=== PATIENT | female | born 1975 | race Caucasian/White ===

== ENCOUNTER → 2018-02-06 20:45 | Outpatient (CLI) | payer SELFPAY ==
[2018-02-15 11:45] LABS: HPV Reflexed? NOT INDICATED
== END ==
PROVIDERS: Visit Provider Obstetrics & Gynecology
DX: Z01.419 Encounter for gynecological examination (general) (routine) without abnormal findings (principal)
CPT/HCPCS: 88175; G0145

== ENCOUNTER 2021-09-21 15:09 | Outpatient (CLI) | payer SELFPAY, OTHER ==
--- NOTE | 2021-09-21 15:17 | US_ITS ---
EXAM: US PELVIS TRANSVAGINAL : 1975 CLINICAL INDICATION: ABNORMAL CT TECHNIQUE: Transvaginal pelvic ultrasound was performed with grayscale and color Doppler imaging. Transvaginal imaging was used for better evaluation of the endometrium and adnexa. This report was created using [employer] report generation technology. COMPARISON: No prior studies are available for comparison. FINDINGS: UTERUS/CERVIX: The uterus measures 9.8 cm in length and is retroflexed. Endometrial thickness is 17 mm. Small nabothian cysts are present. There is no uterine mass. RIGHT OVARY: Right ovary measures 3.5 x 1.8 x 2.3 cm. No evidence of ovarian torsion. LEFT OVARY: Left ovary measures 4.0 x 3.1 x 3.3 cm. Multiple bilateral ovarian follicles are noted largest one measuring 16 mm in diameter on the right and 3.0 cm on the left. FREE FLUID: There is a small amount of physiologic free pelvic fluid present. BLADDER: Not evaluated US/Transvaginal Non- IMPRESSION: Retroflexed uterus with thickened endometrium. Bilateral ovarian follicles. No evidence of ovarian torsion. at 1609 Reported and signed by: Aristides Belle MD Electronically Signed: Aristides Belle MD at 16:07 EST ,
== END 2021-09-21 23:59 | disposition home or self-care (01) ==
PROVIDERS: PCP Family Medicine; Referring Provider Physician Assistant; Visit Provider Physician Assistant
DX: N83.01 Follicular cyst of right ovary (principal); N83.02 Follicular cyst of left ovary; N85.4 Malposition of uterus; R93.89 Abnormal findings on diagnostic imaging of other specified body structures
CPT/HCPCS: 76830

== ENCOUNTER 2021-10-15 14:41 | Outpatient (CLI) | payer OTHER, SELFPAY ==
--- NOTE | 2021-10-15 14:30 | EMB_PTH ---
PATIENT: JENNIFER العراقي LOC: [facility] U#:[id number] AGE/SX: 46/F ROOM: RE10/15/[address]: Dr. Alicia العراقي DO : 1975 BED: DIS: 10/15/2021 SPEC #: [id number] RECD: 10/15/21 16:07 STATUS: THAI PAKO #: [id number] MARILYN: 10/15/21 14:[address]: Alicia العراقي DEPT: SURGICAL PATHOLOGY RECD BY: Helen Brewer ENTERED: 10/18/21 08:36 SP TYPE: ENDOM BX/C MAX DR: Dr. Bryan Chen MD Tissues: Endometrium, NOS Procedures: Surgery Specimen Level IV HEADER OPERATION: Endometrial biopsy PRE-OP DIAGNOSIS: Abnormal uterine bleeding TISSUE SUBMITTED: Endometrial biopsy MICROSCOPIC DIAGNOSIS Endometrium, biopsy: Strips of benign superficial glandular mucosa. See comment. AM:viky 10/19/2021 COMMENT The majority of the glandular mucosa appears to be coming from the endocervix. Clinical correlation is suggested. MICROSCOPIC DESCRIPTION Slides are reviewed. GROSS DESCRIPTION Received is one container labeled with the patient's name and not further designated. The specimen consists of multiple fragments of sutherland hemorrhagic mucoid tissue that in aggregate measure 3 x 2.5 x 0.3 cm. The specimen is totally submitted in one cassette. / SJ:viky 10/18/2021 TC:5 CPT: 29761
[2021-10-22 12:59] LABS: HPV APTIMA, High Risk Negative (Negative)
== END 2021-10-15 23:59 | disposition home or self-care (01) ==
LOC: WOBLAB 14:42
PROVIDERS: PCP Family Medicine; Visit Provider Student in an Organized Health Care Education/Training Program
DX: N93.9 Abnormal uterine and vaginal bleeding, unspecified (principal)
CPT/HCPCS: 36415; 84439; 84443; 87624; 88175; 88305; G0145

== ENCOUNTER 2021-11-11 10:04 | Day surgery (SDC) | payer SELFPAY, OTHER ==
[2021-11-11] VITALS (12 sets, daily range): BP systolic 98–147; BP diastolic 54–89; PULSE 62–84; RESP 16; TEMP 36.6–37.2; O2SAT 95–100; BMI 37.5
--- NOTE | 2021-11-11 | UTC_PTH ---
PATIENT: JENNIFER العراقي LOC: [facility] [place][id number] AGE/SX: 46/F ROOM: RE11/11/[address]: Dr. Alicia العراقي DO : 1975 BED: DIS: 11/11/2021 SPEC #: [id number] RECD: 11/11/21 13:34 STATUS: THAI PAKO #: [id number] MARILYN: 11/11/21 00:[address]: Alicia العراقي DEPT: SURGICAL PATHOLOGY RECD BY: Nicolás Khan ENTERED: 11/12/21 10:41 SP TYPE: NANDINI SANTANA DR: Dr. Bryan Chen MD Tissues: Uterine cervix, NOS Procedures: Surgery Specimen Level IV HEADER OPERATION: Hysteroscopy, D & C Josy, endometrial ablation PRE-OP DIAGNOSIS: Menorrhagia TISSUE SUBMITTED: Uterine curettings MICROSCOPIC DIAGNOSIS Endometrium, curettings: Secretory endometrium with benign stromal hyperplasia consistent with exogenous hormonal effect, acute and chronic inflammation and fibrinopurulent material. Rare strips of benign superficial endocervix. AM:viky 11/15/2021 COMMENT Clinical correlation is suggested. Case has been reviewed in consultation with Dr. Hernandez who concurs with the above diagnosis. IDC:AXEL MICROSCOPIC DESCRIPTION Slides are reviewed. GROSS DESCRIPTION Received in fixative is one container labeled with the patient's name and designated uterine curettings. The specimen consists of multiple fragments of hemorrhagic soft tissue that in aggregate measure 5 x 3 x 0.6 cm. The specimen is totally submitted in four cassettes. / AXEL:viky 11/12/2021 TC:2 CPT: 84299
--- NOTE | 2021-11-11 07:47 | PCM.HP.BLA ---
History and Physical Date of Admission: 11/11/21 HISTORY OF PRESENT ILLNESS: On 10/29/2021, Nedra Wilcox, a 46 year old female 4 0 1 0 4, presented for: Hysteroscopy, dilation and curettage for menorrhagia and acute blood loss anemia secondary to vaginal bleeding. MEDICAL HISTORY: 1. Hypothyroidism ALLERGIES: NKDA MEDICATIONS HISTORY: Denies SURGICAL HISTORY: 1. 01/07/1994 2. 02/03/1995 3. 07/26/1999 4. 06/07/2000 Gallbladder 5. 01/30/2003 and Tubal MENSTRUAL HISTORY: LMP Known?- Approximate-Month KnownAmount/Duration - 5 days, Regularity - Regular, Frequency - monthly days, LMP - 08/16/21, Age Onset Menarche - 11 PAST PREGNANCIES: Total Pregnancies - 5; Full Term Pregnancies - 4; Premature - 0; Abortions, Induced - 0; Abortions, Spontaneous - 1; Ectopics - 0; Multiple Births - 0; Living Children - 4 FAMILY HISTORY: Noncontributory SOCIAL HISTORY: Alcohol Use - denies drinking Smoking - denies smoking Drug Use - denies REVIEW OF SYSTEMS: GENERAL - Denies fever, or chills SKIN - Denies skin changes EYES - Denies visual changes EARS - Denies difficulty hearing NOSE - Denies nasal congestion or bleeding MOUTH - Denies sore throat or difficulty swallowing NECK - Denies pain or swelling RESPIRATORY - Denies shortness of breath or wheezing CARDIOVASCULAR - Denies palpitations or chest pain GASTROINTESTINAL - Denies nausea, vomiting, diarrhea, constipation GENITOURINARY - prolonged menses bleeding. Side and back pain MUSCULOSKELETAL - Denies joint or muscle pain NEUROLOGICAL - Denies localized numbness or weakness PSYCHIATRIC - Denies depression or anxiety ENDOCRINE - Denies heat or cold intolerance, weight loss or gain HEMATO-IMMUNOLOGIC - Denies excessive bleeding with cuts CONSTITUTIONAL - NAD, well nourished, and well developed SKIN - No rash, lesions, or ulcers HEENT - Normocephalic, PERRLA, EOMI LUNGS - normal respiratory rate and rhythm ABDOMEN - Without hepatosplenomegaly, distention, masses, rebound, or guarding; normal bowel sounds; no hernias EXTREMITIES - No edema or calf tenderness NEUROLOGICAL - Cranial nerves II-XII grossly intact PSYCHIATRIC - A and O to time, place, person, mood and affect ASSESSMENT/PLAN: 1. Abnormal Uterine And Vaginal Bleeding, menorrhagia. Hysteroscopy, dilation and curettage for menorrhagia and acute blood loss anemia secondary to vaginal bleeding. Risk, benefits, alternatives were discussed with patient. Risks include but are not limited to: Risk of bleeding twin transfusion, infection, injury to surrounding tissue including bowel/bladder/uterine perforation, VTE, ICU admission. Patient aware and consented.
[2021-11-11 10:38] LABS: Internal QC Validated? YES +Cl - CLEAR BKGD
[2021-11-11] MEDS: Lactated Ringers 1,000 ML 15 ML IV ×2 (10:41→13:50)
[2021-11-11 10:42] LABS: Pregnancy, Urine Negative Negative
--- NOTE | 2021-11-11 11:40 | PCM.OPRPT ---
Report of Operation Date of Procedure: 11/11/21 Pre-Operative Diagnosis: Abnormal uterine bleeding, menorrhagia Post-Operative Diagnosis: Abnormal uterine bleeding, menorrhagia Surgery/Procedure Performed:: , Dilation and curettage, endometrial ablation with Josy Description of Surgical Findings:: Normal-appearing external genitalia. Minimal uterine descensus. Thickened fluffy endometrial lining. Type of Anesthesia: MAC Specimen's removed: Endometrial curettings Estimated Blood Loss (mL): 5 cc Fluids Replaced: 700cc Description of Procedure: Indication/risk/benefits: 46 yo planned for hysteroscopy, dilation curettage for abnormal uterine bleeding and menorrhagia. All risk, benefits, alternatives discussed with patient. Risk include but not limited to: Risk of bleeding to the point transfusion, infection, injury to surrounding tissue including bowel/bladder/uterine perforation, VTE, ICU admission. Patient aware and consented. Procedure: Patient taken to the operating room and placed under MAC anesthesia. Patient placed in the dorsal lithotomy position and prepped and draped in the usual sterile fashion. Weighted speculum placed in posterior vagina and Gatica retractor used to visualize cervix. Anterior lip of cervix grasped with an Allis clamp. Cervix sequentially dilated. Hysteroscope placed through cervical canal noting fluffy endometrial cavity as stated above. Uterus sounded to 8 cm, cavity length 5 cm. Endometrium curetted and a 360 degree manner. Josy device opened. Josy device placed through cervical canal and deployed. Cavity assessment passed. Ablation completed. Josy device removed. Allis clamp removed, cervix hemostatic. Weighted speculum removed. At the end of the procedure all needle, lap, sponge counts were correct x2. Urine output: 100cc Complications None
--- NOTE | 2021-11-11 12:30 | PCM.DC ---
Discharge Instructions Diet Discharge Diet: No restrictions Activity Discharge Activity: Return to Normal Activity and May Shower May resume sexual activity in: 2 weeks Weight Bearing Status: Weight bearing as tolerated Lifting Restrictions: None Dressing / Incision Call your doctor if you observe: Fever of 101 or Higher, Change in Color, Inability to urinate, Using more than 1 pad per hour, Shortness of breath, Dizziness, Swelling in the ankles, Chest pain and Calf discomfort Follow Up Care Please Follow Up With: Alicia Wilcox DO When: 1-2 week postoperative visit Test Results: Test results from this visit will be discussed in further detail at your follow-up appointment, if applicable. Discharge Plan Admission Primary Reason for Your Visit: Endometrial Ablation Attending Provider: Alicia Wilcox Primary Care Provider: Bryan Chen Discharge Orders/Prescriptions Prescriptions: No Action vitamin A 2,400 mcg Capsule 2,400 mcg PO DAILY RF: 0 cholecalciferol (vitamin D3) [Vitamin D3] 50 mcg (2,000 unit) Capsule 50 mcg PO DAILY RF: 0 levothyroxine 50 mcg Capsule 50 mcg PO DAILY RF: 0 Referrals / Follow Up: Bryan Chen MD [Primary Care Provider] - Disposition Disposition (needs filled in before D/C Order can be placed): Home, Self Care
== END 2021-11-11 15:33 | disposition home or self-care (01) ==
LOC: SDC 10:06 → AC 10:08
PROVIDERS: Anesthesiology; PCP Family Medicine; Referring Provider Student in an Organized Health Care Education/Training Program; Visit Provider Student in an Organized Health Care Education/Training Program
PROC: 0U5B8ZZ Destruction of Endometrium, Via Natural or Artificial Opening Endoscopic (ICD-10-PCS; CPT 58558; principal; 2021-11-11 11:15)
DX: N85.01 Benign endometrial hyperplasia (principal); E03.9 Hypothyroidism, unspecified; E07.9 Disorder of thyroid, unspecified; Z79.899 Other long term (current) drug therapy
CPT/HCPCS: 58558; 00952; 81025; 86850; 86900; 86901; 87426; 88305; J7120; J2405

== ENCOUNTER 2024-03-05 19:57 | Emergency (ER) | payer OTHER, SELFPAY ==
[2024-03-05 19:58] VITALS: BP 131/93; PULSE 84; RESP 20; TEMP 35.9; O2SAT 99
--- NOTE | 2024-03-05 20:28 | MRI_ITS ---
EXAM: MR LUMBAR SPINE WITHOUT INTRAVENOUS CONTRAST CLINICAL INDICATION: Low back pain,rt leg, perianal numbness, absent anal wink TECHNIQUE: Multiplanar and multisequence MR images of the lumbar spine without intravenous contrast. COMPARISON: No relevant prior studies available. FINDINGS: VERTEBRAE: Straightening of the usual lordotic curvature. SPINAL CORD: Unremarkable. Normal position and signal intensity of the conus medullaris at T12-L1.. SOFT TISSUES: Unremarkable. /SPINAL CANAL/NEURAL FORAMINA: L1-L2: Unremarkable. Normal disc height and morphology. Normal spinal canal and lateral recesses. Normal neuroforamina. L2-L3: Unremarkable. Normal disc height and morphology. Normal spinal canal and lateral recesses. Normal neuroforamina. L3-L4: Normal height but mild annular disc bulge, minimal narrowing of proximal left neural foramen. Mild ligamentum flavum hypertrophy. Slight effacement of the left lateral recess. No devin spinal canal stenosis L4-L5: Normal height mild annular circumferential disc bulge, mild ligamentum flavum hypertrophy, moderate proximal bilateral neural foraminal stenosis. Tiny focus of high signal intensity in mild right bulging of the disc may be due to slight annular tear. Minimal flattening of the thecal sac anterior to the right lateral recess. L5-S1: Moderate-marked decreased disc height. Moderate annular disc bulge, broad base disc projecting right laterally, with flattening of the ventral thecal sac adjacent to the lateral recesses and mild right greater than left displacement of the S1 nerve roots. There appears to be small focal right posterior lateral herniated disc projecting roughly 7 mm distal to the expected disc margin, best seen on sagittal images. High signal intensity in the left L5-S1 facet joint. Mild Modic type signal changes in the opposing L5 and S1 endplates. MRI/Spine Lumbar (Routine) IMPRESSION: Multilevel degenerative changes. Prominent disc space narrowing, Modic type endplate degenerative changes, annular irregular disc bulging, and superimposed small right focally extruded disc at L5-S1 with mild displacement of the right S1 nerve root. No devin spinal canal stenosis. Electronically Signed: Katiana Fleming MD at 23:21 EDT ,
[2024-03-05] MEDS: Ondansetron 4 MG/2 ML Vial IV (21:00)
[2024-03-05] MEDS: Ketorolac 15 MG/ML Vial IM (21:00)
[2024-03-05] MEDS: HYDROmorphone 0.5 MG/0.5 ML SYRINGE IV (21:01)
[2024-03-05 22:00] VITALS: BP 124/78; PULSE 72; RESP 16; O2SAT 99
--- NOTE | 2024-03-05 23:39 | ED.VIS.BACK ---
HPI History of Present Illness Chief Complaint: Flank Pain Detail of Chief Complaint: Right lower back pain radiating down buttocks posteriorly to ankle Informant: patient Onset/Context/Timing Onset: Days Context: Sudden Onset Chronic pain exacerbated by: Movement, sitting Injury: - (No history of trauma) Timing: Continuous Quality: Dull, Aching and Burning Location: Lumbar, Buttock and Right Leg Current Severity: Mild Maximum Severity: Severe Worsened by: improves with Movement and Bending Relieved by: Nothing Associated Symptoms Associated Symptoms: Radiation to Right Leg and - (Patient reports decreased sensation when she wipes after using the restroom); Negative for Numbness, Tingling, Fever, Abdominal Pain, Dysuria, Unable to Ambulate, Unable to Transfer, Urinary Retention, Urinary Incontinence, Constipation or Fecal Incontinence Narrative Narrative: Patient is a 49-year-old woman. She has history of hypothyroidism. She was seen by chiropractor today. He is concerned she has a herniated disc. She denies fever, chills night sweats. She denies bowel bladder dysfunction. She does report decreased sensation in the perineum since yesterday. She states when she wipes does not feel the same/normal. She also complains of severe pain radiating down the posterior aspect of her leg all the way to her foot. She prefers to stand over sitting. She prefers to have her right leg flexed. There is no history of trauma. There is no history of dental procedure. She is not on an anticoagulant or antithrombotic. She denies dragging her foot. Prior similar symptoms: Yes Recent Illness/Hospitalization: Yes [facility] Medical History Wears glasses Wears dentures Thyroid disease Arthritis Anemia Restless legs Syncope History of IBS Non-smoker History of edema History of rheumatic fever Home Medications ?Medication ?Instructions ?Recorded ?Last Taken ?Type cholecalciferol (vitamin D3) 50 50 mcg PO DAILY 11/05/21 Unknown History mcg (2,000 unit) capsule (Vitamin D3) levothyroxine 50 mcg capsule 50 mcg PO DAILY 11/05/21 11/11/21 06:00 History vitamin A 2,400 mcg capsule 2,400 mcg PO DAILY 11/05/21 Unknown History methylprednisolone 4 mg tablets in 4 mg PO UD #1 packet 03/05/24 Unknown Rx a dose pack oxycodone-acetaminophen 5 mg-325 1 tab PO Q6H PRN PRN pain 5 days 03/05/24 Unknown Rx mg tablet #20 TABLETS Allergy/AdvReac Type Severity Reaction Status Date / Time codeine Allergy Mild Nausea Verified 03/05/24 19:58 adhesive tape (surgical tape) Allergy Rash Verified 06/29/22 16:37 Surgical History Hx laparoscopic cholecystectomy History of Social History (Updated 03/05/24 @ 23:[address] Emmanuel Lincoln MD) household members: spouse Smoking Status: Never smoker ROS ROS ED Constitutional Constitutional ED: Denies chills, fever(s), subjective or sweats Eyes Eyes: Denies blurry vision, change in vision or diplopia ENT ENT ED: Denies ear pain, rhinorrhea or sore throat Cardiovascular Cardiovascular: Denies chest pain, orthopnea, palpitations or paroxysmal nocturnal dyspnea Respiratory/Chest Respiratory/Chest: Denies dyspnea, dyspnea on exertion, orthopnea or paroxysmal nocturnal dyspnea Gastrointestinal Gastrointestinal: Denies abdominal pain, constipation, diarrhea, nausea or vomiting Genitourinary Genitourinary ED: Denies dysuria, hematuria or urinary frequency Musculoskeletal Musculoskeletal: Reports back pain; Denies arthralgias, myalgias or neck pain Integumentary Denies rash Neurologic Neurologic: Denies headache(s) or paresthesias Endocrine Endocrinology: Denies cold intolerance or heat intolerance Hematologic/Lymphatic Hematologic/Lymphatic: Denies easy bleeding or easy bruising EXAM Physical Exam Const Vital Signs: 03/05/24 19:58 03/05/24 22:00 Temperature 96.6 F L Temperature Source Temporal Pulse Rate 84 72 Respiratory Rate 20 H 16 Blood Pressure 131/93 H 124/78 H Blood Pressure Mean 105 93 Pulse Ox 99 99 Oxygen Delivery Method Room Air Room Air Positive well nourished and well developed Constitutional Narrative: Patient appears uncomfortable. Every time I straighten out her legs she flexes at the knee and hip. She states this causes her more pain. General Appearance ED: well developed; Negative for NAD HEENT Reports moist mucous membranes HEENT Narrative: Head is atraumatic normocephalic. Ears normal. Nares patent. Eyes PERRL and EOMs intact bilaterally General Eye ED: Negative for pale conjunctiva or scleral icterus Neck no lymphadenopathy, supple and no JVD Resp normal respiratory effort and clear to auscultation bilaterally Cardio regular rate, regular rhythm, S1 normal heart sound, S2 normal heart sound and no murmurs GI normal to inspection, nondistended, normoactive bowel sounds, soft to palpation, non-tender, non-distended and no masses Back/Spine normal to inspection and no thoracic nor lumbar tenderness Back/Spine Narrative: Patient has equivocal crossover test. EHL is weaker on the right. This may be due to pain. There is no clonus or Babinski sign. Patient reports altered sensation L5-S1 on the left. Sensation L3 and L4 are normal bilaterally. Rectal tone is diminished. Patient did not have an anal wink. Patella reflex was 2+ and symmetric. Ankle reflex on the right was diminished compared to the left. DP and PT pulse are palpable. Patient able to plantar and dorsiflex against resistance. Because of the amount of pain she was not able to stand up to ambulate and assess if she could walk on heels and toes and perform a 1 legged squat. Lumbar Spine / Lower Back: straight leg raise positive right at 30 degrees Extremity normal to inspection and no clubbing, cyanosis or edema General Extremety ED: Negative for edema or tenderness General Extremity: Negative for edema Neuro oriented x3 and no sensory deficits noted Deep Tendon Reflexes: Rt Patellar (L4): 2+, Lt Patellar (L4): 2+, Rt Ankle (S1): 1+ and Lt Ankle (S1): 2+ Deep Tendon Reflexes Back: Rt Patellar (L4): 2+, Lt Patellar (L4): 2+, Rt Ankle (S1): 1+ and Lt Ankle (S1): 2+ Plantar Reflex: Downgoing: bilateral Psych mental status grossly normal Skin no rashes or lesions noted and no wounds MDM MDM MDM Narrative Medical decision making narrative: Concern patient has a herniated disc possibly L5-S1. However with patient reporting decreased perianal sensation decreased rectal tone and no anal wink concerned this may represent cauda equina from a herniated disc. Stat MRI was obtained. She was medicated with ketorolac, hydromorphone for pain and Zofran for nausea. Radiography Diagnostic Testing: Clinical Impression(s) from Imaging Studies Lumbar Spine MRI 03/05/24 20:28 IMPRESSION: Multilevel degenerative changes. Prominent disc space narrowing, Modic type endplate degenerative changes, annular irregular disc bulging, and superimposed small right focally extruded disc at L5-S1 with mild displacement of the right S1 nerve root. No devin spinal canal stenosis. Electronically Signed: Katiana Fleming MD at 23:21 EDT , Discharge Plan Triage Chief Complaint: Flank Pain ED Provider: Emmanuel Lincoln Dx/Rx/DC Orders Clinical Impression: Lumbosacral radiculopathy at L5, Herniation of intervertebral disc between L5 and S1, Elevated blood-pressure reading without diagnosis of hypertension Prescriptions: New methylprednisolone 4 mg tablets,dose pack 4 mg PO UD Qty: 1 0RF oxycodone-acetaminophen 5-325 mg tablet 1 tab PO Q6H PRN PRN (Reason: pain) 5 Days Qty: 20 0RF No Action vitamin A 2,400 mcg Capsule 2,400 mcg PO DAILY cholecalciferol (vitamin D3) [Vitamin D3] 50 mcg (2,000 unit) Capsule 50 mcg PO DAILY levothyroxine 50 mcg Capsule 50 mcg PO DAILY Primary Care Provider: Claudette Alexandra Referrals: Christian Rodriguez MD [Med Staff - Active Staff] - 3-5 Days Claudette Alexandra PA [Primary Care Provider] - Activity Restrictions/Additional Instructions: Return if the pain is severe and not controlled by the medicine prescribed. Return also if your foot drops and you are dragging it. Otherwise follow-up with Dr. Rodriguez Print Language: Yakut Disposition Disposition: Home, Self Care
[2024-03-06] VITALS: BP 107/74; PULSE 54; RESP 16; O2SAT 98
[2024-03-06] MEDS: HYDROmorphone 0.5 MG/0.5 ML SYRINGE IV (00:18)
[2024-03-06 00:19] VITALS: BP 107/74; PULSE 54; RESP 16; TEMP 36.6; O2SAT 98
== END 2024-03-06 00:22 | disposition home or self-care (01) ==
PROVIDERS: Emergency Provider Emergency Medicine; PCP Physician Assistant; Visit Provider Emergency Medicine
DX: M51.17 Intervertebral disc disorders with radiculopathy, lumbosacral region (principal); R03.0 Elevated blood-pressure reading, without diagnosis of hypertension
CPT/HCPCS: 72148; 96372; 96374; 96375; 96376; 99282; J2405

== ENCOUNTER → 2024-04-18 | Outpatient (CLI) | payer OTHER, SELFPAY ==
--- NOTE | 2024-04-18 | EMB_PTH ---
PATIENT: JENNIFER العراقي LOC: [facility] U#:[id number] AGE/SX: 49/F ROOM: RE04/18/[address]: OLIVIA Farrell : 1975 BED: DIS: 04/18/2024 SPEC #: [id number] RECD: 04/18/24 15:16 STATUS: THAI PAKO #: [id number] MARILYN: 04/18/24 00:[address]: Stefanie Newby NP DEPT: SURGICAL PATHOLOGY RECD BY: Loi Avalos ENTERED: 04/18/24 15:17 SP TYPE: [facility] BX/C MAX DR: RONI Robertson Tissues: Endometrium, NOS Procedures: Surgery Specimen Level IV HEADER OPERATION: Endometrial biopsy PRE-OP DIAGNOSIS: Abnormal uterine bleeding TISSUE SUBMITTED: Endometrial tissue MICROSCOPIC DIAGNOSIS Endometrial biopsy: Strips of endometrial epithelium. Fragments of benign endocervical epithelium, blood and mucous. See comment. AXEL/ 04/19/2024 COMMENT The specimen predominantly consists of endometrial epithelium. Underlying stroma is not seen. Repeat biopsy is suggested for definite diagnosis, if clinically indicated. Case has been reviewed in consultation with Dr. Hayward who concurs with the above diagnosis. IDC:AM MICROSCOPIC DESCRIPTION Slides are reviewed. GROSS DESCRIPTION Received in fixative is one container labeled with the patient's name and designated Endometrial biopsy. The specimen consists of multiple irregular fragments of hemorrhagic soft tissue that in aggregate measure 2.0 x 2.0 x 0.1 cm. The specimen is totally submitted in one cassette. 04/18/2024 TC:5 CPT:68396
[2024-04-18 11:36] LABS: Absolute Lymphocyte Count 2.19 X10^3/uL (0.83-4.51); Basophil# 0.05 X10^3/uL; Basophil% 0.7 % (0-1); Eosinophil# 0.12 X10^3/uL; Eosinophils% 1.7 % (0-5); Hematocrit 37.7 % (37-47); Hemoglobin 12.3 g/dL (12.0-15.0); Lymphocyte # 2.19 X10^3/ul (0.83-4.51); Lymphocyte % 31.4 % (19-41); Mean Corp Hgb Conc 32.6 g/dL (32-36); Mean Corpuscular Hgb 28.6 pg (27.0-32.0); Mean Corpuscular Volume 87.7 fL (81-99); Mean Platelet Vol. 9.1 fl (6.2-12.0); Monocyte# 0.57 X10^3/uL; Monocyte% 8.2 % (0-10); NRBC Flagged by Analyzer 0 % (0-5); Neutrophil # 4.02 X10^3/uL (2.7-7.7); Neutrophil % 57.7 % (47-70); Platelet Count 333 K/mm3 (150-450); RBC Distribution Width CV 13.4 % (11.6-14.6)
[2024-04-18 13:09] LABS: Estradiol 87.2 pg/mL; Follicle Stimulating Hormone 13.4 mIU/mL
[2024-04-25 15:09] LABS: HPV APTIMA, High Risk Negative (Negative)
== END | disposition home or self-care (01) ==
PROVIDERS: PCP Physician Assistant; Referring Provider Nurse Practitioner Women's Health; Visit Provider Nurse Practitioner Women's Health
DX: Z12.4 Encounter for screening for malignant neoplasm of cervix (principal); N93.9 Abnormal uterine and vaginal bleeding, unspecified
CPT/HCPCS: 36415; 82670; 83001; 85025; 87624; 88175; 88305; G0145

== ENCOUNTER 2024-07-16 05:28 | Day surgery (SDC) | payer SELFPAY, OTHER ==
[2024-07-16] VITALS (13 sets, daily range): BP systolic 131–141; BP diastolic 76–92; PULSE 70–84; RESP 16; TEMP 36.1–36.7; O2SAT 97–100; BMI 34.5
[2024-07-16] MEDS: Lactated Ringers 1,000 ML 40 ML IV (06:10)
[2024-07-16 06:17] LABS: Internal QC Validated? YES +Cl - CLEAR BKGD; Pregnancy, Urine Negative Negative; Record Kit Lot#,Urine Preg 872158
[2024-07-16 06:37] LABS: Hematocrit 38.5 % (37-47); Hemoglobin 12.7 g/dL (12.0-15.0); Mean Corpuscular Hgb 28.7 pg (27.0-32.0); Mean Corpuscular Volume 86.9 fL (81-99); Mean Platelet Vol. 9.3 fl (6.2-12.0); Platelet Count 243 K/mm3 (150-450); RBC Distribution Width CV 12.2 % (11.6-14.6); RBC Distribution Width SD 39.1 fl (35.1-43.9); Red Blood Count 4.43 M/mm3 (4.2-5.4); White Blood Count 5.8 K/mm3 (4.4-11.0)
[2024-07-16] MEDS: Phenazopyridine 95 MG Tablet 190 MG PO (06:43)
[2024-07-16] MEDS: Celecoxib 200 MG Capsule 400 MG PO (06:44)
[2024-07-16] MEDS: Acetaminophen 500 MG Tablet 1000 MG PO (06:44)
--- NOTE | 2024-07-16 06:44 | PRE.ANES_ITS ---
ASA Classification* ASA Classification ASA Classification: 2 Assessment & Plan Anesthesia* Anesthesia Assessment Anesthesia Assessment: Discussed sedation and/or anesthesia options, risks, benefits, and alternatives with patient/parents/legal guardian/POA. Questions invited. The patient/parents/legal guardian/POA seems to understand and agrees to proceed with anesthesia plan. Reviewed the physical assessment, medical history, allergy history and patient home medications list prior to surgery/procedure/anesthetic and documented any changes. Performed airway and anesthesia risk assessments. Anesthesia Type Anesthesia Type: General Anesthesia Focused Assessment* Temperature: 98.0 F Pulse Rate: 80 Blood Pressure: 138/80 Respiratory Rate: 16 Pulse Ox: 100 Airway Assessment Mouth opens: >3 cm Mallampati Score: II Focused Labs Anesthesia Preop lab: CBC WBC 5.8 K/mm3 (4.4-11.0) 07/16/24 06:20 RBC 4.43 M/mm3 (4.2-5.4) 07/16/24 06:20 Hgb 12.7 g/dL (12.0-15.0) 07/16/24 06:20 Hct 38.5 % (37-47) 07/16/24 06:20 Plt Count 243 K/mm3 (150-450) 07/16/24 06:20 CHEMISTRY Magnesium Pending 07/16/24 06:20 TSH 4.90 uIU/mL (0.358-3.74) H 10/15/21 14:43 COAG Urine Test Negative Negative 07/16/24 06:05 Pre-Assessment Diagnosis/Proposed Procedure Planned Operative Procedure(s): (B) Lap Robotic Hysterectomy Brandt Salping Anesthesia History 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 When Was Last Pacemaker Check QUESTION #4 FULL TEXT: You/Your Family Experience fever (hyperthermia) with Anesthesia Last Oral Intake Last Oral intake: Last Oral Intake NPO since 04:30 07/16/24 06:34 Meds taken in AM with sips of Yes 07/16/24 06:34 water? Meds patient instructed to levothyroxine, lexapro 07/16/24 06:34 take am of surgery PONV PONV - slot operations director: PONV - slot operations director Female Yes 07/02/24 09:58 HX of Motion Sickness No 07/02/24 09:58 HX of N/V After Surgery Yes 07/02/24 09:58 Non-Smoker Yes 07/02/24 09:58 Duration of Surgery greater Yes 07/02/24 09:58 than 60 minutes Number of Risk Factors 4 07/02/24 09:58 PONV Score Severe Risk 07/02/24 09:58 Height & Weight Height & Weight: Anesthesia: Height & Weight Height 5 ft 3 in 07/16/24 06:34 Weight: 88.4 kg 07/16/24 06:34 Body Mass Index (BMI) 34.5 07/16/24 06:34 Respiratory Assessment Respiratory Assessment - slot operations director: Respiratory Tract Infection Hx - slot operations director Hx Respiratory Tract Infection No 07/02/24 09:58 STOP Sleep Apnea STOP Sleep Apnea - slot operations director: STOP Sleep Apnea - slot operations director Hx Hypertension No 07/02/24 09:58 Hx Sleep Apnea No 07/02/24 09:58 CPAP BIPAP Do you snore loudly (louder No 07/02/24 09:58 than talking or can be heard Do you often feel tired/ No 07/02/24 09:58 fatigued/ sleepy during daytime? Has anyone observed you stop No 07/02/24 09:58 breathing during sleep? STOP Results Negative 07/02/24 09:58 QUESTION #5 FULL TEXT : Do you snore loudly (louder than talking or can be heard through closed doors)? 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 Specify any problems Hx of Preganancy in last 3 N/A 07/02/24 09:58 Months Nurse Filling Out Transfusion NBUCHER 07/02/24 09:58 & Questions: Date: 07/02/24 07/02/24 09:58 Time: 09:59 07/02/24 09:58 Patient unable to answer at this time (ie. confused, unrespo /Reproduction History /Reproductive History - slot operations director: /Reproductive Hx- slot operations director Hx Now No 07/02/24 09:58 Gestational Age (in weeks): EDC: Hx Hx Para Hx Section SAB No 07/02/24 09:58 Active Medications Active Medications: Current Medications Generic Name Dose Route Start Last Admin Trade Name Freq PRN Reason Stop Dose Admin Acetaminophen 1,000 mg 07/16/24 07:30 Acetaminophen 500 Mg Tablet PO 07/16/24 07:31 PREOP ONE Celecoxib 400 mg 07/16/24 07:30 Celecoxib 200 Mg Capsule PO 07/16/24 07:31 X1 ONE Gabapentin 600 mg 07/16/24 07:30 Gabapentin 600 Mg Tablet PO 07/16/24 07:31 PREOP ONE Lactated Ringer's 1,000 mls @ 40 mls/hr 07/16/24 07:30 IV .Q25H SUZY Cefazolin Sodium 2 gm/ Sodium 110 mls @ 150 mls/hr 07/16/24 07:30 Chloride IV 07/16/24 08:13 PREOP ONE Lactated Ringer's 1,000 mls @ 40 mls/hr 07/16/24 07:30 IV .Q25H SUZY Insulin Human Lispro 0 unit 07/16/24 07:30 Insulin Lispro 100 Unit/Ml Insuln.Pen SC Q4H PRN PRN BG >/= 180, SEE PROTOCOL Protocol Ondansetron HCl 4 mg 07/16/24 07:30 Ondansetron 4 Mg/2 Ml Vial IV 07/16/24 07:31 X1 ONE Phenazopyridine HCl 190 mg 07/16/24 07:30 Phenazopyridine 95 Mg Tablet PO 07/16/24 07:31 X1 ONE [facility] Medical History Depression PONV (postoperative nausea and vomiting) Wears glasses Wears dentures Thyroid disease Arthritis Anemia Restless legs Syncope History of IBS Non-smoker History of edema History of rheumatic fever Home Medications ?Medication ?Instructions ?Recorded ?Last Taken ?Type cholecalciferol (vitamin D3) 50 50 mcg PO DAILY 11/05/21 Unknown History mcg (2,000 unit) capsule (Vitamin D3) vitamin A 2,400 mcg capsule 2,400 mcg PO DAILY 11/05/21 Unknown History escitalopram oxalate 20 mg tablet 20 mg PO QDAY 04/18/24 07/16/24 04:30 History (Lexapro) levothyroxine 25 mcg capsule 25 mcg PO QDAY 06/17/24 07/16/24 04:30 History FACTOR 5 07/02/24 07/07/24 History Allergy/AdvReac Type Severity Reaction Status Date / Time codeine Allergy Mild Nausea Verified 07/16/24 06:32 adhesive tape (surgical tape) Allergy Rash Verified 07/16/24 06:32 Family History Father Cancer Throat Surgical History S/P endometrial ablation History of mandibular surgery S/P knee surgery History of back surgery Hx laparoscopic cholecystectomy History of Social History household members: spouse current occupational status: unemployed Smoking Status: Never smoker alcohol intake: never substance use type: does not use seatbelt use: always do you feel safe at home: Yes additional social history: - [employer] Review of Systems (Anesthesia) ROS Narrative System reviewed and no additional complaints, except as documented.
[2024-07-16] MEDS: Gabapentin 600 MG Tablet PO (06:45)
[2024-07-16 07:01] LABS: Magnesium 2.5 mg/dL (1.6-2.6)
[2024-07-16] MEDS: Magnesium 1 GM over 15 mins IV (07:22)
--- NOTE | 2024-07-16 07:27 | HP.PCM_ITS ---
History and Physical Date of Admission: 07/16/24 Intake Vital Signs 04/18/2410:24 06/17/2409:27 06/17/2409:29 Height 5 ft 3 in 5 ft 3 in 5 ft 3 in Weight: 192 lb 6 oz BMI 34.0 BP 130/83 H Intake Visit Reasons: surgical consult Heating Fixture Tender Required: No Is patient in pain?: No Allergies codeine Allergy (Mild, Verified 06/17/24 09:26) Nauseaadhesive tape (surgical tape) Allergy (Verified 06/17/24 09:26) Rash Medications ?Medication ?Instructions ?Recorded ?Confirmed ?Type cholecalciferol (vitamin D3) 50 50 mcg PO DAILY 11/05/21 06/17/24 History mcg (2,000 unit) capsule (Vitamin D3) vitamin A 2,400 mcg capsule 2,400 mcg PO DAILY 11/05/21 06/17/24 History oxycodone-acetaminophen 5 mg-325 1 tab PO Q6H PRN PRN pain 5 days 03/05/24 06/17/24 Rx mg tablet #20 TABLETS escitalopram oxalate 20 mg tablet 20 mg PO QDAY 04/18/24 06/17/24 History (Lexapro) norethindrone acetate 5 mg tablet 5 mg PO .COMPLEX #45 tabs 05/27/24 06/17/24 Rx levothyroxine 25 mcg capsule 25 mcg PO QDAY 06/17/24 06/17/24 History Post menopausal: No Patient : No : No PFSH Medical History Wears glasses Wears dentures Thyroid disease Arthritis Anemia Restless legs Syncope History of IBS Non-smoker History of edema History of rheumatic fever Surgical History S/P endometrial ablation History of mandibular surgery S/P knee surgery History of back surgery Hx laparoscopic cholecystectomy History of Family History Father Cancer Throat Social History household members: spouse current occupational status: unemployed Smoking Status: Never smoker alcohol intake: never substance use type: does not use seatbelt use: always do you feel safe at home: Yes additional social history: - Stephen Kirby [facility] surgical consult Details: JENNIFER WILCOX is a 49 year old (all sections) who presents for discussion about hysterectomy. She had an ablation with Alicia Wilcox in 2021 that did not take. She spots almost every day and worse with intercourse. Ultrasound shows a 7/7 x 4.2 x 5.4 cm uterus, normal ovaries. She had an EMB recently that was normal. Her TSH was elevated but she is now on levothyroxine by her pcp. She has a h/o back surgery and jaw surgery (this year) History 5 Elective abortions Hx Para 4 Spontaneous abortions Hx # Term Pregnancies Ectopic pregnancies Hx # Pregnancies Multiple births # of living children 4 ROS Const ROS Unobtainable: All systems reviewed & are unremarkable except as noted in H Resp Resp: Reports system reviewed and no additional complaints, except as documented; Denies cough GI GI: Reports as per HPI Psych Psych: Reports system reviewed and no additional complaints, except as documented Exam Const General: cooperative, healthy appearing, comfortable and no acute distress Resp Effort & Inspection: normal respiratory effort Skin General: no rashes or lesions noted Psych Appearance: grossly normal Speech and Movement: speech and movement normal Coding Level of Care Code Off vis,est,level 4 Diagnoses History of Z98.891 History of endometrial ablation Z98.890 Abnormal uterine bleeding (AUB) N93.9 Assessment and Plan Assessment and Plan (1) History of : Status: Acute Comment: X4 (2) History of endometrial ablation: Status: Acute Comment: 2021 no menses X 1 year (3) Abnormal uterine bleeding (AUB): Status: Acute Comment: EMB NL. Provera Rx: will call if prolonged menses recurs and wants LAVH Plan: After discussing the patient's diagnosis and treatment plan options, patient wis hes to proceed with surgical management. I have discussed with the patient the risks, benefits, and alternatives of the procedure which include but are not limited to risks of anesthesia, bleeding, infection, possible damage to bowel, bladder, or surrounding vasculature which could lead to additional surgery to evaluate any complications. Patient agrees to procedure and wishes to proceed. ACOG/uptodate references given for additional information regarding procedure. plan is for a total robotic hysterectomy, bs. plan to rpt tsh prior to surgery. Medications: New levothyroxine 25 mcg PO QDAY
--- NOTE | 2024-07-16 07:28 | PCM.DC ---
Discharge Instructions Diet Discharge Diet: No restrictions DC O2, CPAP, BIPAP needs Additional Home O2 Discharge instructions: No Dressing / Incision May resume sexual activity in: 6 weeks Weight Bearing Status: Full weight bearing Dressing / Incision Call your doctor if your incision/area has: Continuous Slow Oozing, Sudden Increased Bleeding, Increased Pain/ Swelling, Increased Redness and Foul Smelling Discharge Call your doctor if you observe: Fever of 101 or Higher, Using more than 1 pad per hour, Shortness of breath, Chest pain and Uncontrolled pain Suture Line Care: Avoid Pulling/Pushing and Avoid Pinching/Bending Remove Dressing in: 1 week (if present) Cleanse incision/area with: Soap & Water and Keep Dressing Clean & Dry Follow Up Care Please Follow Up With: Amada Swartz DO When: Call to make an appointment with your doctor for a postop visit in 2 and 6 weeks Test Results: Test results from this visit will be discussed in further detail at your follow-up appointment, if applicable. Discharge Plan Admission Primary Reason for Your Visit: hysterectomy Attending Provider: Amada Swartz Primary Care Provider: Claudette Alexandra Instructions Print Language: Macedonian Discharge Orders/Prescriptions Prescriptions: New ibuprofen 800 mg tablet 800 mg PO Q8H PRN (Reason: pain) Qty: 30 0RF ondansetron HCl 4 mg tablet 4 mg PO Q6H PRN (Reason: nausea and vomiting) Qty: 20 0RF oxycodone-acetaminophen [Percocet] 5-325 mg tablet 1 tab PO Q4H PRN (Reason: pain) 7 Days Qty: 30 0RF Rx Instructions: 1-2 tabs q 4 hrs as needed for pain Continued escitalopram oxalate [Lexapro] 20 mg tablet 20 mg PO QDAY levothyroxine 25 mcg capsule 25 mcg PO QDAY vitamin A 2,400 mcg Capsule 2,400 mcg PO DAILY cholecalciferol (vitamin D3) [Vitamin D3] 50 mcg (2,000 unit) Capsule 50 mcg PO DAILY Held FACTOR 5 Hold Instructions: Resume on 08/16/24. do not use for one month post op Referrals / Follow Up: Claudette Alexandra PA [Primary Care Provider] - Disposition Disposition (needs filled in before D/C Order can be placed): Home, Self Care
--- NOTE | 2024-07-16 07:30 | HYST_PTH ---
PATIENT: JENNIFER العراقي LOC: [facility] [place] [facility] [place][id number] AGE/SX: 49/F ROOM: RE07/16/[address]: Dr. Amada Swartz DO : 1975 BED: DIS: 07/16/2024 SPEC #: [id number] RECD: 07/16/24 11:13 STATUS: THAI PAKO #: [id number] MARILYN: 07/16/24 07:[address]: Amada Swartz DEPT: SURGICAL PATHOLOGY RECD BY: Helen Brewer ENTERED: 07/16/24 12:08 SP TYPE: HYSTERECT OTHR DR: RONI Robertson Tissues: Uterus, NOS Procedures: Surgery Specimen Level V HEADER OPERATION: Laparoscopic robotic hysterectomy with bilateral salpingectomy PRE-OP DIAGNOSIS: History of endometrial ablation, abnormal uterine bleeding TISSUE SUBMITTED: Uterus, cervix, bilateral fallopian tubes MICROSCOPIC DIAGNOSIS Uterus, cervix, bilateral fallopian tubes, hysterectomy with bilateral salpingectomy: Moderately differentiated adenocarcinoma, favor cervical carcinoma, HPV independent, gastric type. See comment. SJ 07/30/2024 COMMENT [facility] and reviewed by Dr. Smart and above diagnosis is rendered. Complete report is viewable in patient's EMR. Dr. Smart also commented that carcinoma extensively invaded uterus and involves fallopian tube mucosa. He also suggested that clinical exclusion of metastatic carcinoma from pancreatobiliary tract. CANCER SUMMARY (uterine cervix): Specimen - Uterus, cervix, bilateral fallopian tubes Procedure - hysterectomy with bilateral salpingectomy Tumor site: extensively involves entire cervix, uterine wall and fallopian tube mucosa. Histologic type: adenocarcinoma, favor cervical carcinoma, HPV independent, gastric type. Histologic grade: moderately to poorly differentiated. Stromal invasion: Tumor measures up to 1.5 cm in thickness. Extent of depth invasion: deep one third. Number of blocks involved: 24 (cervix, uterus and fallopian tube). Lymph-Vascular invasion: not identified. Margins: tumor is present focally at the deep margin, posterior cervix (block #22). Regional lymph nodes: no nodes submitted or found. Distant metastasis: not applicable. Additional pathologic findings -intramural leiomyomas Ancillary studies - Please see complete IHC report from [facility] (HPV 16/18/33 - negative) PATHOLOGIC STAGE: [id number] Nx Mx The above summary is in compliance with [employer] [place] [employer] (CAP) Cancer Protocols Checklist and [place] Joint Committee of Cancer (AJCC), Staging Manual, 7th Ed. This case was reviewed in consultation with Drs. Wen and Mainor who concur with the above diagnosis. IDC:[email or web address] MICROSCOPIC DESCRIPTION Slides are reviewed. GROSS DESCRIPTION Received in fixative is one container labeled with the patient's name and designated uterus. The specimen consists of a uterus with attached cervix and attached left fallopian tube and detached right fallopian tube. The uterus with cervix measures 12.5 x 7.5 x 5.0 cm and weighs 186 gm. The ectocervix is unremarkable. The cervical os is oval in contour and free of mass lesions. The endocervical canal measures 4.0 cm in length and is grossly unremarkable. The triangular endometrial cavity measures 5.0 x 5.0 cm. The reddish-sutherland velvety endometrium measures up to 0.2 cm in thickness. The myometrium measures 2.5 cm in average thickness and contains two firm rubbery nodules ranging in size from 0.7 to 1.0cm in greatest dimension and resembling leiomyomas. The right and left fallopian tubes are similar in appearance with average lengths of 5.0cm and average diameter of 0.7cm. Fimbrial ends are identified. Focal disruption of the distal end of the fallopian tubes is present suggestive of previous pubal ligation. [place] Floor sections are submitted as follows: 1 - anterior cervix, 2 - posterior cervix, 3 & 4 - anterior uterine wall, 5 & 6 - posterior uterine wall, 7 -myometrial masses, 8 - right fallopian tube, 9-left fallopian tube. / AM:mr 07/16/2024 Additional sections are submitted as follows: 10-19- cervix, endocervix and entire anterior endometrium, 98-58-[id number] cervix, endocervix, and remainder of posterior endometrium. NOTE: The anterior cervical surface and myometrial cervical tissues are inked black. The entire posterior pericervical and posterior serosal surface is inked blue. AM.mr 07/17/2024 Additional sections are submitted as follows: 31&32- remainder of right and left fallopian tubes (right fallopian tube is inked black). 07/18/2024 TC:0 CPT: 40953
[2024-07-16] MEDS: Cefazolin 2 GM in 0.9% Normal Saline (100mL Bag) 100 ML IV (07:40)
[2024-07-16] MEDS: Bupivacaine 0.25% 30 ML Vial (08:30)
[2024-07-16] MEDS: Ondansetron 4 MG/2 ML Vial IV (09:40)
--- NOTE | 2024-07-16 09:48 | OP.PCM_ITS ---
Problems Associated Problem List Diagnoses (1) History of endometrial ablation: (2) Abnormal uterine bleeding (AUB): (3) History of : Multi Select Codes Urinary/Genital Urinary/Genital CPT Codes: 92432 Cystoscopy and 06345 TLH+BS/O <250gr uterus Operative Report (Standard) Operative Information Date of Procedure: 07/16/24 Pre-Operative Diagnosis: pelvic pain, post ablation syndrome, fibroid uterus, abnormal uterine bleeding Post-Operative Diagnosis: pelvic pain, post ablation syndrome, fibroid uterus, abnormal uterine bleeding Surgery/Procedure Performed: total robotic hysterectomy, bilateral salpingectomy, lysis of adhesions unloader: Yes Regional Sales Director: Philip Mcguire Tasks completed by first leveler: Closing, Insert Trochanter and Retracting Additional accounting administrative assistant?: Yes Additional Early Childhood Teacher #2: Kelsey Canas Tasks completed by accounting administrative assistant #2: Closing, Insert Trochanter, Trocar and Retracting Type of Anesthesia: General RN Documented Start/Stop Times: Operation Date: 07/16/24 07:30 Case Time Into Pre-Op 07/16/24 05:36 Out of Pre-Op 07/16/24 07:31 Procedure Start Time: 08:11 Procedure Stop Time: 09:50 Select all DRAINS/GRAFTS/IMPLANTS that apply: None Special Medications: none Estimated Blood Loss: 50cc Fluids Replaced: 1 L Specimen collected: Yes Description of specimen(s) removed: uterus, cervix, bilateral fallopian tubes Description of surgery: Reason for surgery: This is a 49-year-old G4, P4 who presented to my office with history of abnormal bleeding (normal emb), pelvic pain, fibroid uterus, and desire for hysterectomy. the planned procedure is for a robotic hysterectomy the risks benefits and alternatives were discussed with the patient the patient had a clear understanding of the procedure and a consent form was signed. Procedure: The patient was placed in the dorsal low lithotomy position and prepped and draped in the normal sterile fashion both abdominally and in the perineum. Her legs were placed in stirrups a Landa catheter was inserted into the urethra without difficulty. A weighted speculum was placed in the vagina and a single- tooth tenaculum was used to grasp the anterior lip of the cervix. An advincula uterine manipulator was inserted through the cervix without complication. It was then tied into place at the 2 and 10:00 locations on the cervix. Gloves were changed and attention was turned towards the abdomen. Approximately 23 cm above the pubic symphysis in the midline, and after Marcaine injection, a 8 mm incision was made. An 8 mm trocar was inserted through the laparoscope, then inserted into the abdomen under direct visualization using the laparoscope. Good abdominal placement was noted and no complications were appreciated. An air seal device was utilized to create pneumoperitoneum. At 12 cm lateral to the midline on the left and right sides 8 mm accessory ports were placed. Next a left upper quadrant 8 mm accounting administrative assistant port site was placed. The patient was placed in steep Trendelenburg position. The robot was docked. Fine omental adhesions to the anterior abdominal wall were taken down using the Vessel sealer device. The hysterectomy was initiated first by elevating the fallopian tubes and cauterizing and cutting the underlying mesosalpinx. Next, the round ligament on each side using the vessel sealer device. the broad ligament was then and taken down using the vessel sealer device. Next, the bladder flap was taken down without complication. There were dense adhesions over the bladder flap and there was noted to be a cervical fibroid or mass present. This was done using monopolar cautery to the level of the cervical vaginal junction. After the bladder flap was created, uterine vessels were then isolated and cauterized using the vessel sealer device and EndoShears. At this point the uterine vessels were taken down further starting from the ascending branch, dissecting along the edges of the cervix to the level of the cervical vaginal junction with hemostasis appreciated. The cervical vaginal junction was then using monopolar cautery in a circumferential pattern across the superior aspect of the cervix. The specimen was delivered through the vagina and sent to pathology. The remaining vaginal cuff was then closed using a V lock suture. This was performed in a running technique. Excellent hemostasis was obtained and good closure was noted. Irrigation was then performed. All operative sites were noted to be hemostatic. A cystoscopy was performed with a 70 degree cystoscope through the urethra into the bladder without complication. The bladder was instilled with approximately 250 cc of normal saline. Intraoperative images were made. Ureteral orifices and jets were identified. No suture material was appreciated in the bladder. The bladder was then drained and cystoscope was removed. The abdominal cavity was again examined using the laparoscope after the robot was undocked. All operative sites were noted to be hemostatic. The trochars were removed under direct visualization without complication and pneumoperitoneum was reduced. At this point the skin was then closed using 4-0 Monocryl subcuticular stitch and sealed with surgical glue. The patient tolerated the procedure well sponge lap and needle counts were correct x2 the patient was taken to the recovery room in stable condition. Surgical Findings: Dense adhesions of the bladder flap, fine omental adhesions to the anterior abdominal wall, cervical mass or fibroid. Complications Complications: No Admit VTE Documentation VTE Present on Admission: No VTE Mechan Device Prophylaxis: SCD's VTE Pharm Prophylaxis ordered?: No
--- NOTE | 2024-07-16 10:09 | PCM.POST.ANE ---
Anesthesia: Postop Eval I Current Vital Signs Temperature: 97.9 F Pulse Rate: 78 Blood Pressure: 138/77 Respiratory Rate: 16 Pulse Ox: 100 Oxygen Delivery Method: Simple Mask Oxygen Flow Rate (L/min): 6 Assessment Airway patent: Yes Spontaneous unlabored respirations: Yes Mental status: Awake and Calm nausea: No Vomiting: No Anesthesia Complication: No Fluid Hydration Crystalloid volume administer (ml): 1,000 Total IV fluid infused: 1,000 Progress Note Anesthesia document: Postop Eval 1 completed: Yes
--- NOTE | 2024-07-16 10:43 | POSTOPAN2_ITS ---
Anesthesia Postop Eval I Sum Postop Eval Completion status Anesthesia document: Postop Eval 1 completed: Yes Anesthesia Postop Eval I Summary Anesthesia Postop Eval I Summary: Anesthesia Postop Eval I: Assessment Summary Airway patent Yes 07/16/24 10:11 [email or web address] [email or web address] Spontaneous unlabored Yes 07/16/24 10:11 FLATBED [email or web address] respirations Mental status Awake,Calm 07/16/24 10:11 FLATBED [email or web address] nausea No 07/16/24 10:11 FLATBED [email or web address] Vomiting No 07/16/24 10:11 FLATBED [email or web address] Anesthesia Postop Eval I: Fluid Summary Crystalloid volume administer 1,000 07/16/24 10:11 FLATBED [email or web address] (ml) Colloids volume administered ( ml) Blood Product volume administered (ml) Total IV fluid infused 1,000 07/16/24 10:11 FLATBED [email or web address] Anesthesia Postop Eval I: Summary Notes Anesthesia Complication No 07/16/24 10:11 FLATBED [email or web address] Anesthesia Complication Comment: Post-operative progress note Anesthesia: Postop Eval II Evaluation Mental status: Awake and Calm Pain Level: 2 nausea: No Vomiting: No Complications Anesthesia Complication: No
--- NOTE | 2024-07-16 10:43 | PCM.POSTANE2 ---
Anesthesia Postop Eval I Sum Postop Eval Completion status Anesthesia document: Postop Eval 1 completed: Yes Anesthesia Postop Eval I Summary Anesthesia Postop Eval I Summary: Anesthesia Postop Eval I: Assessment Summary Airway patent Yes 07/16/24 10:11 [email or web address] [email or web address] Spontaneous unlabored Yes 07/16/24 10:11 JOY OPERATOR.[email or web address] respirations Mental status Awake,Calm 07/16/24 10:11 JOY OPERATOR.[email or web address] nausea No 07/16/24 10:11 JOY OPERATOR.[email or web address] Vomiting No 07/16/24 10:11 JOY OPERATOR.[email or web address] Anesthesia Postop Eval I: Fluid Summary Crystalloid volume administer 1,000 07/16/24 10:11 JOY [email or web address] (ml) Colloids volume administered ( ml) Blood Product volume administered (ml) Total IV fluid infused 1,000 07/16/24 10:11 JOY OPERATOR.[email or web address] Anesthesia Postop Eval I: Summary Notes Anesthesia Complication No 07/16/24 10:11 JOY [email or web address].[email or web address] Anesthesia Complication Comment: Post-operative progress note Anesthesia: Postop Eval II Evaluation Mental status: Awake and Calm Pain Level: 2 nausea: No Vomiting: No Complications Anesthesia Complication: No
== END 2024-07-16 13:28 | disposition home or self-care (01) ==
LOC: SDC 05:29 → AC 05:30
PROVIDERS: Anesthesiology; PCP Physician Assistant; Referring Provider Obstetrics & Gynecology; Visit Provider Obstetrics & Gynecology
PROC: 0UT90ZZ Resection of Uterus, Open Approach (ICD-10-PCS; CPT 58571; principal; 2024-07-16 07:10)
DX: C53.0 Malignant neoplasm of endocervix (principal); N93.9 Abnormal uterine and vaginal bleeding, unspecified; N99.85 Post endometrial ablation syndrome; D25.1 Intramural leiomyoma of uterus; E07.9 Disorder of thyroid, unspecified; F32.A Depression, unspecified; Z79.890 Hormone replacement therapy; Z79.899 Other long term (current) drug therapy
CPT/HCPCS: 58571; S2900; 00840; 81025; 83735; 84443; 85027; 86850; 86900; 86901; 88307; J2405; J3475

== ENCOUNTER 2024-07-21 14:37 | Emergency (ER) | payer OTHER, SELFPAY ==
[2024-07-21 14:37] VITALS: BP 124/84; PULSE 87; RESP 16; TEMP 37.1; O2SAT 100; BMI 34.4
--- NOTE | 2024-07-21 14:51 | CT_ITS ---
STUDY: CT Abdomen And Pelvis W/ Contrast Injection 07/21/2024 3:52 PM REASON FOR EXAM: Female, 49 years old. ABDOMINAL PAIN lower abdominal pain, R flank pain. S/P HYSTERECTOMY 6 DAYS AGO TECHNIQUE: Transaxial images were obtained without oral contrast, and IV 100mL Isovue-370 intravenous contrast. Individualized dose optimization techniques were used for this CT. COMPARISON: None FINDINGS: The visualized lung bases are unremarkable. The visualized portions of the heart are within normal limits. There is intrahepatic ductal dilation. There is hepatomegaly with diffuse hepatic enlargement. There are surgical clips in the gallbladder fossa consistent with a prior cholecystectomy. Unremarkable spleen. Unremarkable pancreas. Unremarkable bilateral adrenal glands. No acute findings of the right kidney. No acute findings of the left kidney. Unremarkable visualized stomach. Minimal prominence of the small bowel suggesting a postoperative ileus. Unremarkable colon. There is non-visualization of the appendix. There are no acute findings of the abdominal aorta. Unremarkable inferior vena cava. Subcentimeter mesenteric lymph nodes. Unremarkable urinary bladder. Inflammatory changes in the pelvis consistent for recent hysterectomy. No abscess formation. Mild inflammatory changes in the subcutaneous fat suggesting port placement size. There are diffuse degenerative changes of the visualized lumbar spine. There is bilateral neural foraminal stenosis at L4-5 and L5-S1. Vacuum disc phenomenon at L5-S1. CT/Abdomen/Pelvis W IV Cont ONLY IMPRESSION: (NOT LISTED IN ORDER OF SIGNIFICANCE) Recent postsurgical changes in the pelvis consistent for recent hysterectomy. Small bowel findings suggest a postoperative ileus. Developing obstruction cannot excluded. Hepatomegaly. Other findings as above. Electronically Signed: Eevrett Marion MD at 15:57 EST ,
[2024-07-21 15:03] LABS: Bacteria 0 SEEN /hpf (None Seen); Mucous, Urine 0 SEEN /hpf (<or=2+); Red Blood Cells-Urine 0 SEEN /hpf (0-5)
--- NOTE | 2024-07-21 15:03 | EDS_ITS ---
HPI <RONI Morales - Last Filed: 07/21/24 18:22> HPI - GI History of Present Illness Chief Complaint: Flank Pain Narrative Narrative: Patient presenting today with lower abdominal pain and right sided flank pain she has had over the past 2 days. She had a hysterectomy performed by Dr. Hussein due to abnormal vaginal bleeding on 07/16/2024. She reports that she has been doing well since the surgery up until 2 days ago when she began having pain. Previous abdominal surgeries include hysterectomy, cholecystectomy, and four previous C-sections. She denies any history of kidney stones. She had a temperature of 99.8 ?F last night. She suspected that she had a UTI and went to urgent care prior to arrival, they tested her urine and it was negative for UTI, prompting her to be sent in here. She has been having normal bowel movements and denies diarrhea, melena, hematochezia, hematuria, and vomiting. [facility] <RONI Morales - Last Filed: 07/21/24 18:22> [facility] Medical History Depression PONV (postoperative nausea and vomiting) Wears glasses Wears dentures Thyroid disease Arthritis Anemia Restless legs Syncope History of IBS Non-smoker History of edema History of rheumatic fever Home Medications ?Medication ?Instructions ?Recorded ?Last Taken ?Type cholecalciferol (vitamin D3) 50 50 mcg PO DAILY 11/05/21 Unknown History mcg (2,000 unit) capsule (Vitamin D3) vitamin A 2,400 mcg capsule 2,400 mcg PO DAILY 11/05/21 Unknown History escitalopram oxalate 20 mg tablet 20 mg PO QDAY 04/18/24 07/16/24 04:30 History (Lexapro) levothyroxine 25 mcg capsule 25 mcg PO QDAY 06/17/24 07/16/24 04:30 History FACTOR 5 07/02/24 07/07/24 History ibuprofen 800 mg tablet 800 mg PO Q8H PRN pain #30 tabs 07/16/24 Unknown Rx ondansetron HCl 4 mg tablet 4 mg PO Q6H PRN nausea and 07/16/24 Unknown Rx vomiting #20 tabs oxycodone-acetaminophen 5 mg-325 1 tab PO Q4H PRN pain 7 days #30 07/16/24 Unknown Rx mg tablet (Percocet) tabs Allergy/AdvReac Type Severity Reaction Status Date / Time codeine Allergy Mild Nausea Verified 07/21/24 14:39 adhesive tape (surgical tape) Allergy Rash Verified 07/21/24 14:39 Family History Father Cancer Throat Surgical History S/P endometrial ablation History of mandibular surgery S/P knee surgery History of back surgery Hx laparoscopic cholecystectomy History of Social History household members: spouse current occupational status: unemployed Smoking Status: Never smoker alcohol intake: never substance use type: does not use seatbelt use: always do you feel safe at home: Yes additional social history: - Stephen GILLETTE <RONI Morales - Last Filed: 07/21/24 18:22> ROS ED Constitutional Constitutional ED: Reports fever(s) and subjective; Denies chills Cardiovascular Cardiovascular: Denies chest pain Respiratory/Chest Respiratory/Chest: Denies dyspnea Gastrointestinal Gastrointestinal: Reports abdominal pain; Denies constipation, diarrhea, melena, nausea or vomiting Genitourinary Genitourinary ED: Reports urinary frequency and urinary urgency; Denies dysuria or hematuria Musculoskeletal Musculoskeletal: Reports other Details: R flank pain Integumentary Denies rash Neurologic Neurologic: Denies weakness EXAM <RONI Morales - Last Filed: 07/21/24 18:22> Physical Exam Const Vital Signs: 07/21/24 14:37 07/21/24 16:37 07/21/24 16:37 Temperature 98.8 F 97.9 F Temperature Source Oral Pulse Rate 87 71 71 Respiratory Rate 16 18 Blood Pressure 124/84 H 116/69 116/69 Blood Pressure Mean 97 84 84 Pulse Ox 100 100 Oxygen Delivery Method Room Air Positive well nourished, well developed and no apparent distress General Appearance ED: well developed HEENT Reports normocephalic and head/scalp atraumatic Mouth ED: Yes moist mucous membranes normal Eyes PERRL and EOMs intact bilaterally Neck full ROM and supple Chest Wall inspection of chest normal Resp normal respiratory effort and clear to auscultation bilaterally Cardio regular rate and regular rhythm GI soft to palpation, non-distended and no masses GI Narrative: Lower abdominal tenderness to palpation without rigidity or guarding. Four laparoscopic surgical incisions with bandage, no surrounding erythema. Back/Spine normal ROM and normal to inspection General Back: CVA tenderness right Extremity normal to inspection and full ROM Neuro oriented x3, CN's II-XII intact bilaterally, moves all extremities, no focal motor deficits and no sensory deficits noted Sensorium / Orientation: awake and alert Psych mental status grossly normal and thought process normal Skin no rashes or lesions noted and no wounds <Dr. Joés Bhatti MD - Last Filed: 07/21/24 16:30> Physical Exam Const Vital Signs: 07/21/24 14:37 07/21/24 16:37 07/21/24 16:37 Temperature 98.8 F 97.9 F Temperature Source Oral Pulse Rate 87 71 71 Respiratory Rate 16 18 Blood Pressure 124/84 H 116/69 116/69 Blood Pressure Mean 97 84 84 Pulse Ox 100 100 Oxygen Delivery Method Room Air [facility] <RONI Morales - Last Filed: 07/21/24 18:22> [facility] Narrative Medical decision making narrative: Patient presenting today with lower abdominal cramping and right-sided flank pain she has had over the last 2 days. She had a laparoscopic hysterectomy performed on Monday, no postop complications and has been doing well up until 2 days ago. She is nontoxic-appearing and in no acute distress. Labs will be obtained as well as a CT scan of the abdomen and pelvis to assess for kidney stones, pyelonephritis, bowel obstruction, appendicitis, postoperative complication. She has a slight leukocytosis at 13.3, slight increase in her transaminases. CT scan shows postoperative changes, small bowel findings suggestive postop ileus, however she has normal bowel sounds and has been having normal bowel movements. She also has no nausea or vomiting, low suspicion for ileus/obstruction. Given her urinary symptoms, urinary culture was sent. The attending did speak with on-call OB [place] nurse manufacturing maintenance manager who recommended ruling out urinary retention, this was ruled out. She reports that she does have medicine at home that she can take for her pain as needed. She is to follow-up with her health insurance assessor and will be discharged in stable addition. Lab Data Attestation: I reviewed the patient's lab results. Lab results narrative: WBC 13.3, hemoglobin 11.9, AST 95, ALT 73, alkaline phosphatase 236 Labs: Laboratory Results - last 24 hr 07/21/24 14:58 WBC 13.3 H RBC 4.25 Hgb 11.9 L Hct 36.9 L MCV 86.8 MCH 28.0 MCHC 32.2 RDW Std Deviation 38.6 RDW Coeff of Willie 12.1 Plt Count 247 MPV 9.2 Immature Gran % (Auto) 0.500 Neut % (Auto) 80.0 H Lymph % (Auto) 10.2 L [place] % (Auto) 7.2 Eos % (Auto) 1.9 Baso % (Auto) 0.2 Absolute Neuts (auto) 10.6 H Absolute Lymphs (auto) 1.35 Nucleated RBC % 0 Sodium 137 Potassium 3.8 Chloride 104 Carbon Dioxide 27.0 Anion Gap 6 BUN 15 Creatinine 0.73 Estim Creat Clear Calc 96.04 Est GFR (MDRD) Af Amer 108 Est GFR (MDRD) Non-Af 90 BUN/Creatinine Ratio 20.6 H Glucose 97 Calcium 8.9 Total Bilirubin 0.60 AST 95 H ALT 73 H Alkaline Phosphatase 236 H Total Protein 7.1 Albumin 3.2 Globulin 3.9 Albumin/Globulin Ratio 0.8 L Lipase 13 Urine Color Yellow Urine Clarity Clear Urine pH 5.0 Ur Specific [place] 1.020 Urine Protein 30 H Urine Glucose (UA) Normal Urine Ketones 5 H Urine Occult Blood 10 H Urine Nitrite Negative Urine Bilirubin Negative Urine Urobilinogen Normal Ur Leukocyte Esterase 25 H Urine RBC 0 SEEN Urine WBC 0-5 SEEN Ur Squamous Epith Cells 0-5 SEEN Urine Bacteria 0 SEEN Urine Mucus 0 SEEN Radiography Diagnostic Testing: Clinical Impression(s) from Imaging Studies Abdomen/Pelvis CT 07/21/24 14:51 IMPRESSION: (NOT LISTED IN ORDER OF SIGNIFICANCE) Recent postsurgical changes in the pelvis consistent for recent hysterectomy. Small bowel findings suggest a postoperative ileus. Developing obstruction cannot excluded. Hepatomegaly. Other findings as above. Electronically Signed: Everett Marion MD at 15:57 EST , <Dr. José Bhatti MD - Last Filed: 07/21/24 16:30> [facility] Lab Data Labs: Laboratory Results - last 24 hr 07/21/24 14:58 WBC 13.3 H RBC 4.25 Hgb 11.9 L Hct 36.9 L MCV 86.8 MCH 28.0 MCHC 32.2 RDW Std Deviation 38.6 RDW Coeff of Willie 12.1 Plt Count 247 MPV 9.2 Immature Gran % (Auto) 0.500 Neut % (Auto) 80.0 H Lymph % (Auto) 10.2 L [place] % (Auto) 7.2 Eos % (Auto) 1.9 Baso % (Auto) 0.2 Absolute Neuts (auto) 10.6 H Absolute Lymphs (auto) 1.35 Nucleated RBC % 0 Sodium 137 Potassium 3.8 Chloride 104 Carbon Dioxide 27.0 Anion Gap 6 BUN 15 Creatinine 0.73 Estim Creat Clear Calc 96.04 Est GFR (MDRD) Af Amer 108 Est GFR (MDRD) Non-Af 90 BUN/Creatinine Ratio 20.6 H Glucose 97 Calcium 8.9 Total Bilirubin 0.60 AST 95 H ALT 73 H Alkaline Phosphatase 236 H Total Protein 7.1 Albumin 3.2 Globulin 3.9 Albumin/Globulin Ratio 0.8 L Lipase 13 Urine Color Yellow Urine Clarity Clear Urine pH 5.0 Ur Specific [place] 1.020 Urine Protein 30 H Urine Glucose (UA) Normal Urine Ketones 5 H Urine Occult Blood 10 H Urine Nitrite Negative Urine Bilirubin Negative Urine Urobilinogen Normal Ur Leukocyte Esterase 25 H Urine RBC 0 SEEN Urine WBC 0-5 SEEN Ur Squamous Epith Cells 0-5 SEEN Urine Bacteria 0 SEEN Urine Mucus 0 SEEN Radiography Diagnostic Testing: Clinical Impression(s) from Imaging Studies Abdomen/Pelvis CT 07/21/24 14:51 IMPRESSION: (NOT LISTED IN ORDER OF SIGNIFICANCE) Recent postsurgical changes in the pelvis consistent for recent hysterectomy. Small bowel findings suggest a postoperative ileus. Developing obstruction cannot excluded. Hepatomegaly. Other findings as above. Electronically Signed: Everett Marion MD at 15:57 EST , Treatment and Re-Evaluation Comments:: I have personally performed a face to face assessment of the patient and have reviewed the OTDD Note. I performed a substantive portion of the visit including all aspects of the following. My salazar findings include: History is hysterectomy less than 1 week ago, gradual onset over the last day or 2 of lower abdominal discomfort with urinary symptoms that she has had with infections in the past, she had urgency, hesitancy, frequency; developed right flank pain today no nausea, vomiting, she has had a low-grade fever. Exam is well-appearing no distress, mild lower abdominal tenderness without guarding or rebound. Mild subjective right CVA tenderness. No rash. Medical Decison Making differential includes postoperative complication, bladder infection, early pyelonephritis, obstructive uropathy. Lab work, urine, CT obtained. Her urine does not appear to be infected arguing against pyelonephritis, she does have a mild leukocytosis. CT obtained with contrast to evaluate for the possibility of postoperative complication. I reviewed the images and the report which I mostly agree with; the patient does not have an early obstruction or an ileus, she has normal bowel sounds no nausea or vomiting and is eating normally and having bowel movements. A postoperative abscess was not seen, just postoperative changes. I discussed this with nurse manufacturing maintenance manager on for the DIRECTOR COMMUNICATIONS group, she advises ruling out urinary retention. The patient had a postvoid residual of 47 cc ruling that out. At this time I do not see any antibiotics that are indicated, but we are going to send her urine for culture given her symptoms and history of urinary infections and have her follow-up after the weekend with her DIRECTOR COMMUNICATIONS. Other additions or changes: [None] Discharge Plan Triage Chief Complaint: Flank Pain ED Midlevel Provider: Lo Evans ED Provider: José Bhatti Dx/Rx/DC Orders Clinical Impression: Abdominal pain, S/P hysterectomy, Urinary urgency, Right flank pain Instructions: Abdominal Pain Prescriptions: No Action escitalopram oxalate [Lexapro] 20 mg tablet 20 mg PO QDAY levothyroxine 25 mcg capsule 25 mcg PO QDAY vitamin A 2,400 mcg Capsule 2,400 mcg PO DAILY cholecalciferol (vitamin D3) [Vitamin D3] 50 mcg (2,000 unit) Capsule 50 mcg PO DAILY FACTOR 5 ibuprofen 800 mg tablet 800 mg PO Q8H PRN (Reason: pain) Qty: 30 0RF ondansetron HCl 4 mg tablet 4 mg PO Q6H PRN (Reason: nausea and vomiting) Qty: 20 0RF oxycodone-acetaminophen [Percocet] 5-325 mg tablet 1 tab PO Q4H PRN (Reason: pain) 7 Days Qty: 30 0RF Rx Instructions: 1-2 tabs q 4 hrs as needed for pain Primary Care Provider: Claudette Alexandra Referrals: Claudette Alexandra PA [Primary Care Provider] - Activity Restrictions/Additional Instructions: Follow-up with your health insurance assessor and return for any worsening symptoms. Print Language: Grenadian Disposition Disposition: Home, Self Care Discharge Date/Time: 07/21/24 16:38
[2024-07-21 15:05] LABS: Absolute Lymphocyte Count 1.35 X10^3/uL (0.83-4.51); Absolute Neutrophil Count 10.6 X10^3/uL (2.0-7.7); Basophil# 0.03 X10^3/uL; Basophil% 0.2 % (0-1); Eosinophil# 0.25 X10^3/uL; Eosinophils% 1.9 % (0-5); Hematocrit 36.9 % (37-47); Hemoglobin 11.9 g/dL (12.0-15.0); Lymphocyte # 1.35 X10^3/ul (0.83-4.51); Lymphocyte % 10.2 % (19-41); Mean Corp Hgb Conc 32.2 g/dL (32-36); Mean Corpuscular Volume 86.8 fL (81-99); Mean Platelet Vol. 9.2 fl (6.2-12.0); Monocyte# 0.96 X10^3/uL; Monocyte% 7.2 % (0-10); NRBC Flagged by Analyzer 0 % (0-5); Neutrophil # 10.63 X10^3/uL (2.7-7.7); Platelet Count 247 K/mm3 (150-450); RBC Distribution Width CV 12.1 % (11.6-14.6); RBC Distribution Width SD 38.6 fl (35.1-43.9); Red Blood Count 4.25 M/mm3 (4.2-5.4); White Blood Count 13.3 K/mm3 (4.4-11.0)
[2024-07-21] MEDS: Ketorolac 15 MG/ML Vial IV (15:05)
[2024-07-21 15:06] LABS: Color, Urine Yellow (Yellow); Glucose, Dipstick Normal (Normal); Ketone-Dipstick 5 mg/dl (Negative); Leukocyte Esterase-Dipstick 25 /ul (Negative); Nitrite-Dipstick Negative (Negative); Occult Blood-Urine 10 /ul (Negative); Protein-Dipstick 30 mg/dl (Negative); Urine Bilirubin Dipstick Negative (Negative); Urine Clarity Clear (Clear); Urine Urobilinogen Normal (Normal)
[2024-07-21 15:11] LABS: Squamous Epithelial Cells - UA 0-5 SEEN /hpf (5-10); White Blood Cells 0-5 SEEN /hpf (0-5)
[2024-07-21 15:21] LABS: ALB/GLOB Ratio 0.8 RATIO (0.9-2.4); AST(SGOT) 95 U/L (15-37); Alanine Aminotransfer ALT/SGPT 73 U/L (13-56); Albumin, Serum 3.2 g/dL (3.2-5.0); Alkaline Phosphatase 236 U/L (45-117); Anion Gap 6 (5-15); BUN 15 mg/dL (7-18); BUN/Creat Ratio 20.6 RATIO (10-20); Calcium,Total 8.9 mg/dL (8.5-10.1); Chloride 104 mmol/L (98-107); Creatinine, Serum 0.73 mg/dL (0.55-1.02); EST Glomerular Filtration Rate 90 mL/min (>60); Est Glom Filt Rate - Afr Amer 108 mL/min (>60); Estimated Creatinine Clearance 96.04 ml/min; Globulin 3.9 g/dL (2.2-4.2); Glucose 97 mg/dL (74-106); Lipase 13 U/L (13-75); Potassium 3.8 mmol/L (3.5-5.1); Protein, Total 7.1 g/dL (6.4-8.2); Sodium Level 137 mmol/L (136-145)
[2024-07-21 16:37] VITALS: BP 116/69; PULSE 71; RESP 18; TEMP 36.6; O2SAT 100
== END 2024-07-21 16:38 | disposition home or self-care (01) ==
PROVIDERS: Physician Assistant; Emergency Provider Emergency Medicine; PCP Physician Assistant; Visit Provider Emergency Medicine
DX: R10.9 Unspecified abdominal pain (principal); R39.15 Urgency of urination; Z90.710 Acquired absence of both cervix and uterus
CPT/HCPCS: 74177; 80053; 81001; 83690; 85025; 96374; 99282; Q9967; A4216

== ENCOUNTER 2024-07-23 12:05 | Emergency (ER) | payer OTHER, SELFPAY ==
[2024-07-23 12:05] VITALS: BP 134/91; PULSE 80; RESP 16; TEMP 36.7; O2SAT 100; BMI 34.3
--- NOTE | 2024-07-23 12:49 | CT_ITS ---
STUDY: CT ABDOMEN AND PELVIS WITH CONTRAST REASON FOR EXAM: Female, 49 years old. Right-sided abdominal pain after hysterectomy one week ago. RADIATION DOSAGE (If Supplied By Facility): CTDIvol = ( 14.80 ) mGy, DLP = ( 1032.99 ) mGycm TECHNIQUE: Transaxial images were obtained from the dome of the diaphragm to the symphysis pubis without oral contrast. IV 100mL Isovue-370 was administered. Sagittal and coronal images were reconstructed. Individualized dose optimization techniques were used for this CT. COMPARISON: Comparison is made with prior study dated July 21, 2024. FINDINGS: The visualized lung bases are unremarkable. The visualized portions of the heart are within normal limits. Stable mild degree of central intrahepatic biliary ductal dilatation. Borderline hepatomegaly. There are surgical clips in the gallbladder fossa consistent with a prior cholecystectomy. Normal spleen. Normal pancreas. Normal bilateral adrenal glands. Normal right kidney. Normal left kidney. There is a small hiatal hernia. Normal small intestine. Normal colon. The appendix is visualized and appears normal. Normal abdominal aorta. Normal inferior vena cava. Normal retroperitoneum. Normal urinary bladder. The patient is status post hysterectomy. Postoperative changes are seen at the operative site. There has been improvement as compared to prior study. Less bowel dilatation at this time. Normal abdominal wall. There are degenerative changes of the visualized lumbar spine. CT/Abdomen/Pelvis W IV Cont ONLY IMPRESSION: Status post recent hysterectomy with postoperative changes in the pelvis. There has been improvement as compared to prior study. Electronically Signed: Jack Dinh MD at 15:11 EST ,
--- NOTE | 2024-07-23 12:50 | EDS_ITS ---
HPI HPI - GI History of Present Illness Chief Complaint: Abd Pain Informant: patient Abdominal Pain/Flank Pain Onset: Days Context: Gradual Onset Timing: Intermittent Quality: Dull Location: RUQ and RLQ Current Severity: Mild Maximum Severity: Mild Worsened by: Nothing Relieved by: Nothing Nausea/Vomiting/Emesis GI Symptom: Negative for Nausea or Vomiting Diarrhea/Melena/Hematochezia GI Symptom: Negative for Diarrhea, Melena or Hematochezia Associated Symptoms Associated Symptoms: Positive for Dysuria; Negative for Frequency, Hematuria or Urgency Narrative Narrative: 49-year-old female history of IBS prior cholecystectomy, prior C-sections x 4 and a recent hysterectomy on July 16. She will last for scopic hysterectomy done by Dr. Amada Costa. Patient states she is not having right sided abdominal pain with a low-grade fevers high as 100. Pains been going on for days. The fever started on Monday. Mild dysuria. She was seen in the emergency department had a recent workup including a CAT scan which was unremarkable. She called the office today and they wonder come in to have a repeat evaluation to ensure that she has not developed a postop infection. Prior similar symptoms: Yes Recent Illness/Hospitalization: No PFSH PFSH Medical History Depression PONV (postoperative nausea and vomiting) Wears glasses Wears dentures Thyroid disease Arthritis Anemia Restless legs Syncope History of IBS Non-smoker History of edema History of rheumatic fever Home Medications ?Medication ?Instructions ?Recorded ?Last Taken ?Type cholecalciferol (vitamin D3) 50 50 mcg PO DAILY 11/05/21 Unknown History mcg (2,000 unit) capsule (Vitamin D3) vitamin A 2,400 mcg capsule 2,400 mcg PO DAILY 11/05/21 Unknown History escitalopram oxalate 20 mg tablet 20 mg PO QDAY 04/18/24 07/16/24 04:30 History (Lexapro) levothyroxine 25 mcg capsule 25 mcg PO QDAY 06/17/24 07/16/24 04:30 History FACTOR 5 07/02/24 07/07/24 History ibuprofen 800 mg tablet 800 mg PO Q8H PRN pain #30 tabs 07/16/24 Unknown Rx ondansetron HCl 4 mg tablet 4 mg PO Q6H PRN nausea and 07/16/24 Unknown Rx vomiting #20 tabs oxycodone-acetaminophen 5 mg-325 1 tab PO Q4H PRN pain 7 days #30 07/16/24 U nknown Rx mg tablet (Percocet) tabs oxycodone 10 mg tablet 10 mg PO Q6H PRN pain 7 days #28 07/23/24 Unknown Rx tabs Allergy/AdvReac Type Severity Reaction Status Date / Time codeine Allergy Mild Nausea Verified 07/21/24 14:39 adhesive tape (surgical tape) Allergy Rash Verified 07/21/24 14:39 Family History Father Cancer Throat Surgical History S/P endometrial ablation History of mandibular surgery S/P knee surgery History of back surgery Hx laparoscopic cholecystectomy History of Social History household members: spouse current occupational status: unemployed Smoking Status: Never smoker alcohol intake: never substance use type: does not use seatbelt use: always do you feel safe at home: Yes additional social history: - Stephen Kirby ROS ROS ED ROS Narrative Right-sided abdominal pain. Low-grade fever of 100. Constitutional Constitutional ED: Reports fever(s); Denies chills ENT ENT ED: Denies ear pain Cardiovascular Cardiovascular: Denies chest pain Respiratory/Chest Respiratory/Chest: Denies cough Gastrointestinal Gastrointestinal: Reports abdominal pain; Denies constipation, diarrhea, melena, nausea or vomiting Genitourinary Genitourinary ED: Reports dysuria Musculoskeletal Musculoskeletal: Denies arthralgias Integumentary Denies abscess Neurologic Neurologic: Denies headache(s) Psychiatric Psychiatric: Denies anxiety Endocrine Endocrinology: Denies polydipsia Hematologic/Lymphatic Hematologic/Lymphatic: Denies easy bleeding Allergic/Immunologic Allergic/Immunologic ED: Denies mouth swelling, tongue swelling or urticaria EXAM Physical Exam Narrative Exam Narrative: Well-appearing 49-year-old female. Vital signs are stable afebrile. Temperature 98.1. She does not look septic tenderness or any distress. H EENT exam pupils round reactive light. Moist mucous members. Neck nontender no lymphadenopathy. Lungs clear to auscultation bilaterally. Heart regular rate and rhythm rate about 80. No murmur. Chest wall ribs nontender. Abdomen soft, nondistended normal bowel sounds without peritoneal signs. Mild right upper and right lower quadrant tenderness. No peritoneal signs. No specific McBurney's point tenderness. Well-healing laparoscopic incisions from her recent hysterectomy. Back nontender. Moving all 4 extremities. Nontender no edema. No cords. She is awake alert. Answering questions following commands. Const Vital Signs: 07/23/24 12:05 07/23/24 14:05 Temperature 98.1 F 98.4 F Temperature Source Temporal Oral Pulse Rate 80 89 Respiratory Rate 16 18 Blood Pressure 134/91 H 116/95 H Blood Pressure Mean 105 102 Pulse Ox 100 100 Oxygen Delivery Method Room Air Room Air Positive well nourished and well developed; Negative for cachectic, contractures or unkempt General Appearance ED: well developed and NAD; Negative for unkempt, cachectic, contractures or pallor Nutritional Appearance: Negative for cachectic HEENT Reports moist mucous membranes normocephalic and atraumatic; Negative for trauma or tenderness Eyes PERRL and EOMs intact bilaterally General Eye ED: Negative for pale conjunctiva or scleral icterus Neck no lymphadenopathy, supple and no JVD General: Negative for tenderness Carotids: Negative for other Resp normal respiratory effort and clear to auscultation bilaterally Effort and Inspection: Negative for respiratory distress Auscultation: Negative for rales, rhonchi or wheezes Cardio regular rate, regular rhythm, S1 normal heart sound, S2 normal heart sound and no murmurs Rate: Negative for bradycardia or tachycardic Rhythm: Negative for abnormal rhythm GI non-distended and no masses; Negative for non-tender GI Narrative: Right upper and lower quadrant mild tenderness. No peritoneal signs. Auscultation: normoactive bowel sounds Palpation: soft and tender; Negative for guarding, rigid, hepatomegaly, hernia, pulsatile mass or rebound tenderness present Back/Spine no CVA tenderness Extremity full ROM General Extremety ED: Negative for edema or tenderness General Extremity: Negative for edema Neuro CN's II-XII intact bilaterally and moves all extremities Sensorium / Orientation: alert, oriented to person, oriented to place and oriented to time; Negative for orientation impaired, confused, lethargic or stuporous Motor Exam: strength 5/5 throughout Psych mental status grossly normal and thought process normal Appearance: Negative for unkempt Attitude: No agitated Mood & Affect: Negative for depressed, anxious or tearful Skin no wounds General Skin Exam: Negative for jaundice or pallor Lesions: no lesions Rashes: no rashes Trauma: Negative for abrasion Nails: Negative for discolored MDM MDM MDM Narrative Medical decision making narrative: 49-year-old female with abdominal pain and low-grade fevers since hysterectomy 7 days ago. CAT scan labs to be obtained. I reviewed her most recent workup that was unremarkable she is slightly elevated white count of 13. CAT scan was unremarkable. Repeat exam patient is doing well at 3:40 PM. Repeat abdominal exam is benign. Vital signs are stable. Abdomen is nondistended. She has no reproducible back or flank pain. She and I went over all of her test results. She will be discharged home. Continue her current pain medication and Motrin. I have her MYSQL DATABASE ADMINISTRATOR on page. History & Record Review Discussion w/independent historian: Patient and Family Additional record(s) reviewed:: Prior inpatient record, Prior outpatient record, Prior ED visit and Prior labs Lab Data Attestation: I reviewed the patient's lab results. Lab results narrative: CBC shows white count 13. H&H 12.8 and 38. Platelets 309. Electrolytes show gap 4. Normal BUN 10 and creatinine 0.7. Glucose 92. Liver enzymes show an ALT of 103 and an alk phos of 432. Urinalysis is normal. No nitrates. No white or red cells. No bacteria. Labs: Laboratory Results - last 24 hr 07/23/24 07/23/24 13:15 13:20 WBC 13.0 H RBC 4.44 Hgb 12.8 Hct 38.7 MCV 87.2 MCH 28.8 MCHC 33.1 RDW Std Deviation 39.9 RDW Coeff of Willie 12.5 Plt Count 309 MPV 9.3 Immature Gran % (Auto) 1.000 H Neut % (Auto) 80.0 H Lymph % (Auto) 10.7 L Andrew % (Auto) 5.8 Eos % (Auto) 2.0 Baso % (Auto) 0.5 Absolute Neuts (auto) 10.4 H Absolute Lymphs (auto) 1.39 Nucleated RBC % 0 Sodium 138 Potassium 3.8 Chloride 106 Carbon Dioxide 28.0 Anion Gap 4 L BUN 10 Creatinine 0.71 Estim Creat Clear Calc 98.59 Est GFR (MDRD) Af Amer 111 Est GFR (MDRD) Non-Af 92 BUN/Creatinine Ratio 14.0 Glucose 92 Calcium 9.3 Total Bilirubin 0.30 AST 85 H ALT 103 H Alkaline Phosphatase 432 H Total Protein 8.0 Albumin 3.3 Globulin 4.7 H Albumin/Globulin Ratio 0.7 L Urine Color Yellow Urine Clarity Clear Urine pH 7.0 Ur Specific [place] 1.010 Urine Protein Negative Urine Glucose (UA) Normal Urine Ketones Negative Urine Occult Blood Negative Urine Nitrite Negative Urine Bilirubin Negative Urine Urobilinogen Normal Ur Leukocyte Esterase Negative Urine RBC 0 SEEN Urine WBC 0 SEEN Ur Squamous Epith Cells 0 SEEN Urine Bacteria 0 SEEN Urine Mucus 0 SEEN Radiography Diagnostic Testing: Clinical Impression(s) from Imaging Studies Abdomen/Pelvis CT 07/23/24 12:49 IMPRESSION: Status post recent hysterectomy with postoperative changes in the pelvis. There has been improvement as compared to prior study. Electronically Signed: Jack Dinh MD at 15:11 EST , Discharge Plan Triage Chief Complaint: Abd Pain ED Provider: Philip eMlton Dx/Rx/DC Orders Clinical Impression: Abdominal pain, Status post abdominal hysterectomy Instructions: ED Abdominal Pain Unkn Cause Fem Prescriptions: No Action escitalopram oxalate [Lexapro] 20 mg tablet 20 mg PO QDAY levothyroxine 25 mcg capsule 25 mcg PO QDAY vitamin A 2,400 mcg Capsule 2,400 mcg PO DAILY cholecalciferol (vitamin D3) [Vitamin D3] 50 mcg (2,000 unit) Capsule 50 mcg PO DAILY FACTOR 5 ibuprofen 800 mg tablet 800 mg PO Q8H PRN (Reason: pain) Qty: 30 0RF ondansetron HCl 4 mg tablet 4 mg PO Q6H PRN (Reason: nausea and vomiting) Qty: 20 0RF oxycodone-acetaminophen [Percocet] 5-325 mg tablet 1 tab PO Q4H PRN (Reason: pain) 7 Days Qty: 30 0RF Rx Instructions: 1-2 tabs q 4 hrs as needed for pain oxycodone 10 mg tablet 10 mg PO Q6H PRN (Reason: pain) 7 Days Qty: 28 0RF Primary Care Provider: Claudette Alexandra Referrals: Amada Swartz DO [Med Staff - Active Staff] - Keep [facility] appointment Claudette Alexandra, PA [Primary Care Provider] - Activity Restrictions/Additional Instructions: Your labs and CAT scan today look good. No signs of any infection or urinary tr act infection. Continue your pain medication and you can also use Motrin for pain. Follow-up with your MYSQL DATABASE ADMINISTRATOR Dr. Amada Costa with your scheduled appointment. Print Language: Gabonese Disposition Disposition: Home, Self Care
[2024-07-23] MEDS: Ondansetron 4 MG/2 ML Vial IV (13:24)
[2024-07-23] MEDS: Morphine 4 MG/ML Syringe IV (13:24)
[2024-07-23 13:36] LABS: Bacteria 0 SEEN /hpf (None Seen); Mucous, Urine 0 SEEN /hpf (<or=2+); Red Blood Cells-Urine 0 SEEN /hpf (0-5); Squamous Epithelial Cells - UA 0 SEEN /hpf (5-10); White Blood Cells 0 SEEN /hpf (0-5)
[2024-07-23 13:40] LABS: Color, Urine Yellow (Yellow); Glucose, Dipstick Normal (Normal); Ketone-Dipstick Negative (Negative); Leukocyte Esterase-Dipstick Negative /ul (Negative); Nitrite-Dipstick Negative (Negative); Occult Blood-Urine Negative /ul (Negative); Protein-Dipstick Negative (Negative); Urine Bilirubin Dipstick Negative (Negative); Urine Clarity Clear (Clear); Urine Urobilinogen Normal (Normal)
[2024-07-23 13:42] LABS: Absolute Lymphocyte Count 1.39 X10^3/uL (0.83-4.51); Absolute Neutrophil Count 10.4 X10^3/uL (2.0-7.7); Basophil# 0.07 X10^3/uL; Basophil% 0.5 % (0-1); Eosinophil# 0.26 X10^3/uL; Hematocrit 38.7 % (37-47); Hemoglobin 12.8 g/dL (12.0-15.0); Lymphocyte # 1.39 X10^3/ul (0.83-4.51); Lymphocyte % 10.7 % (19-41); Mean Corp Hgb Conc 33.1 g/dL (32-36); Mean Corpuscular Hgb 28.8 pg (27.0-32.0); Mean Corpuscular Volume 87.2 fL (81-99); Mean Platelet Vol. 9.3 fl (6.2-12.0); Monocyte# 0.76 X10^3/uL; Monocyte% 5.8 % (0-10); NRBC Flagged by Analyzer 0 % (0-5); Platelet Count 309 K/mm3 (150-450); RBC Distribution Width CV 12.5 % (11.6-14.6); RBC Distribution Width SD 39.9 fl (35.1-43.9); Red Blood Count 4.44 M/mm3 (4.2-5.4)
[2024-07-23 14:02] LABS: ALB/GLOB Ratio 0.7 RATIO (0.9-2.4); AST(SGOT) 85 U/L (15-37); Alanine Aminotransfer ALT/SGPT 103 U/L (13-56); Albumin, Serum 3.3 g/dL (3.2-5.0); Alkaline Phosphatase 432 U/L (45-117); Anion Gap 4 (5-15); BUN 10 mg/dL (7-18); Calcium,Total 9.3 mg/dL (8.5-10.1); Chloride 106 mmol/L (98-107); Creatinine, Serum 0.71 mg/dL (0.55-1.02); EST Glomerular Filtration Rate 92 mL/min (>60); Est Glom Filt Rate - Afr Amer 111 mL/min (>60); Estimated Creatinine Clearance 98.59 ml/min; Globulin 4.7 g/dL (2.2-4.2); Glucose 92 mg/dL (74-106); Potassium 3.8 mmol/L (3.5-5.1); Sodium Level 138 mmol/L (136-145)
[2024-07-23 14:05] VITALS: BP 116/95; PULSE 89; RESP 18; TEMP 36.9; O2SAT 100
[2024-07-23 15:49] VITALS: BP 118/72; PULSE 68; RESP 14; TEMP 37.2; O2SAT 97
== END 2024-07-23 15:51 | disposition home or self-care (01) ==
PROVIDERS: Emergency Provider Emergency Medicine; PCP Physician Assistant; Visit Provider Emergency Medicine
DX: R10.11 Right upper quadrant pain (principal)
CPT/HCPCS: 74177; 80053; 81001; 85025; 96374; 96375; 99283; Q9967; A4216; J2405

== ENCOUNTER 2024-07-25 20:37 | Inpatient (IN) | payer OTHER, SELFPAY ==
[2024-07-25 20:39] VITALS: BP 140/88; PULSE 113; RESP 20; TEMP 37.9; O2SAT 99
--- NOTE | 2024-07-25 20:42 | EX.ED.DYSGE1 ---
HPI History of Present Illness Chief Complaint: General Illness [facility] Medical History Depression PONV (postoperative nausea and vomiting) Wears glasses Wears dentures Thyroid disease Arthritis Anemia Restless legs Syncope History of IBS Non-smoker History of edema History of rheumatic fever Home Medications ?Medication ?Instructions ?Recorded ?Last Taken ?Type cholecalciferol (vitamin D3) 50 50 mcg PO DAILY bone 11/05/21 Unknown History mcg (2,000 unit) capsule (Vitamin D3) vitamin A 2,400 mcg capsule 2,400 mcg PO DAILY health 11/05/21 Unknown History escitalopram oxalate 20 mg tablet 20 mg PO QDAY anxiety 04/18/24 07/16/24 04:30 History (Lexapro) FACTOR 5 clotting 07/02/24 07/07/24 History oxycodone 10 mg tablet 10 mg PO Q6H PRN pain 7 days #28 07/23/24 Unknown Rx tabs ibuprofen 800 mg tablet 800 mg PO Q8H #30 tabs 07/25/24 Unknown Rx levothyroxine 50 mcg tablet 50 mcg PO DAILY thyroid 07/25/24 Unknown History Allergy/AdvReac Type Severity Reaction Status Date / Time codeine Allergy Mild Nausea Verified 07/25/24 20:39 adhesive tape (surgical tape) Allergy Rash Verified 07/25/24 20:39 Family History Father Cancer Throat Surgical History S/P endometrial ablation History of mandibular surgery S/P knee surgery History of back surgery Hx laparoscopic cholecystectomy History of Social History household members: spouse current occupational status: unemployed Smoking Status: Never smoker alcohol intake: never substance use type: does not use seatbelt use: always do you feel safe at home: Yes additional social history: - Stephen Kirby EXAM Physical Exam Const Vital Signs: 07/25/24 20:39 07/25/24 21:24 07/25/24 22:37 Temperature 100.2 F H 99.6 F H Temperature Source Oral Oral Pulse Rate 113 H 108 H Respiratory Rate 20 H 16 Respiratory Effort Normal Non-Labored Respiratory Pattern Normal Blood Pressure 140/88 H 131/68 H Blood Pressure Mean 105 89 Pulse Ox 99 97 Oxygen Delivery Method Room Air Room Air [facility] Narrative Medical decision making narrative: HISTORY OF PRESENT ILLNESS: 49-year-old female history of IBS, cholecystectomy, C-sections and recent hysterectomy presents with fever of unknown origin. No she has been having a fever since 07/20/2024. She notes she had hysterectomy done on 07/16/2024. She does she has been to the ED multiple times but there was not been a source of infection identified. She notes she has right-sided abdominal pain. She notes she also has a headache. She notes just before her operation she had a sinus infection. She denies cough or chills. REVIEW OF SYSTEMS: Pertinent positives: Fever, headache, abdominal pain, nausea Pertinent negatives: Vomiting, diarrhea, constipation, urinary complaints, cough, shortness of breath, skin changes PHYSICAL EXAM: Nursing triage notes reviewed, Vital signs reviewed Constitutional: please see mdm HENT: MMM Eyes: Pupils equal round and reactive to light, Extraocular muscles intact Neck: No stridor, no JVD, full neck ROM Lungs: Clear to auscultation, No wheezing or rales. No increased work of breathing, no conversational dyspnea, no accessory muscle use, no nasal flaring. No respiratory distress noted Heart: Regular rate and rhythm, No murmurs, No rubs and No gallops, 2+ distal pulses (radial, femoral, posterior tibial) in all extremities Abdomen: Soft, there is no tenderness, rigidity, rebound or guarding, no obvious peritoneal signs, no palpable pulsatile abdominal masses, no auscultated abdominal bruit : No CVAT Extremities: No edema Neuro: Alert and orient x 3, no lateralizing findings, no focal neurologic deficits, neuroexam at baseline no meningeal signs, negative Kernig's and Brudzinski's sign. Skin: No rash or lesions noted MEDICAL DECISION MAKING: Chief Complaint: Abdominal pain External records reviewed: Reviewed prior imaging studies: Reviewed CT scans from 07/21 and 07/23/2024. CT scan from 07/21 this showed postsurgical changes, postop ileus it did show developing obstruction cannot be excluded. Scan from 1216 showed improvement. Factors affecting care: recent hysterectomy Social determinants of health: none History obtained from others: none Consults: Discussed case with the patient's SUPERVISOR CUTTING [employer] SEWING ROOM Dr. Costa, IM physician Dr. Whelan -discussed patient's presentation case and his recommendation admit the patient to [facility] medical further evaluation, await cultures and undergo further workup for fever and elevated liver enzymes. MDM Narrative: Patient was initially I considered the following differential diagnosis: Pneumonia, COVID, flu, RSV, postop infection, UTI, bacteremia, meningitis I considered meningitis as a potential etiology the patient's complaint given headache and fever. She had no neck stiffness. No focal neurologic deficits. She had negative Kernig's presents salazar sign. Is less likely suffering from bacterial meningitis given duration of fever which is been ongoing for last 5 days. She did have Bactrim meningitis is likely she would have come to this at this point. Given lack of clinical exam features, duration of illness does not think the risk of an LP is worth the benefit at this time. ALL IMAGES (IF OBTAINED) HAVE BEEN PERSONALLY REVIEWED AND INTERPRETED BY MYSELF. EKG with normal sinus rhythm at a rate of 100, left axis deviation, normal intervals, QTc 441, no STEMI Salicylate and Tylenol level negative Lipase is wnl indicating no pancreatic inflammation. CBC with leukocytosis consistent with systemic inflammation, mild anemia (similar to prior), no thrombocytopenia PT/INR within the limit suggesting intact liver synthetic function BMP with mild hypokalemia 3.4 otherwise no significant Constantia normalities, no signs of endorgan hypoperfusion or metabolic acidosis with normal bicarb and anion gap, no acute kidney injury Lactate is wnl indicating no end-organ hypoperfusion and/or hypoxia. Urinalysis shows no evidence of urinary inflammation suggestive of UTI CT scans of the head, chest abdomen pelvis suggest no acute infectious etiologies. COVID/RSV/flu were negative Blood cultures were drawn, urine culture was drawn and are pending at this time The etiology the patient's complaint aleah unclear. Given multiple ED visits, abnormal vital signs namely tachycardia fever and signs of severe systemic inflammation with elevated white blood cell count as well as signs of liver dysfunction with elevated liver enzymes will admit the patient to undergo further testing and to await blood cultures. Did discuss with internal med physician Dr. Whelan who agreed to meet the patient to [facility] floor. The patient and/or family, caregivers express understanding. The patient and/or family, caregivers agrees with the plan. Shared decision making: I will have a discussion with the patient and or visitors regarding risk/benefits of further testing or admission. They will be made aware of of the risk/benefits inherent in this decision they will be given the opportunity to voice understanding. Total critical care time today provided was at least 0 minutes. This excludes separately billable procedures. Critical care time (if documented) is secondary to the patient having high probability of clinically significant/life threatening deterioration in the patient's condition which required my urgent intervention. Impression: 1. Abdominal pain 2. Fever 3. Elevated liver enzymes Dispo: Admit to [facility] This note was generated with [employer] dictation software. It may contain incorrect words, spelling, and punctuation that were not noted in review of the chart prior to signing. Lab Data Labs: Laboratory Results - last 24 hr 07/25/24 07/25/24 21:12 21:19 WBC 12.4 H RBC 3.82 L Hgb 10.9 L Hct 32.8 L MCV 85.9 MCH 28.5 MCHC 33.2 D RDW Std Deviation 40.0 RDW Coeff of Willie 12.8 Plt Count 304 MPV 9.2 Immature Gran % (Auto) 1.400 H Neut % (Auto) 79.4 H Lymph % (Auto) 8.6 L [place] % (Auto) 8.9 Eos % (Auto) 1.4 Baso % (Auto) 0.3 Absolute Neuts (auto) 9.9 H Absolute Lymphs (auto) 1.07 Nucleated RBC % 0 PT 13.8 INR 1.1 Sodium 136 Potassium 3.4 L Chloride 104 Carbon Dioxide 26.0 Anion Gap 6 BUN 13 Creatinine 0.72 Est GFR (MDRD) Af Amer 109 Est GFR (MDRD) Non-Af 90 BUN/Creatinine Ratio 18.0 Glucose 111 H Lactic Acid 0.8 Calcium 8.8 Total Bilirubin 0.40 Direct Bilirubin 0.24 AST 50 H ALT 76 H Alkaline Phosphatase 532 H Total Protein 7.1 Albumin 2.8 L Globulin 4.3 H Lipase 13 Urine Color Yellow Urine Clarity Sl. Cloudy Urine pH 8.0 Ur Specific [place] 1.015 Urine Protein 15 H Urine Glucose (UA) Normal Urine Ketones 15 H Urine Occult Blood Negative Urine Nitrite Negative Urine Bilirubin Negative Urine Urobilinogen Normal Ur Leukocyte Esterase Negative Urine RBC 0 SEEN Urine WBC 0 SEEN Ur Squamous Epith Cells 0-5 SEEN Amorphous Sediment 1+ PHOS Urine Bacteria 0 SEEN Urine Mucus 0 SEEN Salicylates < 1.7 L Acetaminophen < 2.0 L Radiography Diagnostic Testing: Clinical Impression(s) from Imaging Studies Brain CT 07/25/24 21:01 IMPRESSION: No CT evidence of acute intracranial pathology. Electronically Signed: Ritchie Koenig DO at 22:40 EST , Chest/Abdomen/Pelvis CT 07/25/24 21:01 IMPRESSION: 1. Status post hysterectomy. Strandy opacities in the pelvis may be expected postoperative change. 2. Urinary bladder wall thickening without discrete evidence of bladder disruption. There is bladder wall injury or postoperative changes of the bladder wall considered although there is no edvin evidence of bladder rupture. Otherwise, consider cystitis less likely giving the more regional area of wall thickening. 3. Air-fluid levels within nondistended small bowel loops and moderate fluid throughout the mildly distended colon. Correlate for evidence of an enteritis or other diarrheal state. 4. Status post cholecystectomy. Intrahepatic and extrahepatic biliary ductal dilatation. Mild hepatomegaly. 5. No acute findings in the chest. Electronically Signed: Ritchie KoenigDO at 22:34 EST , Discharge Plan Disposition Disposition: Acute Care Hospital [facility] Discharge Date/Time: 07/26/24 00:06
--- NOTE | 2024-07-25 20:42 | EX.ED.DYSGE1 ---
HPI History of Present Illness Chief Complaint: General Illness [facility] Medical History Depression PONV (postoperative nausea and vomiting) Wears glasses Wears dentures Thyroid disease Arthritis Anemia Restless legs Syncope History of IBS Non-smoker History of edema History of rheumatic fever Home Medications ?Medication ?Instructions ?Recorded ?Last Taken ?Type cholecalciferol (vitamin D3) 50 50 mcg PO DAILY bone 11/05/21 Unknown History mcg (2,000 unit) capsule (Vitamin D3) vitamin A 2,400 mcg capsule 2,400 mcg PO DAILY health 11/05/21 Unknown History escitalopram oxalate 20 mg tablet 20 mg PO QDAY anxiety 04/18/24 07/16/24 04:30 History (Lexapro) FACTOR 5 clotting 07/02/24 07/07/24 History oxycodone 10 mg tablet 10 mg PO Q6H PRN pain 7 days #28 07/23/24 Unknown Rx tabs ibuprofen 800 mg tablet 800 mg PO Q8H #30 tabs 07/25/24 Unknown Rx levothyroxine 50 mcg tablet 50 mcg PO DAILY thyroid 07/25/24 Unknown History Allergy/AdvReac Type Severity Reaction Status Date / Time codeine Allergy Mild Nausea Verified 07/25/24 20:39 adhesive tape (surgical tape) Allergy Rash Verified 07/25/24 20:39 Family History Father Cancer Throat Surgical History S/P endometrial ablation History of mandibular surgery S/P knee surgery History of back surgery Hx laparoscopic cholecystectomy History of Social History household members: spouse current occupational status: unemployed Smoking Status: Never smoker alcohol intake: never substance use type: does not use seatbelt use: always do you feel safe at home: Yes additional social history: - Stephen Kirby EXAM Physical Exam Const Vital Signs: 07/25/24 20:39 07/25/24 21:24 07/25/24 22:37 Temperature 100.2 F H 99.6 F H Temperature Source Oral Oral Pulse Rate 113 H 108 H Respiratory Rate 20 H 16 Respiratory Effort Normal Non-Labored Respiratory Pattern Normal Blood Pressure 140/88 H 131/68 H Blood Pressure Mean 105 89 Pulse Ox 99 97 Oxygen Delivery Method Room Air Room Air [facility] [place] Medical decision making narrative: HISTORY OF PRESENT ILLNESS: 49-year-old female history of IBS, cholecystectomy, C-sections and recent hysterectomy presents with fever of unknown origin. No she has been having a fever since 07/20/2024. She notes she had hysterectomy done on 07/16/2024. She does she has been to the ED multiple times but there was not been a source of infection identified. She notes she has right-sided abdominal pain. She notes she also has a headache. She notes just before her operation she had a sinus infection. She denies cough or chills. REVIEW OF SYSTEMS: Pertinent positives: Fever, headache, abdominal pain, nausea Pertinent negatives: Vomiting, diarrhea, constipation, urinary complaints, cough, shortness of breath, skin changes PHYSICAL EXAM: Nursing triage notes reviewed, Vital signs reviewed Constitutional: please see mdm HENT: MMM Eyes: Pupils equal round and reactive to light, Extraocular muscles intact Neck: No stridor, no JVD, full neck ROM Lungs: Clear to auscultation, No wheezing or rales. No increased work of breathing, no conversational dyspnea, no accessory muscle use, no nasal flaring. No respiratory distress noted Heart: Regular rate and rhythm, No murmurs, No rubs and No gallops, 2+ distal pulses (radial, femoral, posterior tibial) in all extremities Abdomen: Soft, there is no tenderness, rigidity, rebound or guarding, no obvious peritoneal signs, no palpable pulsatile abdominal masses, no auscultated abdominal bruit : No CVAT Extremities: No edema Neuro: Alert and orient x 3, no lateralizing findings, no focal neurologic deficits, neuroexam at baseline no meningeal signs, negative Kernig's and Brudzinski's sign. Skin: No rash or lesions noted MEDICAL DECISION MAKING: Chief Complaint: Abdominal pain External records reviewed: Reviewed prior imaging studies: Reviewed CT scans from 07/21 and 07/23/2024. CT scan from 07/21 this showed postsurgical changes, postop ileus it did show developing obstruction cannot be excluded. Scan from 1216 showed improvement. Factors affecting care: recent hysterectomy Social determinants of health: none History obtained from others: none Consults: Discussed case with the patient's [employer] HEL[employer] Dr. Costa, IM physician Dr. Whelan -discussed patient's presentation case and his recommendation admit the patient to [facility] medical further evaluation, await cultures and undergo further workup for fever and elevated liver enzymes. MDM Narrative: Patient was initially I considered the following differential diagnosis: Pneumonia, COVID, flu, RSV, postop infection, UTI, bacteremia, meningitis I considered meningitis as a potential etiology the patient's complaint given headache and fever. She had no neck stiffness. No focal neurologic deficits. She had negative Kernig's presents salazar sign. Is less likely suffering from bacterial meningitis given duration of fever which is been ongoing for last 5 days. She did have Bactrim meningitis is likely she would have come to this at this point. Given lack of clinical exam features, duration of illness does not think the risk of an LP is worth the benefit at this time. ALL IMAGES (IF OBTAINED) HAVE BEEN PERSONALLY REVIEWED AND INTERPRETED BY MYSELF. EKG with normal sinus rhythm at a rate of 100, left axis deviation, normal intervals, QTc 441, no STEMI Salicylate and Tylenol level negative Lipase is wnl indicating no pancreatic inflammation. CBC with leukocytosis consistent with systemic inflammation, mild anemia (similar to prior), no thrombocytopenia PT/INR within the limit suggesting intact liver synthetic function BMP with mild hypokalemia 3.4 otherwise no significant [place] normalities, no signs of endorgan hypoperfusion or metabolic acidosis with normal bicarb and anion gap, no acute kidney injury Lactate is wnl indicating no end-organ hypoperfusion and/or hypoxia. Urinalysis shows no evidence of urinary inflammation suggestive of UTI CT scans of the head, chest abdomen pelvis suggest no acute infectious etiologies. COVID/RSV/flu were negative Blood cultures were drawn, urine culture was drawn and are pending at this time The etiology the patient's complaint aleah unclear. Given multiple ED visits, abnormal vital signs namely tachycardia fever and signs of severe systemic inflammation with elevated white blood cell count as well as signs of liver dysfunction with elevated liver enzymes will admit the patient to undergo further testing and to await blood cultures. Did discuss with internal med physician Dr. Whelan who agreed to meet the patient to [facility] floor. The patient and/or family, caregivers express understanding. The patient and/or family, caregivers agrees with the plan. Shared decision making: I will have a discussion with the patient and or visitors regarding risk/benefits of further testing or admission. They will be made aware of of the risk/benefits inherent in this decision they will be given the opportunity to voice understanding. Total critical care time today provided was at least 0 minutes. This excludes separately billable procedures. Critical care time (if documented) is secondary to the patient having high probability of clinically significant/life threatening deterioration in the patient's condition which required my urgent intervention. Impression: 1. Abdominal pain 2. Fever 3. Elevated liver enzymes Dispo: Admit to [facility] This note was generated with [id number] dictation software. It may contain incorrect words, spelling, and punctuation that were not noted in review of the chart prior to signing. Lab Data Labs: Laboratory Results - last 24 hr 07/25/24 07/25/24 21:12 21:19 WBC 12.4 H RBC 3.82 L Hgb 10.9 L Hct 32.8 L MCV 85.9 MCH 28.5 MCHC 33.2 D RDW Std Deviation 40.0 RDW Coeff of Willie 12.8 Plt Count 304 MPV 9.2 Immature Gran % (Auto) 1.400 H Neut % (Auto) 79.4 H Lymph % (Auto) 8.6 L [place] % (Auto) 8.9 Eos % (Auto) 1.4 Baso % (Auto) 0.3 Absolute Neuts (auto) 9.9 H Absolute Lymphs (auto) 1.07 Nucleated RBC % 0 PT 13.8 INR 1.1 Sodium 136 Potassium 3.4 L Chloride 104 Carbon Dioxide 26.0 Anion Gap 6 BUN 13 Creatinine 0.72 Est GFR (MDRD) Af Amer 109 Est GFR (MDRD) Non-Af 90 BUN/Creatinine Ratio 18.0 Glucose 111 H Lactic Acid 0.8 Calcium 8.8 Total Bilirubin 0.40 Direct Bilirubin 0.24 AST 50 H ALT 76 H Alkaline Phosphatase 532 H Total Protein 7.1 Albumin 2.8 L Globulin 4.3 H Lipase 13 Urine Color Yellow Urine Clarity Sl. Cloudy Urine pH 8.0 Ur Specific [place] 1.015 Urine Protein 15 H Urine Glucose (UA) Normal Urine Ketones 15 H Urine Occult Blood Negative Urine Nitrite Negative Urine Bilirubin Negative Urine Urobilinogen Normal Ur Leukocyte Esterase Negative Urine RBC 0 SEEN Urine WBC 0 SEEN Ur Squamous Epith Cells 0-5 SEEN Amorphous Sediment 1+ PHOS Urine Bacteria 0 SEEN Urine Mucus 0 SEEN Salicylates < 1.7 L Acetaminophen < 2.0 L Radiography Diagnostic Testing: Clinical Impression(s) from Imaging Studies Brain CT 07/25/24 21:01 IMPRESSION: No CT evidence of acute intracranial pathology. Electronically Signed: Ritchie Koenig DO at 22:40 EST , Chest/Abdomen/Pelvis CT 07/25/24 21:01 IMPRESSION: 1. Status post hysterectomy. Strandy opacities in the pelvis may be expected postoperative change. 2. Urinary bladder wall thickening without discrete evidence of bladder disruption. There is bladder wall injury or postoperative changes of the bladder wall considered although there is no devin evidence of bladder rupture. Otherwise, consider cystitis less likely giving the more regional area of wall thickening. 3. Air-fluid levels within nondistended small bowel loops and moderate fluid throughout the mildly distended colon. Correlate for evidence of an enteritis or other diarrheal state. 4. Status post cholecystectomy. Intrahepatic and extrahepatic biliary ductal dilatation. Mild hepatomegaly. 5. No acute findings in the chest. Electronically Signed: Ritchie KoenigDO at 22:34 EST , Discharge Plan Disposition Disposition: Acute Care Hospital [facility] Discharge Date/Time: 07/26/24 00:06
--- NOTE | 2024-07-25 21:01 | CT_ITS ---
EXAM: CT HEAD WITHOUT INTRAVENOUS CONTRAST CLINICAL INDICATION: [place] TECHNIQUE: Multiple axial images were obtained of the head without intravenous contrast. This CT exam was performed using one or more of the following dose reduction techniques: automated exposure control, adjustment of the mA and/or kV according to patient size, and/or use of iterative reconstruction technique. COMPARISON: No relevant prior studies available. FINDINGS: BRAIN AND EXTRA-AXIAL SPACES: No significant abnormality. No intra- or extra-axial hemorrhage. No evidence of acute infarct. No intracranial mass or mass effect. There is preservation of the paz/white matter interface. Ventricles are appropriate for age. Basal cisterns are patent. BONES/JOINTS: Chronic posttraumatic and postoperative changes of the visualized right mandible. No discrete lytic or blastic abnormalities. SINUSES: Right maxillary sinus mucus retention cyst. MASTOID AIR CELLS: No significant effusion. ORBITS: No acute findings. CT/Brain/Head without Contrast IMPRESSION: No CT evidence of acute intracranial pathology. Electronically Signed: Ritchie Koenig DO at 22:40 EST ,
--- NOTE | 2024-07-25 21:01 | EKG12_ITS ---
Test Reason : DYSRHYTHMIA Blood Pressure : */* mmHG Vent. Rate : 100 BPM Atrial Rate : 100 BPM P-R Int : 144 ms QRS Dur : 86 ms QT Int : 342 ms P-R-T Axes : 53 -8 38 degrees QTcB Int : 441 ms Normal sinus rhythm Normal ECG Confirmed by AMY ZAMORA, SHARI ([id number]), editorial intern TUYET BACH ([id number]) on 07/26/2024 8:15:25 AM Referred By: Confirmed By: SHARI REYES MD
--- NOTE | 2024-07-25 21:01 | CT_ITS ---
EXAM: CT CHEST, ABDOMEN AND PELVIS WITH INTRAVENOUS CONTRAST CLINICAL INDICATION: fever of unknown origin status post hysterectomy. TECHNIQUE: Helically acquired images were obtained of the chest, abdomen and pelvis with intravenous contrast. This CT exam was performed using one or more of the following dose reduction techniques: automated exposure control, adjustment of the mA and/or kV according to patient size, and/or use of iterative reconstruction technique. CONTRAST: IV 100mL [id number] COMPARISON: CT abdomen and pelvis, 07/23/2024. FINDINGS: CHEST: LUNGS AND PLEURAL SPACES: No significant abnormality. No mass. No consolidation or edema. No pleural effusion or thickening. No pneumothorax. HEART: No significant abnormality. Heart size is normal. No pericardial effusion. MEDIASTINUM: No significant abnormality. No mediastinal or hilar adenopathy. Esophagus is unremarkable. No hiatal hernia. THYROID: No significant abnormality. No thyroid lesions. ABDOMEN: LIVER: Intrahepatic biliary ductal dilatation. Mild hepatomegaly. No focal hepatic lesion is identified. GALLBLADDER AND BILE DUCTS: Status post cholecystectomy. Mild prominence of the common bile duct measuring 7 mm. PANCREAS: No significant abnormality. No focal cystic or solid mass. SPLEEN: No significant abnormality. Normal size without focal cystic or solid mass. ADRENALS: No significant abnormality. No nodules. KIDNEYS AND URETERS: No significant abnormality. Normal renal size and position. No hydronephrosis. STOMACH AND BOWEL: Air-fluid levels within nondistended small bowel loops and moderate fluid throughout the mildly distended colon. No focal inflammatory change. PELVIS: APPENDIX: No evidence of acute appendicitis. BLADDER: Urinary bladder wall thickening without discrete evidence of bladder disruption. REPRODUCTIVE: Status post hysterectomy. Strandy opacities in the pelvis may be expected postoperative change. CHEST, ABDOMEN and PELVIS: INTRAPERITONEAL SPACE: No significant abnormality. No ascites or other fluid collection. No free air. BONES/JOINTS: Degenerative changes in the spine. No suspicious lytic or blastic abnormality. SOFT TISSUES: Rectus diastases. Postoperative changes in the anterior abdominal wall. No discrete abdominal or pelvic wall hernia. VASCULATURE: No significant abnormality. Aorta is non-dilated. No aortic dissection. No obvious central pulmonary embolism although this study was not performed with the pulmonary embolism protocol. LYMPH NODES: No significant abnormality. No enlarged lymph nodes. CT/CT Chest, Abd, Pel w/Contrast IMPRESSION: 1. Status post hysterectomy. Strandy opacities in the pelvis may be expected postoperative change. 2. Urinary bladder wall thickening without discrete evidence of bladder disruption. There is bladder wall injury or postoperative changes of the bladder wall considered although there is no devin evidence of bladder rupture. Otherwise, consider cystitis less likely giving the more regional area of wall thickening. 3. Air-fluid levels within nondistended small bowel loops and moderate fluid throughout the mildly distended colon. Correlate for evidence of an enteritis or other diarrheal state. 4. Status post cholecystectomy. Intrahepatic and extrahepatic biliary ductal dilatation. Mild hepatomegaly. 5. No acute findings in the chest. Electronically Signed: Ritchie Koenig DO at 22:34 EST ,
--- NOTE | 2024-07-25 21:01 | CT_ITS ---
EXAM: CT HEAD WITHOUT INTRAVENOUS CONTRAST CLINICAL INDICATION: [place] TECHNIQUE: Multiple axial images were obtained of the head without intravenous contrast. This CT exam was performed using one or more of the following dose reduction techniques: automated exposure control, adjustment of the mA and/or kV according to patient size, and/or use of iterative reconstruction technique. COMPARISON: No relevant prior studies available. FINDINGS: BRAIN AND EXTRA-AXIAL SPACES: No significant abnormality. No intra- or extra-axial hemorrhage. No evidence of acute infarct. No intracranial mass or mass effect. There is preservation of the paz/white matter interface. Ventricles are appropriate for age. Basal cisterns are patent. BONES/JOINTS: Chronic posttraumatic and postoperative changes of the visualized right mandible. No discrete lytic or blastic abnormalities. SINUSES: Right maxillary sinus mucus retention cyst. MASTOID AIR CELLS: No significant effusion. ORBITS: No acute findings. CT/Brain/Head without Contrast IMPRESSION: No CT evidence of acute intracranial pathology. Electronically Signed: Ritchie Koenig DO at 22:40 EST ,
--- NOTE | 2024-07-25 21:01 | EKG12_ITS ---
Test Reason : DYSRHYTHMIA Blood Pressure : */* mmHG Vent. Rate : 100 BPM Atrial Rate : 100 BPM P-R Int : 144 ms QRS Dur : 86 ms QT Int : 342 ms P-R-T Axes : 53 -8 38 degrees QTcB Int : 441 ms Normal sinus rhythm Normal ECG Confirmed by AMY ZAMORA, SHARI ([id number]), clinical editor TUYET BACH ([id number]) on 07/26/2024 8:15:25 AM Referred By: Confirmed By: SHARI REYES MD
[2024-07-25 21:25] LABS: Bacteria 0 SEEN /hpf (None Seen); Mucous, Urine 0 SEEN /hpf (<or=2+); Red Blood Cells-Urine 0 SEEN /hpf (0-5); White Blood Cells 0 SEEN /hpf (0-5)
[2024-07-25 21:29] LABS: Absolute Lymphocyte Count 1.07 X10^3/uL (0.83-4.51); Absolute Neutrophil Count 9.9 X10^3/uL (2.0-7.7); Basophil# 0.04 X10^3/uL; Basophil% 0.3 % (0-1); Eosinophil# 0.18 X10^3/uL; Eosinophils% 1.4 % (0-5); Hematocrit 32.8 % (37-47); Hemoglobin 10.9 g/dL (12.0-15.0); Lymphocyte # 1.07 X10^3/ul (0.83-4.51); Lymphocyte % 8.6 % (19-41); Mean Corp Hgb Conc 33.2 g/dL (32-36); Mean Corpuscular Hgb 28.5 pg (27.0-32.0); Mean Corpuscular Volume 85.9 fL (81-99); Mean Platelet Vol. 9.2 fl (6.2-12.0); Monocyte# 1.11 X10^3/uL; Monocyte% 8.9 % (0-10); NRBC Flagged by Analyzer 0 % (0-5); Neutrophil # 9.86 X10^3/uL (2.7-7.7); Neutrophil % 79.4 % (47-70); Platelet Count 304 K/mm3 (150-450); RBC Distribution Width CV 12.8 % (11.6-14.6); Red Blood Count 3.82 M/mm3 (4.2-5.4); White Blood Count 12.4 K/mm3 (4.4-11.0)
[2024-07-25] MEDS: 0.9% Normal Saline (1000mL) 1,000 ML 1000 ML IV (21:31)
[2024-07-25] MEDS: Morphine 4 MG/ML Syringe IV (21:31)
[2024-07-25] MEDS: Metoclopramide 10 MG/2 ML Vial IV (21:31)
[2024-07-25 21:33] LABS: Color, Urine Yellow (Yellow); Glucose, Dipstick Normal (Normal); Ketone-Dipstick 15 mg/dl (Negative); Leukocyte Esterase-Dipstick Negative /ul (Negative); Nitrite-Dipstick Negative (Negative); Occult Blood-Urine Negative /ul (Negative); Protein-Dipstick 15 mg/dl (Negative); Specific Gravity, Urine 1.015 (1.002-1.030); Urine Bilirubin Dipstick Negative (Negative); Urine Clarity Sl. Cloudy (Clear); Urine Urobilinogen Normal (Normal)
[2024-07-25 21:38] LABS: International Normalized Ratio 1.1; Prothrombin Time (Protime)PT. 13.8 SECONDS (11.7-14.9)
[2024-07-25 21:39] LABS: POSITIVE COUNT NO; POSITIVE DIFFERENTIAL NO; POSITIVE MORPHOLOGY NO
[2024-07-25 21:41] LABS: Amorphous Sediment 1+ PHOS; Squamous Epithelial Cells - UA 0-5 SEEN /hpf (5-10)
[2024-07-25 21:45] LABS: AST(SGOT) 50 U/L (15-37); Acetaminophen (Tylenol) Level < 2.0 ug/mL (10.0-30.0); Alanine Aminotransfer ALT/SGPT 76 U/L (13-56); Albumin, Serum 2.8 g/dL (3.2-5.0); Alkaline Phosphatase 532 U/L (45-117); Anion Gap 6 (5-15); BUN 13 mg/dL (7-18); Bilirubin, Direct 0.24 mg/dL (0.00-0.30); Calcium,Total 8.8 mg/dL (8.5-10.1); Chloride 104 mmol/L (98-107); Creatinine, Serum 0.72 mg/dL (0.55-1.02); EST Glomerular Filtration Rate 90 mL/min (>60); Est Glom Filt Rate - Afr Amer 109 mL/min (>60); Globulin 4.3 g/dL (2.2-4.2); Glucose 111 mg/dL (74-106); Lipase 13 U/L (13-75); Potassium 3.4 mmol/L (3.5-5.1); Protein, Total 7.1 g/dL (6.4-8.2); Salicylate < 1.7 mg/dL (2.8-20.0); Sodium Level 136 mmol/L (136-145)
[2024-07-25 21:46] VITALS: BMI 35.8
[2024-07-25 21:55] LABS: Lactic Acid 0.8 mmol/L (0.4-1.9)
[2024-07-25 22:37] VITALS: BP 131/68; PULSE 108; RESP 16; TEMP 37.6; O2SAT 97
[2024-07-25 23:15] VITALS: BP 131/68; PULSE 107; PULSE 108; RESP 15; TEMP 37.6; O2SAT 97
[2024-07-25] MEDS: Ibuprofen 200 MG Tablet 400 MG PO (23:23)
--- NOTE | 2024-07-25 23:36 | HP.PCM.HOS_ITS ---
HPI - General General Date of Admission: 07/25/24 HPI Narrative JENNIFER العراقي, is a 49 F who presents to the hospital with right lower quadrant abdominal pain. She had a laparoscopic hysterectomy on 07/16/2024 and then on Monday developed right lower quadrant abdominal pain. It has stayed on her right side, is not worse with any p.o. intake, she has a slight fever as well as a mild leukocytosis. Her LFTs were elevated and there is an unclear etiology, she was taking a little bit higher than the 4 g recommended by Tylenol however the toxic level for Tylenol and a healthy liver is 10 g so not concerned especially with her AST and ALT improving. She denies any increase in her diarrhea, she has had loose stools multiple times a day after her cholecystectomy. Of note she has not had an appendectomy. Also she has had several CT scans however none of them were done with p.o. contrast and showed varying degrees of ileus versus enteritis and no enteric pathogen panel has been done either. Blood cultures are pending in the ER, alk phos remains elevated. [facility] Medical History Depression PONV (postoperative nausea and vomiting) Wears glasses Wears dentures Thyroid disease Arthritis Anemia Restless legs Syncope History of IBS Non-smoker History of edema History of rheumatic fever Home Medications ?Medication ?Instructions ?Recorded ?Last Taken ?Type cholecalciferol (vitamin D3) 50 50 mcg PO DAILY bone 11/05/21 Unknown History mcg (2,000 unit) capsule (Vitamin D3) vitamin A 2,400 mcg capsule 2,400 mcg PO DAILY health 11/05/21 Unknown History escitalopram oxalate 20 mg tablet 20 mg PO QDAY anxiety 04/18/24 07/16/24 04:30 History (Lexapro) FACTOR 5 clotting 07/02/24 07/07/24 History oxycodone 10 mg tablet 10 mg PO Q6H PRN pain 7 days #28 07/23/24 Unknown Rx tabs ibuprofen 800 mg tablet 800 mg PO Q8H pain #30 tabs 07/25/24 Unknown Rx levothyroxine 50 mcg tablet 50 mcg PO DAILY thyroid 07/25/24 Unknown History Allergy/AdvReac Type Severity Reaction Status Date / Time codeine Allergy Mild Nausea Verified 07/25/24 20:39 adhesive tape (surgical tape) Allergy Rash Verified 07/25/24 20:39 Family History Father Cancer Throat Surgical History S/P endometrial ablation History of mandibular surgery S/P knee surgery History of back surgery Hx laparoscopic cholecystectomy History of Social History household members: spouse current occupational status: unemployed Smoking Status: Never smoker alcohol intake: never substance use type: does not use seatbelt use: always do you feel safe at home: Yes additional social history: - Stephen GILLETTE Constitutional Constitutional: Reports chills and fever(s); Denies fatigue or malaise Eyes Eyes: Denies blurry vision ENT HEENT: Denies headache(s) or nasal discharge Cardiovascular Cardiovascular: Denies chest pain, dyspnea on exertion or syncope Respiratory/Chest Respiratory/Chest: Denies cough, shortness of breath at rest or shortness of breath with exertion Gastrointestinal Gastrointestinal: Reports abdominal pain, diarrhea, nausea and vomiting; Denies constipation Genitourinary Genitourinary: Denies dysuria Neurologic Neurologic: Denies focal weakness, numbness or tremor(s) Psychiatric Psychiatric: Denies anxiety or depression Vital Signs Vital Signs Vital Signs: 07/25/24 20:39 07/25/24 21:24 07/25/24 22:37 Temperature 100.2 F H 99.6 F H Temperature Source Oral Oral Pulse Rate 113 H 108 H Respiratory Rate 20 H 16 Respiratory Effort Normal Non-Labored Respiratory Pattern Normal Blood Pressure 140/88 H 131/68 H Blood Pressure Mean 105 89 Pulse Ox 99 97 Oxygen Delivery Method Room Air Room Air 07/25/24 23:15 07/25/24 23:15 Temperature 99.6 F H 99.6 F H Temperature Source Oral Pulse Rate 108 H 107 H Respiratory Rate 15 15 Respiratory Effort Respiratory Pattern Blood Pressure 131/68 H 131/68 H Blood Pressure Mean 89 89 Pulse Ox 97 97 Oxygen Delivery Method Room Air Weight Weight: 202 lb 6.15 oz Body Mass Index (BMI) 35.8 Physical Exam Narrative General: Alert, Oriented x3, Cooperative, No apparent distress HEENT: Atraumatic, PERRLA, EOMI, Normocephalic Oral: Moist Mucosa Neck: Supple, No JVD Lungs: Clear to auscultation, Normal air movement, No rhonchi, No wheeze, No rales Cardiovascular: Tachycardic, Regular Rhythm, Normal S1, Normal S2, No murmurs Abdomen: Soft, RLQ tender, Non-Distended, No Hepato-splenomegaly Extremities: No edema, Capillary Refill Less than 3 Seconds Skin: No rashes, No breakdown, laparoscopic sites do not appear to be infected, she does have a reaction on the left abdomen to tape Musculoskeletal: No Tenderness to Palpation of Joints or Extremities Neurological: No focal neurological deficits, Motor Exam 5/5 strength throughout, Sensory exam intact to light touch and pain Psych/Mental Status: Normal Affect, Appropriate Results Lab / Micro Data 07/25/24 21:12 07/25/24 21:12 Labs: Laboratory Results - last 24 hr 07/25/24 21:12: WBC 12.4 H, RBC 3.82 L, Hgb 10.9 L, Hct 32.8 L, MCV 85.9, MCH 28.5, MCHC 33.2 D, RDW Std Deviation 40.0, RDW Coeff of Willie 12.8, Plt Count 304, MPV 9.2, Immature Gran % (Auto) 1.400 H, Neut % (Auto) 79.4 H, Lymph % (Auto) 8.6 L, [place] % (Auto) 8.9, Eos % (Auto) 1.4, Baso % (Auto) 0.3, Absolute Neuts (auto) 9.9 H, Absolute Lymphs (auto) 1.07, Nucleated RBC % 0, PT 13.8, INR 1.1, Sodium 136, Potassium 3.4 L, Chloride 104, Carbon Dioxide 26.0, Anion Gap 6, BUN 13, Creatinine 0.72, Est GFR (MDRD) Af Amer 109, Est GFR (MDRD) Non-Af 90, BUN/Creatinine Ratio 18.0, Glucose 111 H, Lactic Acid 0.8, Calcium 8.8, Total Bilirubin 0.40, Direct Bilirubin 0.24, AST 50 H, ALT 76 H, Alkaline Phosphatase 532 H, Total Protein 7.1, Albumin 2.8 L, Globulin 4.3 H, Lipase 13, Salicylates < 1.7 L, Acetaminophen < 2.0 L 07/25/24 21:19: Urine Color Yellow, Urine Clarity Sl. Cloudy, Urine pH 8.0, Ur Specific [place] 1.015, Urine Protein 15 H, Urine Glucose (UA) Normal, Urine Ketones 15 H, Urine Occult Blood Negative, Urine Nitrite Negative, Urine Bilirubin Negative, Urine Urobilinogen Normal, Ur Leukocyte Esterase Negative, Urine RBC 0 SEEN, Urine WBC 0 SEEN, Ur Squamous Epith Cells 0-5 SEEN, Amorphous Sediment 1+ PHOS, Urine Bacteria 0 SEEN, Urine Mucus 0 SEEN Micro: Microbiology 07/25/24 21:19 Mucosa - Nose SARS-CoV-2, Influenza & RSV (PCR) - Final Imaging Radiology Impression Brain CT 07/25/24 21:01 IMPRESSION: No CT evidence of acute intracranial pathology. Electronically Signed: Ritchie VArnel Koenig DO at 22:40 EST , Chest/Abdomen/Pelvis CT 07/25/24 21:01 IMPRESSION: 1. Status post hysterectomy. Strandy opacities in the pelvis may be expected postoperative change. 2. Urinary bladder wall thickening without discrete evidence of bladder disruption. There is bladder wall injury or postoperative changes of the bladder wall considered although there is no devin evidence of bladder rupture. Otherwise, consider cystitis less likely giving the more regional area of wall thickening. 3. Air-fluid levels within nondistended small bowel loops and moderate fluid throughout the mildly distended colon. Correlate for evidence of an enteritis or other diarrheal state. 4. Status post cholecystectomy. Intrahepatic and extrahepatic biliary ductal dilatation. Mild hepatomegaly. 5. No acute findings in the chest. Electronically Signed: Ritchie Tomasa Koenig DO at 22:34 EST , Assessment & Plan Assessment/Plan (1) RLQ abdominal pain: (2) Elevated liver enzymes: PLAN: Plan 1. Right lower quadrant abdominal pain with elevated LFTs in the setting of a recent hysterectomy ? Will repeat a CT scan with p.o. and IV contrast tomorrow in the meantime continue with IV fluids ? Clear liquid diet ? Pain medications ? Will check an enteric pathogen panel ? Not concern for Tylenol overdose 2. Hypothyroidism ? Stable ? Can resume her home medications when verified, based on note review it looks like she might have been increased to 50 mcg recently DVT: Ambulation 75 minutes was spent on direct patient care, including documentation as well as chart review and collaboration with colleagues Charges/Coding Visit Charges Inpatient E&M: 06892 Init Hosp L3
[2024-07-26] VITALS (8 sets, daily range): BP systolic 115–164; BP diastolic 65–98; PULSE 80–112; RESP 16–22; TEMP 36.6–39.1; O2SAT 95–100; BMI 34.3
[2024-07-26] MEDS: Morphine 2 MG/ML Syringe IV ×6 (00:35→21:29)
[2024-07-26] MEDS: 0.9% Normal Saline (1000mL) 1,000 ML 75 ML IV ×2 (00:35→15:45)
--- NOTE | 2024-07-26 08:30 | CT_ITS ---
STUDY: CT ABDOMEN AND PELVIS WITH CONTRAST REASON FOR EXAM: Female, 49 years old. RLQ pain post hysterectomy RADIATION DOSAGE (If Supplied By Facility): CTDIvol = ( 14.87 ) mGy, DLP = ( 1009.47 ) mGycm TECHNIQUE: Transaxial images were obtained from the dome of the diaphragm to the symphysis pubis with oral contrast. Oral and amp; IV Gastrografin and amp; 100mL Isovue-300 was administered. Sagittal and coronal images were reconstructed. Individualized dose optimization techniques were used for this CT. COMPARISON: Comparison is made with prior study dated July 23, 2024. FINDINGS: The visualized lung bases are unremarkable. The visualized portions of the heart are within normal limits. There is decreased attenuation of the liver consistent with steatosis. Stable mild degree of central intrahepatic biliary ductal dilatation. Borderline hepatomegaly. There are surgical clips in the gallbladder fossa consistent with a prior cholecystectomy. Normal spleen. Normal pancreas. Normal bilateral adrenal glands. Normal right kidney. Normal left kidney. There is a small hiatal hernia. There is circumferential narrowing and mural thickening of the terminal ileum as well as ileal bowel loops within the pelvis. Bowel loops in the Normal colon. The appendix is visualized and appears normal. Normal abdominal aorta. Normal inferior vena cava. Normal retroperitoneum. Normal urinary bladder. Persistent increased markings in the pelvis in keeping with a recent hysterectomy and postoperative changes. Normal abdominal wall. There are degenerative changes of the visualized lumbar spine. CT/Abdomen/Pelvis WITH Contrast IMPRESSION: There now is evidence of inflammatory change involving the terminal ileum and distal ileal loops. Persistent postoperative increased markings are seen at the operative site within the pelvis. Electronically Signed: Jack Dinh MD at 9:00 EST ,
--- NOTE | 2024-07-26 08:30 | CT_ITS ---
STUDY: CT ABDOMEN AND PELVIS WITH CONTRAST REASON FOR EXAM: Female, 49 years old. RLQ pain post hysterectomy RADIATION DOSAGE (If Supplied By Facility): CTDIvol = ( 14.87 ) mGy, DLP = ( 1009.47 ) mGycm TECHNIQUE: Transaxial images were obtained from the dome of the diaphragm to the symphysis pubis with oral contrast. Oral and amp; IV Gastrografin and amp; 100mL Isovue-300 was administered. Sagittal and coronal images were reconstructed. Individualized dose optimization techniques were used for this CT. COMPARISON: Comparison is made with prior study dated July 23, 2024. FINDINGS: The visualized lung bases are unremarkable. The visualized portions of the heart are within normal limits. There is decreased attenuation of the liver consistent with steatosis. Stable mild degree of central intrahepatic biliary ductal dilatation. Borderline hepatomegaly. There are surgical clips in the gallbladder fossa consistent with a prior cholecystectomy. Normal spleen. Normal pancreas. Normal bilateral adrenal glands. Normal right kidney. Normal left kidney. There is a small hiatal hernia. There is circumferential narrowing and mural thickening of the terminal ileum as well as ileal bowel loops within the pelvis. Bowel loops in the Normal colon. The appendix is visualized and appears normal. Normal abdominal aorta. Normal inferior vena cava. Normal retroperitoneum. Normal urinary bladder. Persistent increased markings in the pelvis in keeping with a recent hysterectomy and postoperative changes. Normal abdominal wall. There are degenerative changes of the visualized lumbar spine. CT/Abdomen/Pelvis WITH Contrast IMPRESSION: There now is evidence of inflammatory change involving the terminal ileum and distal ileal loops. Persistent postoperative increased markings are seen at the operative site within the pelvis. Electronically Signed: Jack Dinh MD at 9:00 EST ,
[2024-07-26 09:40] LABS: Absolute Lymphocyte Count 0.93 X10^3/uL (0.83-4.51); Absolute Neutrophil Count 9.6 X10^3/uL (2.0-7.7); Basophil# 0.05 X10^3/uL; Basophil% 0.4 % (0-1); Eosinophil# 0.17 X10^3/uL; Eosinophils% 1.4 % (0-5); Hematocrit 31.6 % (37-47); Hemoglobin 10.4 g/dL (12.0-15.0); Lymphocyte # 0.93 X10^3/ul (0.83-4.51); Lymphocyte % 7.5 % (19-41); Mean Corp Hgb Conc 32.9 g/dL (32-36); Mean Corpuscular Hgb 28.3 pg (27.0-32.0); Mean Corpuscular Volume 86.1 fL (81-99); Mean Platelet Vol. 9.2 fl (6.2-12.0); Monocyte# 1.47 X10^3/uL; Monocyte% 11.9 % (0-10); NRBC Flagged by Analyzer 0 % (0-5); Neutrophil # 9.55 X10^3/uL (2.7-7.7); Neutrophil % 77.5 % (47-70); Platelet Count 279 K/mm3 (150-450); RBC Distribution Width SD 40.8 fl (35.1-43.9); Red Blood Count 3.67 M/mm3 (4.2-5.4); White Blood Count 12.3 K/mm3 (4.4-11.0)
[2024-07-26] MEDS: Ondansetron 4 MG/2 ML Vial IV ×2 (10:05→21:36)
[2024-07-26 10:09] LABS: ALB/GLOB Ratio 0.6 RATIO (0.9-2.4); AST(SGOT) 57 U/L (15-37); Alanine Aminotransfer ALT/SGPT 68 U/L (13-56); Albumin, Serum 2.4 g/dL (3.2-5.0); Alkaline Phosphatase 575 U/L (45-117); Anion Gap 7 (5-15); BUN 9 mg/dL (7-18); BUN/Creat Ratio 14.7 RATIO (10-20); Calcium,Total 8.6 mg/dL (8.5-10.1); Chloride 106 mmol/L (98-107); Creatinine, Serum 0.61 mg/dL (0.55-1.02); EST Glomerular Filtration Rate 109 mL/min (>60); Est Glom Filt Rate - Afr Amer 132 mL/min (>60); Estimated Creatinine Clearance 114.75 ml/min; Globulin 4.3 g/dL (2.2-4.2); Glucose 92 mg/dL (74-106); Potassium 3.5 mmol/L (3.5-5.1); Protein, Total 6.7 g/dL (6.4-8.2); Sodium Level 136 mmol/L (136-145)
[2024-07-26] MEDS: Piperacil/Tazobactam 3.375 GM in 0.9% Normal Saline (50mL MB+) 50 ML IV ×3 (10:23→21:42)
--- NOTE | 2024-07-26 10:27 | PCM.PN.HOSP ---
Reason for Visit Reason for Visit: Diagnoses Right lower quadrant pain (07/25/24) Abnormal levels of other serum enzymes (07/25/24) Subjective Subjective Saw patient at bedside this morning, present. Patient was fatigued appearing but otherwise laying back fairly comfortably in bed. She had returned from having the CT abdomen pelvis with p.o. and IV contrast about half an hour before I saw her. She reported having significant abdominal discomfort with nausea with the p.o. contrast and did have an episode of vomiting after she returned from CT. She currently reports mild nausea but no significant pain. Denies any fevers or chills but she does report generalized malaise. Discussed CT scan findings with Dr. Webb with general surgery earlier this afternoon. Scan showed evidence of inflammatory change involving the terminal ileum and distal ileal loops. Dr. Webb noted that these findings would seem most consistent with an infectious etiology. Crohn's disease will also present like this but this seems very unlikely for this patient. He noted that there was no evidence of appendicitis. Recommended treatment with antibiotics and continuing to monitor clinically. I saw the patient at bedside this afternoon, and daughters were present. Patient reported feeling similar to this morning. She is having a difficult time keeping any liquids down and has minimal appetite. She reports a diffuse abdominal pain with any p.o. intake along with nausea. She was inquiring about having a right upper quadrant ultrasound which GI had mentioned in their note on 07/23. Noted that we will order this and if she does not have improvement we can consider a gastric imaging study soon as well. Objective Data Objective Data Vital Signs: Vital Signs Temp Pulse Resp BP Pulse Ox O2 Del Method 98 F 87 16 127/81 H 97 Room Air 07/26/24 05:40 07/26/24 05:40 07/26/24 05:40 07/26/24 05:40 07/26/24 05:40 07/26/24 05:40 Oxygen Delivery Method Room Air Weight: 87.952 kg Body Mass Index (BMI) 34.3 Intake & Output: Intake and Output for Last 24 Hours 07/24/24 07/25/24 07/26/24 23:59 23:59 23:59 Intake Total 1000 / 1000 250 / 250 Balance 1000 / 1000 250 / 250 Lab / Micro Data 07/26/24 09:16 07/26/24 09:16 Labs: Laboratory Results - last 24 hr 07/25/24 21:12: WBC 12.4 H, RBC 3.82 L, Hgb 10.9 L, Hct 32.8 L, MCV 85.9, MCH 28.5, MCHC 33.2 D, RDW Std Deviation 40.0, RDW Coeff of Willie 12.8, Plt Count 304, MPV 9.2, Immature Gran % (Auto) 1.400 H, Neut % (Auto) 79.4 H, Lymph % (Auto) 8.6 L, [place] % (Auto) 8.9, Eos % (Auto) 1.4, Baso % (Auto) 0.3, Absolute Neuts (auto) 9.9 H, Absolute Lymphs (auto) 1.07, Nucleated RBC % 0, PT 13.8, INR 1.1, Sodium 136, Potassium 3.4 L, Chloride 104, Carbon Dioxide 26.0, Anion Gap 6, BUN 13, Creatinine 0.72, Est GFR (MDRD) Af Amer 109, Est GFR (MDRD) Non-Af 90, BUN/Creatinine Ratio 18.0, Glucose 111 H, Lactic Acid 0.8, Calcium 8.8, Total Bilirubin 0.40, Direct Bilirubin 0.24, AST 50 H, ALT 76 H, Alkaline Phosphatase 532 H, Total Protein 7.1, Albumin 2.8 L, Globulin 4.3 H, Lipase 13, Salicylates < 1.7 L, Acetaminophen < 2.0 L 07/25/24 21:19: Urine Color Yellow, Urine Clarity Sl. Cloudy, Urine pH 8.0, Ur Specific [place] 1.015, Urine Protein 15 H, Urine Glucose (UA) Normal, Urine Ketones 15 H, Urine Occult Blood Negative, Urine Nitrite Negative, Urine Bilirubin Negative, Urine Urobilinogen Normal, Ur Leukocyte Esterase Negative, Urine RBC 0 SEEN, Urine WBC 0 SEEN, Ur Squamous Epith Cells 0-5 SEEN, Amorphous Sediment 1+ PHOS, Urine Bacteria 0 SEEN, Urine Mucus 0 SEEN 07/26/24 09:16: WBC 12.3 H, RBC 3.67 L, Hgb 10.4 L, Hct 31.6 L, MCV 86.1, MCH 28.3, MCHC 32.9, RDW Std Deviation 40.8, RDW Coeff of Willie 13.0, Plt Count 279, MPV 9.2, Immature Gran % (Auto) 1.300 H, Neut % (Auto) 77.5 H, Lymph % (Auto) 7.5 L, [place] % (Auto) 11.9 H, Eos % (Auto) 1.4, Baso % (Auto) 0.4, Absolute Neuts (auto) 9.6 H, Absolute Lymphs (auto) 0.93, Nucleated RBC % 0, Sodium 136, Potassium 3.5, Chloride 106, Carbon Dioxide 23.0, Anion Gap 7, BUN 9, Creatinine 0.61, Estim Creat Clear Calc 114.75, Est GFR (MDRD) Af Amer 132, Est GFR (MDRD) Non-Af 109, BUN/Creatinine Ratio 14.7, Glucose 92, Calcium 8.6, Total Bilirubin 1.20 H, AST 57 H, ALT 68 H, Alkaline Phosphatase 575 H, Total Protein 6.7, Albumin 2.4 L, Globulin 4.3 H, Albumin/Globulin Ratio 0.6 L Micro: Microbiology 07/25/24 21:19 Mucosa - Nose SARS-CoV-2, Influenza & RSV (PCR) - Final Radiography Diagnostic Testing: Radiology Impression Brain CT 07/25/24 21:01 IMPRESSION: No CT evidence of acute intracranial pathology. Electronically Signed: Ritchie Koenig DO at 22:40 EST , Chest/Abdomen/Pelvis CT 07/25/24 21:01 IMPRESSION: 1. Status post hysterectomy. Strandy opacities in the pelvis may be expected postoperative change. 2. Urinary bladder wall thickening without discrete evidence of bladder disruption. There is bladder wall injury or postoperative changes of the bladder wall considered although there is no devin evidence of bladder rupture. Otherwise, consider cystitis less likely giving the more regional area of wall thickening. 3. Air-fluid levels within nondistended small bowel loops and moderate fluid throughout the mildly distended colon. Correlate for evidence of an enteritis or other diarrheal state. 4. Status post cholecystectomy. Intrahepatic and extrahepatic biliary ductal dilatation. Mild hepatomegaly. 5. No acute findings in the chest. Electronically Signed: Ritchie Koenig DO at 22:34 EST , Abdomen/Pelvis CT 07/26/24 08:30 IMPRESSION: There now is evidence of inflammatory change involving the terminal ileum and distal ileal loops. Persistent postoperative increased markings are seen at the operative site within the pelvis. Electronically Signed: Jack Dinh MD at 9:00 EST , Physical Exam Const alert, oriented x3 and no apparent distress Constitutional Narrative: Middle-age female, class I obesity, fatigued and mildly uncomfortable appearing due to ongoing nausea, otherwise answering questions appropriately and in no acute distress. General Appearance: cooperative HEENT normocephalic, head/scalp atraumatic, hearing grossly normal bilaterally and nasal mucous membranes and turbinates normal Eyes PERRL, EOMs intact bilaterally and conjunctivae normal Neck full ROM Chest inspection of chest normal Resp normal respiratory effort, normal air movement, no use of accessory muscles and clear to auscultation bilaterally Cardio regular rate, regular rhythm, no murmurs and peripheral pulses 2+ throughout GI GI Narrative: Abdomen mildly tender to palpation diffusely but otherwise soft and nondistended. Back/Spine normal ROM Extremity normal to inspection, full ROM and no pedal edema Skin no rashes or lesions noted Psych mental status grossly normal Psych Narrative: Flat affect. Assessment & Plan Assessment/Plan (1) RLQ abdominal pain: (2) Elevated liver enzymes: (3) Fever: (4) Nausea & vomiting: PLAN: Plan Patient is a 49-year-old female who presented [facility] ED on 07/25/2024 with persistent abdominal pain and fever/chills. 1. Persistent abdominal pain with nausea/vomiting, inflammation of distal and terminal ileum ? Patient with recent hysterectomy on 07/16 as noted below. Developed worsening abdominal pain 2 to 3 days postop. Had 2 ED visits on 07/21 and 07/23 for this; CT abdomen pelvis x 2 showed liver issues as noted below but no other concerning findings. Continued to have pain discomfort with fevers and chills leading to return on 07/25. CT abdomen pelvis with p.o. and IV contrast on 07/26 showed evidence of inflammatory change involving the terminal ileum and distal ileal loops. Discussed with general surgery who is suspected this was most likely due to infection; importantly no concern for appendicitis. Enteric panel sent. Will also send stool WBC and calprotectin. Has had low-grade fevers and mildly elevated white blood cell count. Will treat with IV Zosyn for now. Continue clear for diet, advance as tolerated. If patient does not improvement in p.o. intake, will consider gastric emptying study. 2. Elevated transaminases with hepatomegaly and intrahepatic biliary ductal dilatation, history of cholecystectomy ? Noted on labs and imaging on 07/21 and 07/23. Saw GI in the office on 07/25 who noted that drug-induced liver injury is possible given mixed cholestatic?hepatocellular pattern with recent use of Augmentin and Tylenol. Notably Tylenol level was less than 2 on 07/25. Plan was for outpatient RUQ ultrasound but given the ongoing abdominal pain with nausea and difficulty with p.o. intake, will order ultrasound now. Continue to monitor daily CMP. 3. Recent total robotic hysterectomy with bilateral salpingectomy ? Had procedure done with Dr. Henry on 07/16. Had visit on 07/25 and on discussions with GI and ED it was felt that patient's current issues are not related to her recent procedure. Chronic medical conditions: ? Class I obesity: BMI 34 on admit. Complicates hospital course, care and prognosis. ? Hypothyroidism: Continue home Synthroid. ? Anxiety: Continue home escitalopram. DVT prophylaxis: Lovenox CODE STATUS: Full code, verified Expected disposition: Home, TBD Total clinical time spent by myself addressing the patient's medical issues, reviewing all the data, and collaborating with patient's care team: 35 minutes. Charges/Coding Visit Charges Inpatient E&M: 23086 Subs Hosp L2
--- NOTE | 2024-07-26 10:35 | CASEMGMT ---
JOSE BELTRE Assessment: Face to Face with pt for initial transition planning/care coordination assessment. JOSE BELTRE introduced self and role at [facility], pt voices understanding and consents to assessment. Pt is A&O x4 and answers all questions appropriately at this time. Pt lying in bed in no distress with at bedside. Care providers, pharmacy, and demographics verified/updated. Admitting Dx: abdominal pain Strata: 2 PCP:Claudette Alexandra Specialists:ARABELLA Costa Preferred Pharmacy:[facility] Insurance:[employer] Prescription Benefit: no LNOK:Bryan Wilcox, Living Arrangements: Pt lives with , son and dtr in a two story home with a couple of steps to enter. Pt reports she is I in ADLs and denies concerns at home. 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 DME:Denies HHC/SNF:Denies hx of Pt states no concerns with going home at time of dc. Pt states no further concerns/needs. CM to follow. Advised pt to ask CM if any further question/concerns/needs arise, voices understanding. Pt Goal:Home Plan:Home Handoff given to JOSE BELTRE MS3
--- NOTE | 2024-07-26 10:35 | CASEMGMT ---
JOSE BELTRE Assessment: Face to Face with pt for initial transition planning/care coordination assessment. JOSE BELTRE introduced self and role at [facility], pt voices understanding and consents to assessment. Pt is A&O x4 and answers all questions appropriately at this time. Pt lying in bed in no distress with at bedside. Care providers, pharmacy, and demographics verified/updated. Admitting Dx: abdominal pain Strata: 2 PCP:Claudette Alexandra Specialists:ARABELLA Costa Preferred Pharmacy:[facility] Insurance:[employer] Prescription Benefit: no LNOK:Bryan Wilcox, Living Arrangements: Pt lives with , son and dtr in a two story home with a couple of steps to enter. Pt reports she is I in ADLs and denies concerns at home. 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 DME:Denies HHC/SNF:Denies hx of Pt states no concerns with going home at time of dc. Pt states no further concerns/needs. CM to follow. Advised pt to ask CM if any further question/concerns/needs arise, voices understanding. Pt Goal:Home Plan:Home Handoff given to JOSE BELTRE MS3
--- NOTE | 2024-07-26 13:48 | US_ITS ---
STUDY: ABDOMINAL ULTRASOUND - RIGHT UPPER QUADRANT REASON FOR VISIT: Female, 49 years old RUQ US for elevated LFTs TECHNIQUE: Ultrasound evaluation of the right upper quadrant was performed with real-time and static paz-scale imaging. TECHNICAL QUALITY: Adequate. COMPARISON: None. FINDINGS: Liver: The liver is enlarged and measures 20.8 cm. There is normal echogenicity of the liver. The bile ducts are within normal limits. There is hepatic color flow. The direction of portal flow is hepatopetal. There is no demonstrated mass lesion. Gallbladder: The patient is status post cholecystectomy. Common Bile Duct (C.B.D.): The common bile duct measures 8 mm. Pancreas: Normal size of the head, body and tail of the pancreas. There is normal echogenicity of the pancreas. There is no demonstrated pancreatic mass or cyst. Right Kidney: Normal size of the right kidney. The right kidney measures 12.9 cm x 6 cm x 4.6 cm. Normal renal cortex. The right cortex measures 1.2 cm. There is no demonstrated renal mass or cyst. There is no right hydronephrosis. US/Abdomen Limited IMPRESSION: Hepatomegaly. Status post cholecystectomy. Electronically Signed: Jack Dinh MD at 15:32 EST ,
--- NOTE | 2024-07-26 13:48 | US_ITS ---
STUDY: ABDOMINAL ULTRASOUND - RIGHT UPPER QUADRANT REASON FOR VISIT: Female, 49 years old RUQ US for elevated LFTs TECHNIQUE: Ultrasound evaluation of the right upper quadrant was performed with real-time and static paz-scale imaging. TECHNICAL QUALITY: Adequate. COMPARISON: None. FINDINGS: Liver: The liver is enlarged and measures 20.8 cm. There is normal echogenicity of the liver. The bile ducts are within normal limits. There is hepatic color flow. The direction of portal flow is hepatopetal. There is no demonstrated mass lesion. Gallbladder: The patient is status post cholecystectomy. Common Bile Duct (C.B.D.): The common bile duct measures 8 mm. Pancreas: Normal size of the head, body and tail of the pancreas. There is normal echogenicity of the pancreas. There is no demonstrated pancreatic mass or cyst. Right Kidney: Normal size of the right kidney. The right kidney measures 12.9 cm x 6 cm x 4.6 cm. Normal renal cortex. The right cortex measures 1.2 cm. There is no demonstrated renal mass or cyst. There is no right hydronephrosis. US/Abdomen Limited IMPRESSION: Hepatomegaly. Status post cholecystectomy. Electronically Signed: Jack Dinh MD at 15:32 EST ,
[2024-07-26] MEDS: Acetaminophen 325 MG Tablet 650 MG PO ×2 (14:03→21:41)
[2024-07-26] MEDS: 0.9% Saline Lock 10 ML Syringe IV ×2 (21:29→21:36)
[2024-07-27 00:14] VITALS: BP 123/74; PULSE 86; RESP 18; TEMP 36.9; O2SAT 97
[2024-07-27 03:13] VITALS: BP 117/62; PULSE 83; RESP 18; TEMP 37.1; O2SAT 96
[2024-07-27] MEDS: Piperacil/Tazobactam 3.375 GM in 0.9% Normal Saline (50mL MB+) 50 ML IV ×3 (04:51→22:22)
[2024-07-27] MEDS: 0.9% Saline Lock 10 ML Syringe IV ×4 (05:10→22:22)
[2024-07-27] MEDS: Morphine 2 MG/ML Syringe IV ×3 (05:10→22:21)
[2024-07-27 07:21] LABS: ALB/GLOB Ratio 0.5 RATIO (0.9-2.4); AST(SGOT) 33 U/L (15-37); Alanine Aminotransfer ALT/SGPT 51 U/L (13-56); Albumin, Serum 2.2 g/dL (3.2-5.0); Alkaline Phosphatase 551 U/L (45-117); Anion Gap 6 (5-15); BUN 6 mg/dL (7-18); Calcium,Total 8.3 mg/dL (8.5-10.1); Chloride 109 mmol/L (98-107); Creatinine, Serum 0.75 mg/dL (0.55-1.02); EST Glomerular Filtration Rate 87 mL/min (>60); Est Glom Filt Rate - Afr Amer 105 mL/min (>60); Estimated Creatinine Clearance 93.33 ml/min; Globulin 4.1 g/dL (2.2-4.2); Glucose 109 mg/dL (74-106); Potassium 3.3 mmol/L (3.5-5.1); Protein, Total 6.3 g/dL (6.4-8.2); Sodium Level 138 mmol/L (136-145)
[2024-07-27] MEDS: Pantoprazole Sodium 40 MG Tablet PO (08:53)
[2024-07-27] MEDS: Acetaminophen 325 MG Tablet 650 MG PO (08:53)
[2024-07-27] MEDS: Potassium Chloride Oral Tablet 20 MEQ 40 MEQ PO (08:54)
[2024-07-27 08:58] VITALS: BP 121/74; PULSE 82; RESP 16; TEMP 37; O2SAT 99
[2024-07-27] MEDS: Ondansetron 4 MG/2 ML Vial IV (09:13)
--- NOTE | 2024-07-27 11:02 | PN.HOSP_ITS ---
Reason for Visit Reason for Visit: Diagnoses Right lower quadrant pain (07/25/24) Nausea with vomiting, unspecified (07/25/24) Fever, unspecified (07/25/24) Abnormal levels of other serum enzymes (07/25/24) Subjective Subjective Saw patient at bedside this morning, present. Patient appeared similar this morning to yesterday. She was laying back in bed comfortably but appeared quite fatigued. Stated that she continued to have generalized abdominal pain and nausea, and had a very hard time keeping anything down. She did have a fever up to 102F overnight. I discussed with them that I do of concern for a possible drug-induced liver injury causing her symptoms, as the gallbladder ultrasound did not show any bile duct issues but continued to show hepatomegaly. She was asking about advancing the diet and I noted it was okay to advance her to a regular diet and she could eat what ever she could tolerate. No other new concerns this morning. Objective Data Objective Data Vital Signs: Vital Signs Temp Pulse Resp BP Pulse Ox O2 Del Method 98.6 F 82 16 121/74 H 99 Room Air 07/27/24 08:58 07/27/24 08:58 07/27/24 08:58 07/27/24 08:58 07/27/24 08:58 07/27/24 08:58 Oxygen Delivery Method Room Air Weight: 87.952 kg Body Mass Index (BMI) 34.3 Intake & Output: Intake and Output for Last 24 Hours 07/25/24 07/26/24 07/27/24 23:59 23:59 23:59 Intake Total 1000 / 1000 1550 / 1550 1083.75 / 1083.75 Balance 1000 / 1000 1550 / 1550 1083.75 / 1083.75 Lab / Micro Data 07/26/24 09:16 07/27/24 05:48 Labs: Laboratory Results - last 24 hr 07/27/24 05:48: Sodium 138, Potassium 3.3 L, Chloride 109 H, Carbon Dioxide 23.0, Anion Gap 6, BUN 6 L, Creatinine 0.75, Estim Creat Clear Calc 93.33, Est GFR (MDRD) Af Amer 105, Est GFR (MDRD) Non-Af 87, BUN/Creatinine Ratio 8.0 L, G lucose 109 H, Calcium 8.3 L, Total Bilirubin 0.70, AST 33, ALT 51, Alkaline Phosphatase 551 H, Total Protein 6.3 L, Albumin 2.2 L, Globulin 4.1, A lbumin/Globulin Ratio 0.5 L Micro: Microbiology 07/26/24 07:30 Stool Stool Lactoferrin - Final 07/26/24 07:30 Stool Enteric Bacteriology - Final 07/25/24 21:19 Mucosa - Nose SARS-CoV-2, Influenza & RSV (PCR) - Final Radiography Diagnostic Testing: Radiology Impression Abdomen Ultrasound 07/26/24 13:48 IMPRESSION: Hepatomegaly. Status post cholecystectomy. Electronically Signed: Jack Dinh MD at 15:32 EST , Physical Exam Const alert, oriented x3 and no apparent distress Constitutional Narrative: Middle-age female, class I obesity, fatigued and mildly uncomfortable appearing due to ongoing nausea, otherwise answering questions appropriately and in no acute distress. Stable. General Appearance: cooperative HEENT normocephalic, head/scalp atraumatic, hearing grossly normal bilaterally and nasal mucous membranes and turbinates normal Eyes PERRL, EOMs intact bilaterally and conjunctivae normal Neck full ROM Chest inspection of chest normal Resp normal respiratory effort, normal air movement, no use of accessory muscles and clear to auscultation bilaterally Cardio regular rate, regular rhythm, no murmurs and peripheral pulses 2+ throughout GI GI Narrative: Abdomen mildly tender to palpation diffusely but otherwise soft and nondistended. Stable. Back/Spine normal ROM Extremity normal to inspection, full ROM and no pedal edema Skin no rashes or lesions noted Psych mental status grossly normal Psych Narrative: Flat affect. Assessment & Plan Assessment/Plan (1) RLQ abdominal pain: (2) Elevated liver enzymes: (3) Fever: (4) Nausea & vomiting: PLAN: Plan Patient is a 49-year-old female who presented [facility] ED on 07/25/2024 with persistent abdominal pain and fever/chills. 1. Persistent abdominal pain with nausea/vomiting and fever/chills, elevated transaminases with concern for drug induced liver injury, inflammation of distal and terminal ileum, history of cholecystectomy ? Patient with recent hysterectomy on 07/16 as noted below. Developed worsening abdominal pain 2 to 3 days postop. Had 2 ED visits on 07/21 and 07/23 for this; CT abdomen pelvis x 2 showed hepatomegaly and central intrahepatic biliary ductal dilatation, and LFTs were elevated. Saw GI in the office on 07/25 who noted that drug-induced liver injury is possible given mixed cholestatic?hepatocellular pattern with recent use of Augmentin and Tylenol. Notably Tylenol level was less than 2 on 07/25. Gallbladder ultrasound on 07/26 showed hepatomegaly but no concerning bile duct findings. ? Given continued pain with fevers/chills on this admission, had CT abdomen pelvis with p.o. and IV contrast on 07/26 that showed evidence of inflammatory change involving the terminal ileum and distal ileal loops. Discussed with general surgery who is suspected this was most likely due to infection; importantly no concern for appendicitis. Enteric panel negative and stool lactoferrin negative. Was started on IV Zosyn on 07/26 but has continued to have intermittent fevers. ? Highest suspicion currently is for drug-induced liver injury as the driving factor for patient's ongoing abdominal pain and nausea with poor p.o. intake. Suspect RLQ infection is also contributing. On literature review, unclear if steroids are helpful for DILI but given patient's lack of improvement, will treat empirically with 4 doses of IV Solu-Medrol. If patient does not have much improvement, will plan for GI consult for further evaluation in the next 1 to 2 days. Patient okay for regular diet as tolerated. Monitor daily CMP. 2. Recent total robotic hysterectomy with bilateral salpingectomy ? Had procedure done with Dr. Henry on 07/16. Had visit on 07/25 and on discussions with GI and ED it was felt that patient's current issues are not related to her recent procedure. Chronic medical conditions: ? Class I obesity: BMI 34 on admit. Complicates hospital course, care and prognosis. ? Hypothyroidism: Continue home Synthroid. ? Anxiety: Continue home escitalopram. DVT prophylaxis: Lovenox CODE STATUS: Full code, verified Expected disposition: Home, TBD Total clinical time spent by myself addressing the patient's medical issues, reviewing all the data, and collaborating with patient's care team: 35 minutes. Charges/Coding Visit Charges Inpatient E&M: 55279 Subs Hosp L2
[2024-07-27 14:00] VITALS: BP 116/71; PULSE 77; RESP 18; TEMP 36.6; O2SAT 97
[2024-07-27 20:53] VITALS: BP 130/77; PULSE 66; RESP 15; TEMP 36.6; O2SAT 96
[2024-07-27] MEDS: DiphenhydrAMINE 25 MG Capsule PO (22:21)
[2024-07-27 23:16] VITALS: BP 136/84; PULSE 65; RESP 16; TEMP 36.6; O2SAT 95
[2024-07-28] MEDS: 0.9% Saline Lock 10 ML Syringe IV (05:01)
[2024-07-28] MEDS: Piperacil/Tazobactam 3.375 GM in 0.9% Normal Saline (50mL MB+) 50 ML IV (05:01)
[2024-07-28 05:05] VITALS: BP 122/81; PULSE 68; RESP 16; TEMP 36.6; O2SAT 97
[2024-07-28 05:07] VITALS: BMI 34.1
[2024-07-28 06:07] LABS: Hematocrit 33.3 % (37-47); Hemoglobin 10.9 g/dL (12.0-15.0); Mean Corp Hgb Conc 32.7 g/dL (32-36); Mean Corpuscular Volume 85.6 fL (81-99); Mean Platelet Vol. 9.4 fl (6.2-12.0); Platelet Count 347 K/mm3 (150-450); Red Blood Count 3.89 M/mm3 (4.2-5.4); White Blood Count 15.8 K/mm3 (4.4-11.0)
[2024-07-28 06:53] LABS: ALB/GLOB Ratio 0.5 RATIO (0.9-2.4); AST(SGOT) 19 U/L (15-37); Alanine Aminotransfer ALT/SGPT 45 U/L (13-56); Albumin, Serum 2.4 g/dL (3.2-5.0); Alkaline Phosphatase 561 U/L (45-117); Anion Gap 7 (5-15); BUN 7 mg/dL (7-18); BUN/Creat Ratio 12.2 RATIO (10-20); Chloride 107 mmol/L (98-107); Creatinine, Serum 0.58 mg/dL (0.55-1.02); EST Glomerular Filtration Rate 117 mL/min (>60); Est Glom Filt Rate - Afr Amer 142 mL/min (>60); Estimated Creatinine Clearance 120.29 ml/min; Globulin 4.7 g/dL (2.2-4.2); Glucose 150 mg/dL (74-106); Potassium 3.8 mmol/L (3.5-5.1); Protein, Total 7.1 g/dL (6.4-8.2); Sodium Level 139 mmol/L (136-145)
[2024-07-28 07:55] VITALS: BP 133/80; PULSE 70; RESP 18; TEMP 36.7; O2SAT 98
--- NOTE | 2024-07-28 10:11 | DS.PCM_ITS ---
Providers Date of Admission: 07/25/24 Date of Discharge: 07/28/24 Primary Care Physician: RONI Robertson Reason For Visit: ABDOMINAL PAIN Diagnosis Discharge Diagnosis (1) RLQ abdominal pain: Status: Acute Code(s): R10.31 - Right lower quadrant pain (2) Elevated liver enzymes: Status: Acute Code(s): R74.8 - Abnormal levels of other serum enzymes (3) Fever: Status: Acute Code(s): R50.9 - Fever, unspecified (4) Nausea & vomiting: Status: Acute Code(s): R11.2 - Nausea with vomiting, unspecified Medications at Discharge Home Medications cholecalciferol (vitamin D3) 50 mcg (2,000 unit) capsule (Vitamin D3) 50 mcg PO DAILY bone 11/05/21 vitamin A 2,400 mcg capsule 2,400 mcg PO DAILY health 11/05/21 escitalopram oxalate 20 mg tablet (Lexapro) 20 mg PO QDAY anxiety 04/18/24 FACTOR 5 clotting 07/02/24 levothyroxine 50 mcg tablet 50 mcg PO DAILY thyroid 07/25/24 ciprofloxacin HCl 500 mg tablet 500 mg PO BID 3 days #6 tabs 07/28/24 metronidazole 500 mg tablet 500 mg PO BID 3 days #6 tabs 07/28/24 prednisone 20 mg tablet 40 mg (2 x 20 mg) PO DAILY 3 days #6 tabs 07/28/24 Hospital Course Operations None Procedures EKG and - (CT brain, CT chest abdomen pelvis, CT abdomen pelvis, RUQ ultrasound) Summary of Care Provided Minutes Spent on Discharge: 35 Hospital Course: Patient is a 49-year-old female who presented [facility] ED on 07/25/2024 with persistent abdominal pain and fever/chills. Hospital course as noted below. Patient discharged home in stable condition on 07/28. 1. Persistent abdominal pain with nausea/vomiting and fever/chills, elevated transaminases with concern for drug induced liver injury, inflammation of distal and terminal ileum, history of cholecystectomy ? Patient with recent hysterectomy on 07/16 as noted below. Developed worsening abdominal pain 2 to 3 days postop. Had 2 ED visits on 07/21 and 07/23 for this; CT abdomen pelvis x 2 showed hepatomegaly and central intrahepatic biliary ductal dilatation, and LFTs were elevated. Saw GI in the office on 07/25 who noted that drug-induced liver injury is possible given mixed cholestatic?hepatocellular pattern with recent use of Augmentin and Tylenol. Notably Tylenol level was less than 2 on 07/25. Gallbladder ultrasound on 07/26 showed hepatomegaly but no concerning bile duct findings. ? Given continued pain with fevers/chills on this admission, had CT abdomen pelvis with p.o. and IV contrast on 07/26 that showed evidence of inflammatory change involving the terminal ileum and distal ileal loops. Discussed with general surgery who suspected this was most likely due to infection; importantly no concern for appendicitis. Enteric panel negative and stool lactoferrin negative. Was started on IV Zosyn on 07/26 but continued to have intermittent fevers. ? Highest suspicion was for drug-induced liver injury as the driving factor for patient's ongoing abdominal pain and nausea with poor p.o. intake. Suspect RLQ infection is also contributing. On literature review, unclear if steroids are helpful for DILI but given patient's lack of improvement, treated empirically with 4 doses of IV Solu-Medrol. Patient had resolution of fevers and significant improvement in pain and appetite by 07/28. Was tolerating regular diet. ? Discharged home on Cipro and Flagyl for 3 more days to complete course of antibiotics, as well as on prednisone 40 mg daily for 3 more days. Recommended patient utilize ibuprofen only sparingly as needed for pain control. Continue to avoid Tylenol for now. Recommended patient call the GI office to schedule a follow-up appointment in the next few weeks. 2. Recent total robotic hysterectomy with bilateral salpingectomy ? Had procedure done with Dr. Henry on 07/16. Had visit on 07/25 and on discussions with GI and ED it was felt that patient's current issues are not related to her recent procedure. Chronic medical conditions: ? Class I obesity: BMI 34 on admit. Complicates hospital course, care and prognosis. ? Hypothyroidism: Continue home Synthroid. ? Anxiety: Continue home escitalopram. Total clinical time spent by myself addressing the patient's medical issues, reviewing all the data, and collaborating with patient's care team: 35 minutes. Physical Exam Const alert, oriented x3 and no apparent distress Constitutional Narrative: Middle-age female, class I obesity, energy much improved from admission and patient sitting up comfortably in bed, conversing normally, in no acute distress. General Appearance: cooperative HEENT normocephalic, head/scalp atraumatic, hearing grossly normal bilaterally and nasal mucous membranes and turbinates normal Eyes PERRL, EOMs intact bilaterally and conjunctivae normal Neck full ROM Chest inspection of chest normal Resp normal respiratory effort, normal air movement, no use of accessory muscles and clear to auscultation bilaterally Cardio regular rate, regular rhythm, no murmurs and peripheral pulses 2+ throughout GI normal to inspection, nondistended, normoactive bowel sounds, soft to palpation, non-tender and non-distended Back/Spine normal ROM Extremity normal to inspection, full ROM and no pedal edema Skin no rashes or lesions noted Psych mental status grossly normal Weight / BMI Weight Weight: 87.4 kg Body Mass Index (BMI) 34.1 ABG / Lab / Microbiology Data 07/28/24 05:50 07/28/24 05:50 Laboratory: Laboratory Results - last 24 hr 07/28/24 05:50: WBC 15.8 H, RBC 3.89 L, Hgb 10.9 L, Hct 33.3 L, MCV 85.6, MCH 28.0, MCHC 32.7, RDW Std Deviation 40.0, RDW Coeff of Willie 13.0, Plt Count 347, MPV 9.4, Sodium 139, Potassium 3.8, Chloride 107, Carbon Dioxide 25.0, Anion Gap 7, BUN 7, Creatinine 0.58, Estim Creat Clear Calc 120.29, Est GFR (MDRD) Af Amer 142, Est GFR (MDRD) Non-Af 117, BUN/Creatinine Ratio 12.2, Glucose 150 H, Calcium 9.0, Total Bilirubin 0.30, AST 19, ALT 45, Alkaline Phosphatase 561 H, Total Protein 7.1, Albumin 2.4 L, Globulin 4.7 H, Albumin/Globulin Ratio 0.5 L Microbiology: Microbiology 07/25/24 21:12 Blood Culture (Wb) - Anticubital Left Blood Culture - Preliminary No growth in 48 hours. 07/25/24 21:19 Blood Culture (Wb) - Anticubital Right Blood Culture - Preliminary No growth in 48 hours. 07/26/24 07:30 Stool Stool Lactoferrin - Final 07/26/24 07:30 Stool Enteric Bacteriology - Final 07/25/24 21:19 Mucosa - Nose SARS-CoV-2, Influenza & RSV (PCR) - Final D/C Instructions DC O2, CPAP, BIPAP Needs Home O2 Discharge instructions: No Meaningful Use Info Meaningful Use Meaningful Use Diagnoses (Choose all that apply): None applicable Ischemic Stroke Statin Dosing Therapy Reference: STATIN DOSE THERAPY REFERENCE: * Patients > 75 years receive moderate or high dose statin therapy. * Patients 75 years or YOUNGER should receive HIGH intensity statin dose unless contraindicated. You will be required to document reason for non-treatment if statin daily dose does not meet guidelines. HIGH DOSE STATIN THERAPY DAILY Atorvastatin > than or = to 40 mg Rosuvastatin > than or = to 20 mg Amlodipine + Atorvastatin > than or = to 2.5/40 mg Ezetimibe + Simvastatin 10/80 mg Simvastatin 80mg Discharge Plan Admission Admit Date/Time: 07/25/24 23:32 Primary Reason for Your Visit: abdominal pain with nausea and vomiting Attending Provider: Lauro Mckenna Primary Care Provider: Claudette Alexandra Consulting Providers: Qamar Whelan Instructions Additional Instructions / Restrictions: ? Take ciprofloxacin and metronidazole twice daily for 3 more days to complete course of antibiotics. ? Take prednisone 40 mg (2 tablets) daily for 3 more days to complete course of steroids. ? Use ibuprofen only sparingly at home for pain control. Please avoid using Tylenol for now. ? Call the GI office to schedule a follow-up appointment in the next few weeks. Discharge Orders/Prescriptions Prescriptions: New ciprofloxacin HCl 500 mg tablet 500 mg PO BID 3 Days Qty: 6 0RF metronidazole 500 mg tablet 500 mg PO BID 3 Days Qty: 6 0RF prednisone 20 mg tablet 40 mg PO DAILY 3 Days Qty: 6 0RF Continued escitalopram oxalate [Lexapro] 20 mg tablet 20 mg PO QDAY vitamin A 2,400 mcg Capsule 2,400 mcg PO DAILY cholecalciferol (vitamin D3) [Vitamin D3] 50 mcg (2,000 unit) Capsule 50 mcg PO DAILY levothyroxine 50 mcg tablet 50 mcg PO DAILY Held FACTOR 5 Hold Instructions: Resume on 08/16/24. Do not use for 1 month postop Discontinued ibuprofen 800 mg tablet 800 mg PO Q8H Qty: 30 0RF oxycodone 10 mg tablet 10 mg PO Q6H PRN (Reason: pain) 7 Days Qty: 28 0RF Referrals / Follow Up: Leonel Siddiqi DO [Med Staff - Active Staff] - Alexandra,Claudette PA, PA [Primary Care Provider] - Disposition Disposition (needs filled in before D/C Order can be placed): Home, Self Care Charges/Coding Visit Charges Inpatient E&M: 47290 Disch Hosp >30min
[2024-07-28] MEDS: Pantoprazole Sodium 40 MG Tablet PO (10:23)
[2024-07-30 14:07] LABS: Calprotectin, Stool 5 ug/g (0-120)
== END 2024-07-28 11:35 | disposition home or self-care (01) | DRG 442 ==
LOC: ED 21:19 → MS3 07-26 00:13
PROVIDERS: Admitting Provider Family Medicine; Emergency Provider Emergency Medicine; PCP Physician Assistant; Visit Provider Hospitalist
DX: K71.0 Toxic liver disease with cholestasis (principal); K52.1 Toxic gastroenteritis and colitis; E03.9 Hypothyroidism, unspecified; Z68.34 Body mass index [BMI] 34.0-34.9, adult; F41.9 Anxiety disorder, unspecified; T36.0X5A Adverse effect of penicillins, initial encounter; T39.1X5A Adverse effect of 4-Aminophenol derivatives, initial encounter; R16.0 Hepatomegaly, not elsewhere classified; E66.811 Obesity, class 1; Z90.49 Acquired absence of other specified parts of digestive tract; Z90.710 Acquired absence of both cervix and uterus; Z90.79 Acquired absence of other genital organ(s); Z79.890 Hormone replacement therapy; Z79.899 Other long term (current) drug therapy
CPT/HCPCS: 36415; 70450; 71260; 74177; 76705; 80048; 80053; 80076; 80143; 80179; 81001; 83605; 83630; 83690; 83993; 85025; 85027; 85610; 87040; 87506; 87631; 93005; 99285; J7030; Q9967; A4216; J2405

== ENCOUNTER → 2024-07-25 | Outpatient (CLI) | payer OTHER, SELFPAY ==
[2024-07-25 13:03] LABS: Absolute Lymphocyte Count 0.96 X10^3/uL (0.83-4.51); Basophil# 0.04 X10^3/uL; Basophil% 0.3 % (0-1); Eosinophil# 0.24 X10^3/uL; Eosinophils% 2.1 % (0-5); Hematocrit 35.1 % (37-47); Hemoglobin 11.1 g/dL (12.0-15.0); Lymphocyte # 0.96 X10^3/ul (0.83-4.51); Lymphocyte % 8.4 % (19-41); Mean Corp Hgb Conc 31.6 g/dL (32-36); Mean Corpuscular Volume 88.6 fL (81-99); Mean Platelet Vol. 9.3 fl (6.2-12.0); Monocyte# 1.01 X10^3/uL; Monocyte% 8.8 % (0-10); NRBC Flagged by Analyzer 0 % (0-5); Neutrophil % 78.8 % (47-70); Platelet Count 319 K/mm3 (150-450); RBC Distribution Width CV 12.7 % (11.6-14.6); RBC Distribution Width SD 41.2 fl (35.1-43.9); Red Blood Count 3.96 M/mm3 (4.2-5.4); White Blood Count 11.4 K/mm3 (4.4-11.0)
[2024-07-25 13:26] LABS: ALB/GLOB Ratio 0.6 RATIO (0.9-2.4); AST(SGOT) 63 U/L (15-37); Alanine Aminotransfer ALT/SGPT 86 U/L (13-56); Albumin, Serum 2.9 g/dL (3.2-5.0); Alkaline Phosphatase 522 U/L (45-117); Anion Gap 2 (5-15); BUN 18 mg/dL (7-18); BUN/Creat Ratio 24.2 RATIO (10-20); Calcium,Total 9.2 mg/dL (8.5-10.1); Chloride 105 mmol/L (98-107); Creatinine, Serum 0.74 mg/dL (0.55-1.02); EST Glomerular Filtration Rate 87 mL/min (>60); Est Glom Filt Rate - Afr Amer 105 mL/min (>60); Globulin 4.6 g/dL (2.2-4.2); Glucose 101 mg/dL (74-106); Potassium 3.8 mmol/L (3.5-5.1); Protein, Total 7.5 g/dL (6.4-8.2); Sodium Level 137 mmol/L (136-145)
[2024-07-25 13:30] LABS: Acetaminophen (Tylenol) Level < 2.0 ug/mL (10.0-30.0)
[2024-07-25 13:35] LABS: Prothrombin Time (Protime)PT. 12.9 SECONDS (11.7-14.9)
== END | disposition home or self-care (01) ==
LOC: LAB 12:22
PROVIDERS: PCP Physician Assistant; Referring Provider Obstetrics & Gynecology; Visit Provider Obstetrics & Gynecology
DX: R10.9 Unspecified abdominal pain (principal); R50.9 Fever, unspecified; R79.89 Other specified abnormal findings of blood chemistry; E03.9 Hypothyroidism, unspecified; Z90.710 Acquired absence of both cervix and uterus
CPT/HCPCS: 36415; 80053; 80143; 84443; 85025; 85610

== ENCOUNTER 2024-08-06 13:55 | Day surgery (SDC) | payer SELFPAY, OTHER ==
[2024-08-06] VITALS (8 sets, daily range): BP systolic 106–125; BP diastolic 66–93; PULSE 68–84; RESP 16–18; TEMP 36.1–36.5; O2SAT 97–100; BMI 32.8
--- NOTE | 2024-08-06 15:10 | PCM.PRE.AN2 ---
ASA Classification* ASA Classification ASA Classification: 2 Assessment & Plan Anesthesia* Anesthesia Assessment Anesthesia Assessment: Discussed sedation and/or anesthesia options, risks, benefits, and alternatives with patient/parents/legal guardian/POA. Questions invited. The patient/parents/legal guardian/POA seems to understand and agrees to proceed with anesthesia plan. Reviewed the physical assessment, medical history, allergy history and patient home medications list prior to surgery/procedure/anesthetic and documented any changes. Performed airway and anesthesia risk assessments. Anesthesia Type Anesthesia Type: MAC Anesthesia Focused Assessment* Temperature: 97.7 F Pulse Rate: 84 Blood Pressure: 116/93 Respiratory Rate: 18 Pulse Ox: 100 Airway Assessment Mouth opens: >3 cm Mallampati Score: II Focused Labs Anesthesia Preop lab: CBC WBC 15.8 K/mm3 (4.4-11.0) H 07/28/24 05:50 RBC 3.89 M/mm3 (4.2-5.4) L 07/28/24 05:50 Hgb 10.9 g/dL (12.0-15.0) L 07/28/24 05:50 Hct 33.3 % (37-47) L 07/28/24 05:50 Plt Count 347 K/mm3 (150-450) 07/28/24 05:50 CHEMISTRY Potassium 3.8 mmol/L (3.5-5.1) 07/28/24 05:50 Sodium 139 mmol/L (136-145) 07/28/24 05:50 Magnesium 2.5 mg/dL (1.6-2.6) 07/16/24 06:20 BUN 7 mg/dL (7-18) 07/28/24 05:50 Creatinine 0.58 mg/dL (0.55-1.02) 07/28/24 05:50 Glucose 150 mg/dL (74-106) H 07/28/24 05:50 TSH 3.620 uIU/mL (0.358-3.740) 07/25/24 12:56 COAG PT 13.8 SECONDS (11.7-14.9) 07/25/24 21:12 Urine Test Negative Negative 07/16/24 06:05 Pre-Assessment Diagnosis/Proposed Procedure Planned Operative Procedure(s): EGD, COLONOSCOPY Anesthesia History 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 When Was Last Pacemaker Check QUESTION #4 FULL TEXT: You/Your Family Experience fever (hyperthermia) with Anesthesia Last Oral Intake Last Oral intake: Last Oral Intake NPO since 12:00 08/06/24 14:22 Meds taken in AM with sips of No 08/06/24 14:22 water? Meds patient instructed to take am of surgery PONV PONV - stock control clerk: PONV - stock control clerk Female Yes 08/02/24 13:09 HX of Motion Sickness No 08/02/24 13:09 HX of N/V After Surgery Yes 08/02/24 13:09 Non-Smoker Yes 08/02/24 13:09 Duration of Surgery greater No 08/02/24 13:09 than 60 minutes Number of Risk Factors 3 08/02/24 13:09 PONV Score Moderate Risk 08/02/24 13:09 Height & Weight Height & Weight: Anesthesia: Height & Weight Height 5 ft 3 in 08/06/24 14:22 Weight: 84 kg 08/06/24 14:22 Body Mass Index (BMI) 32.8 08/06/24 14:22 Respiratory Assessment Respiratory Assessment - stock control clerk: Respiratory Tract Infection Hx - stock control clerk Hx Respiratory Tract Infection No 08/02/24 13:09 STOP Sleep Apnea STOP Sleep Apnea - stock control clerk: STOP Sleep Apnea - stock control clerk Hx Hypertension No 08/02/24 13:09 Hx Sleep Apnea No 08/02/24 13:09 CPAP BIPAP Do you snore loudly (louder No 08/02/24 13:09 than talking or can be heard Do you often feel tired/ No 08/02/24 13:09 fatigued/ sleepy during daytime? Has anyone observed you stop No 08/02/24 13:09 breathing during sleep? STOP Results Negative 08/02/24 13:09 QUESTION #5 FULL TEXT : Do you snore loudly (louder than talking or can be heard through closed doors)? 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 Specify any problems Hx of Preganancy in last 3 No 08/02/24 13:09 Months Nurse Filling Out Transfusion VLEHROBERTSON 08/02/24 13:09 & Questions: Date: 08/02/24 08/02/24 13:09 Time: 13:11 08/02/24 13:09 Patient unable to answer at this time (ie. confused, unrespo /Reproduction History /Reproductive History - stock control clerk: /Reproductive Hx- stock control clerk Hx Now No 08/02/24 13:09 Gestational Age (in weeks): EDC: Hx Hx Para Hx Section SAB No 08/02/24 13:09 [facility] Medical History Depression PONV (postoperative nausea and vomiting) Wears glasses Wears dentures Thyroid disease Arthritis Anemia Restless legs Syncope History of IBS Non-smoker History of edema History of rheumatic fever Home Medications ?Medication ?Instructions ?Recorded ?Last Taken ?Type cholecalciferol (vitamin D3) 50 50 mcg PO DAILY bone 11/05/21 Unknown History mcg (2,000 unit) capsule (Vitamin D3) vitamin A 2,400 mcg capsule 2,400 mcg PO DAILY health 11/05/21 Unknown History escitalopram oxalate 20 mg tablet 20 mg PO QDAY anxiety 04/18/24 07/16/24 04:30 History (Lexapro) levothyroxine 50 mcg tablet 50 mcg PO DAILY thyroid 07/25/24 Unknown History Allergy/AdvReac Type Severity Reaction Status Date / Time codeine Allergy Mild Nausea Verified 08/06/24 14:21 adhesive tape (surgical tape) Allergy Rash Verified 08/06/24 14:21 amoxicillin (From Augmentin) AdvReac Severe drug Verified 08/06/24 14:21 induced liver injury clavulanic acid (From AdvReac Severe drug Verified 08/06/24 14:21 Augmentin) induced liver injury Family History Father Cancer Throat Surgical History History of hysterectomy S/P endometrial ablation History of mandibular surgery S/P knee surgery History of back surgery Hx laparoscopic cholecystectomy History of Social History household members: spouse current occupational status: unemployed Smoking Status: Never smoker alcohol intake: never substance use type: does not use seatbelt use: always do you feel safe at home: Yes additional social history: - [employer] Review of Systems (Anesthesia) ROS Narrative System reviewed and no additional complaints, except as documented.
--- NOTE | 2024-08-06 15:15 | EGD_PTH ---
PATIENT: JENNIFER العراقي LOC: EN U#:[id number] AGE/SX: 49/F ROOM: RE08/06/[address]: Dr. Leonel Siddiqi DO : 1975 BED: DIS: 08/06/2024 SPEC #: [id number] RECD: 08/08/24 07:37 STATUS: THAI PAKO #: [id number] MARILYN: 08/06/24 15:[address]: Leonel Siddiqi DEPT: SURGICAL PATHOLOGY RECD BY: Helen Brewer ENTERED: 08/08/24 07:38 SP TYPE: EGD BIOPSY OTHR DR: RONI Robertson Tissues: A - Gastric mucous membrane B - Duodenum, NOS C - COLON BIOPSY Procedures: Surgery Specimen Level IV HEADER OPERATION: Colonoscopy, EGD, biopsy PRE-OP DIAGNOSIS: Right lower quadrant abdominal pain, elevated liver enzymes, fever, nausea/vomiting TISSUE SUBMITTED: A- Gastric antrum biopsy, B- Duodenum biopsy, C- Random colon biopsy MICROSCOPIC DIAGNOSIS A. Gastric antrum, biopsy: Mild gastritis. See microscopic description and comment. B. Duodenum, biopsy: Fragments of duodenal mucosa, no pathologic diagnosis. C. Colon, random biopsy: Fragments of colonic mucosa with numerous pigment laden macrophages consistent with melanosis coli. Mild to moderate non-specific chronic inflammation. See comment. 08/09/2024 COMMENT A. The results of immunohistochemistry for Helicobacter pylori will be reported separately ([id number]). Correlation with clinical, endoscopic findings and appropriate follow up are necessary. MICROSCOPIC DESCRIPTION Slides are reviewed. A. The specimen shows fragments of gastric mucosa with chronic inflammatory cell infiltrates in the lamina propria consisting of lymphocytes and plasma cells, consistent with mild chronic gastritis. GROSS DESCRIPTION A. Received in fixative is one container labeled with the patient's name and designated Gastric antrum biopsy. The specimen consists of two irregular fragments of light [place] soft tissue that in aggregate measure 0.6 x 0.6 x 0.1 cm. The specimen is totally submitted in one cassette. B. Received in fixative is one container labeled with the patient's name and designated Duodenum biopsy. The specimen consists of two irregular fragments of light [place] soft tissue that in aggregate measure 0.6 x 0.3 x 0.1 cm. The specimen is totally submitted in one cassette. C. Received in fixative is one container labeled with the patient's name and designated Random colon biopsy. The specimen consists of multiple irregular fragments of light [place] soft tissue that in aggregate measure 1.0 x 1.0 x 0.1 cm. The specimen is totally submitted in one cassette. SJ 08/08/2024 TC:5 CPT:86938k7
--- NOTE | 2024-08-06 15:15 | IMM_PTH ---
PATIENT: JENNIFER العراقي LOC: EN U#:[id number] AGE/SX: 49/F ROOM: RE08/06/[address]: Dr. Leonel Siddiqi DO : 1975 BED: DIS: 08/06/2024 SPEC #: [id number] RECD: 08/08/24 10:28 STATUS: THAI REJosee #: [id number] MARILYN: 08/06/24 15:[address]: Leonel Siddiqi DEPT: IMMUNOHISTOCHEMISTRY RECD BY: Loi Avalos ENTERED: 08/08/24 10:29 SP TYPE: IMMUNO OTHR DR: RONI Robertson Tissues: A - Gastric mucous membrane Procedures: H Pylori (initial) PHYSICIAN & INSTITUTION [place] [address] SPECIMEN INFORMATION: Tissue Source: A- Gastric antrum biopsy Clinical Info: Right lower quadrant abdominal pain, elevated liver enzymes, fever, nausea/vomiting Specimen Number: [id number] CPT code: 58857 METHODOLOGY: Deparaffinized sections of prefer/formalin-fixed tissue or PAP/DQ stained slides are incubated with monoclonal/polyclonal antibodies/oligonucleotide probes. Localization is made via biotin free immunoperoxidase method. Appropriate controls are performed and reacted as expected. Results on target cell population are indicated in the following table: RESULTS: ANTIBODY / CLONE RESULT Block A H Pylori (polyclonal) negative These tests were developed and their performance characteristics determined by [facility]. They may not have been cleared or approved by the U.[place]. Food and Drug Administration. The FDA has determined that such clearance or approval is not necessary. The above immunohistochemical/dualISH markers are ordered and reviewed by the Pathologist. INTERPRETATION: A. Gastric antrum, biopsy: Negative for Helicobacter pylori organisms. 08/09/2024
--- NOTE | 2024-08-06 15:53 | PCM.HP.STD ---
HPI - General General Date of Admission: 08/06/24 Date of Service: 08/06/24 Chief Complaint: abdominal pain with nausea, vomiting and diarrhea HPI Narrative JENNIFER العراقي, is a 49 F who presentsMARSam العراقي, is a 49-year-old female who presented [facility] ED on 07/25/2024 with persistent abdominal pain and fever/chills. Patient was having persistent abdominal pain with nausea/vomiting and fever/chills, elevated transaminases with concern for drug induced liver injury, inflammation of distal and terminal ileum, history of cholecystectomy. She recent hysterectomy on 07/16. Developed worsening abdominal pain 2 to 3 days postop. She had 2 ED visits on 07/21 and 07/23 for this; CT abdomen pelvis x 2 showed hepatomegaly and central intrahepatic biliary ductal dilatation, and LFTs were elevated. She saw GI in the office on 07/25 who noted that drug-induced liver injury is possible given mixed cholestatic?hepatocellular pattern with recent use of Augmentin and Tylenol. Her Tylenol level was less than 2 on 07/25. Gallbladder ultrasound on 07/26 showed hepatomegaly but no concerning bile duct findings. She continued pain with fevers/chills on this admission, had CT abdomen pelvis with p.o. and IV contrast on 07/26 that showed evidence of inflammatory change involving the terminal ileum and distal ileal loops. Discussed with general surgery who suspected this was most likely due to infection; importantly no concern for appendicitis. Enteric panel negative and stool lactoferrin negative. She was started on IV Zosyn on 07/26 but continued to have intermittent fevers. The highest suspicion was for drug-induced liver injury as the driving factor for patient's ongoing abdominal pain and nausea with poor p.o. intake. Suspect RLQ infection is also contributing. On literature review, unclear if steroids are helpful for DILI but given patient's lack of improvement, she was treated empirically with 4 doses of IV Solu-Medrol. Patient had resolution of fevers and significant improvement in pain and appetite by 07/28. She was discharged home on Cipro and Flagyl for 3 more days to complete course of antibiotics, as well as on prednisone 40 mg daily for 3 more days. She recently total robotic hysterectomy with bilateral salpingectomy done with Dr. Henry on 07/16. The pathology - uterus, cervix, bilateral fallopian tubes, hysterectomy with bilateral salpingectomy: Moderately differentiated adenocarcinoma, favor cervical carcinoma, HPV independent, gastric type. She will need to undergo and egd and colonoscopy and an MRCP to look at hepatobiliarypancreatic system [facility] Medical History Depression PONV (postoperative nausea and vomiting) Wears glasses Wears dentures Thyroid disease Arthritis Anemia Restless legs Syncope History of IBS Non-smoker History of edema History of rheumatic fever Home Medications ?Medication ?Instructions ?Recorded ?Last Taken ?Type cholecalciferol (vitamin D3) 50 50 mcg PO DAILY bone 11/05/21 Unknown History mcg (2,000 unit) capsule (Vitamin D3) vitamin A 2,400 mcg capsule 2,400 mcg PO DAILY health 11/05/21 Unknown History escitalopram oxalate 20 mg tablet 20 mg PO QDAY anxiety 04/18/24 07/16/24 04:30 History (Lexapro) levothyroxine 50 mcg tablet 50 mcg PO DAILY thyroid 07/25/24 Unknown History Allergy/AdvReac Type Severity Reaction Status Date / Time codeine Allergy Mild Nausea Verified 08/06/24 14:21 adhesive tape (surgical tape) Allergy Rash Verified 08/06/24 14:21 amoxicillin (From Augmentin) AdvReac Severe drug Verified 08/06/24 14:21 induced liver injury clavulanic acid (From AdvReac Severe drug Verified 08/06/24 14:21 Augmentin) induced liver injury Family History Father Cancer Throat Surgical History History of hysterectomy S/P endometrial ablation History of mandibular surgery S/P knee surgery History of back surgery Hx laparoscopic cholecystectomy History of Social History household members: spouse current occupational status: unemployed Smoking Status: Never smoker alcohol intake: never substance use type: does not use seatbelt use: always do you feel safe at home: Yes additional social history: - Stephen GILLETTE Constitutional Constitutional: Reports chills and fever(s); Denies fatigue or malaise Eyes Eyes: Denies blurry vision ENT HEENT: Denies headache(s) or nasal discharge Cardiovascular Cardiovascular: Denies chest pain, dyspnea on exertion or syncope Respiratory/Chest Respiratory/Chest: Denies cough, shortness of breath at rest or shortness of breath with exertion Gastrointestinal Gastrointestinal: Reports abdominal pain, diarrhea, nausea and vomiting; Denies constipation Genitourinary Genitourinary: Denies dysuria Neurologic Neurologic: Denies focal weakness, numbness or tremor(s) Psychiatric Psychiatric: Denies anxiety or depression Vital Signs Vital Signs Vital Signs: 08/06/24 14:22 08/06/24 14:22 08/06/24 15:11 Temperature 97.7 F L 97.7 F L Temperature Source Temporal Pulse Rate 84 84 Respiratory Rate 18 18 Respiratory Pattern Normal Blood Pressure 116/93 H 116/93 H Blood Pressure Mean 100 Blood Pressure Source Monitor Blood Pressure Position Semi-Fowlers Blood Pressure Location Left Arm Pulse Ox 100 100 Oxygen Delivery Method Room Air Weight Weight: 185 lb 3.013 oz Body Mass Index (BMI) 32.8 Physical Exam Const alert, oriented x3 and no apparent distress General Appearance: cooperative HEENT normocephalic, head/scalp atraumatic, hearing grossly normal bilaterally and nasal mucous membranes and turbinates normal Eyes PERRL, EOMs intact bilaterally and conjunctivae normal Neck full ROM Chest inspection of chest normal Resp normal respiratory effort, normal air movement, no use of accessory muscles and clear to auscultation bilaterally Cardio regular rate, regular rhythm, no murmurs and peripheral pulses 2+ throughout GI normal to inspection, nondistended, normoactive bowel sounds, soft to palpation, non-tender and non-distended Back/Spine normal ROM Extremity normal to inspection, full ROM and no pedal edema Skin no rashes or lesions noted Psych mental status grossly normal Assessment & Plan Assessment/Plan (1) RLQ abdominal pain: (2) Elevated liver enzymes: (3) Fever: (4) Nausea & vomiting: PLAN: Plan Patient is a 49-year-old female who presented [facility] ED on 07/25/2024 with persistent abdominal pain and fever/chills. 1. Persistent abdominal pain with nausea/vomiting and fever/chills, elevated transaminases with concern for drug induced liver injury, inflammation of distal and terminal ileum, history of cholecystectomy ? Patient with recent hysterectomy on 07/16 as noted below. Developed worsening abdominal pain 2 to 3 days postop. Had 2 ED visits on 07/21 and 07/23 for this; CT abdomen pelvis x 2 showed hepatomegaly and central intrahepatic biliary ductal dilatation, and LFTs were elevated. Saw GI in the office on 07/25 who noted that drug-induced liver injury is possible given mixed cholestatic?hepatocellular pattern with recent use of Augmentin and Tylenol. Notably Tylenol level was less than 2 on 07/25. Gallbladder ultrasound on 07/26 showed hepatomegaly but no concerning bile duct findings. ? Given continued pain with fevers/chills on this admission, had CT abdomen pelvis with p.o. and IV contrast on 07/26 that showed evidence of inflammatory change involving the terminal ileum and distal ileal loops. Discussed with general surgery who is suspected this was most likely due to infection; importantly no concern for appendicitis. Enteric panel negative and stool lactoferrin negative. Was started on IV Zosyn on 07/26 but has continued to have intermittent fevers. ? Highest suspicion currently is for drug-induced liver injury as the driving factor for patient's ongoing abdominal pain and nausea with poor p.o. intake. Suspect RLQ infection is also contributing. On literature review, unclear if steroids are helpful for DILI but given patient's lack of improvement, will treat empirically with 4 doses of IV Solu-Medrol. If patient does not have much improvement, will plan for GI consult for further evaluation in the next 1 to 2 days. Patient okay for regular diet as tolerated. Monitor daily CMP. 2. Recent total robotic hysterectomy with bilateral salpingectomy ? Had procedure done with Dr. Henry on 07/16. Chronic medical conditions: ? Class I obesity: BMI 34 on admit. Complicates hospital course, care and prognosis. ? Hypothyroidism: Continue home Synthroid. ? Anxiety: Continue home escitalopram. She will undergo EGD and colonoscopy and possible MRCP. She was explained alternatives, benefits, risk include not withstanding bleeding, infection, sepsis, perforation, need for emergent urgent . She have an ASA of 3. I have examined the patient and the H&P has been reviewed. There are no clinical changes since date of exam.
--- NOTE | 2024-08-06 16:31 | PCM.POST.ANE ---
Anesthesia: Postop Eval I Current Vital Signs Temperature: 97 F Pulse Rate: 68 Blood Pressure: 106/66 Respiratory Rate: 16 Pulse Ox: 99 Oxygen Delivery Method: Room Air Assessment Airway patent: Yes Spontaneous unlabored respirations: Yes Mental status: Awake and Calm nausea: No Vomiting: No Anesthesia Complication: No Fluid Hydration Crystalloid volume administer (ml): 60 Total IV fluid infused: 60 Progress Note Anesthesia document: Postop Eval 1 completed: Yes
--- NOTE | 2024-08-06 16:37 | OP.EGD_ITS ---
Patient Name: Nedra Wilcox Procedure Date: 08/06/2024 3:53 PM Date of : 1975 Age: 49 Procedure: Upper GI endoscopy Indications: Epigastric abdominal pain, Functional Dyspepsia, Failure to respond to medical treatment Providers: Loenel Siddiqi DO Medicines: Monitored Anesthesia Care Patient Profile: This is a 49 year old female. Refer to note in patient chart for documentation of history and physical. Patient has symptoms of acute epigastric abdominal pain, chronic epigastric abdominal pain and chronic dyspepsia. Complications: No immediate complications. Procedure: Pre-Anesthesia Assessment: - Prior to the procedure, a History and Physical was performed, and patient medications and allergies were reviewed. The patient is competent. The risks and benefits of the procedure and the sedation options and risks were discussed with the patient. All questions were answered and informed consent was obtained. Patient identification and proposed procedure were verified by the physician in the pre-procedure area. Mental Status Examination: alert and oriented. Airway Examination: normal oropharyngeal airway and neck mobility. Respiratory Examination: clear to auscultation. CV Examination: normal. Prophylactic Antibiotics: The patient does not require prophylactic antibiotics. Prior Anticoagulants: The patient has taken no anticoagulant or antiplatelet agents except for NSAID medication. ASA Grade Assessment: II - A patient with mild systemic disease. After reviewing the risks and benefits, the patient was deemed in satisfactory condition to undergo the procedure. The anesthesia plan was to use monitored anesthesia care (MAC). Immediately prior to administration of medications, the patient was re-assessed for adequacy to receive sedatives. The heart rate, respiratory rate, oxygen saturations, blood pressure, adequacy of pulmonary ventilation, and response to care were monitored throughout the procedure. The physical status of the patient was re-assessed after the procedure. After obtaining informed consent, the endoscope was passed under direct vision. Throughout the procedure, the patient's blood pressure, pulse, and oxygen saturations were monitored continuously. The pediatric colonoscope was introduced through the mouth, and advanced to the second part of duodenum. The upper GI endoscopy was accomplished without difficulty. The patient tolerated the procedure well. Scope In: 4:07:07 PM Scope Out: 4:09:30 PM Total Procedure Duration Time 0 hours 2 minutes 23 seconds Findings: The examined esophagus was normal. Mild portal hypertensive gastropathy was found in the gastric body. Biopsies were taken with a cold forceps for histology. Verification of patient identification for the specimen was done. Biopsies were taken with a cold forceps for Helicobacter pylori testing. Verification of patient identification for the specimen was done. Estimated blood loss was minimal. Patchy mildly erythematous mucosa without active bleeding and with no stigmata of bleeding was found in the duodenal bulb. Biopsies were taken with a cold forceps for histology. Verification of patient identification for the specimen was done. Estimated blood loss was minimal. Impression: - Normal esophagus. - Portal hypertensive gastropathy. Biopsied. - Erythematous duodenopathy. Biopsied. Recommendation: - Discharge patient to home. - Resume previous diet. - Continue present medications. - Await pathology results. - MRCP - CT scan pancreatic protocol -CA 19-9 , AFP, IgG4, HERMELINDO comprehensive Procedure Code(s): --- Professional --- 97222, Esophagogastroduodenoscopy, flexible, transoral; with biopsy, single or multiple CPT copyright 2021 [employer]. All rights reserved. The codes documented in this report are preliminary and upon co founder and director review may be revised to meet current compliance requirements. Leonel Siddiqi DO 08/06/2024 4:36:59 PM This report has been signed electronically. Number of Addenda: 0 Note Initiated On: 08/06/2024 3:53 PM
--- NOTE | 2024-08-06 16:37 | OP.CCLET_ITS ---
08/06/2024 Claudette Alexandra Re : Upper GI endoscopy procedure for Nedra Bain Alexandra This procedure was performed on Tuesday, August 06, 2024. My impressions and recommendations are as follows: Impressions : - Normal esophagus. - Portal hypertensive gastropathy. Biopsied. - Erythematous duodenopathy. Biopsied. Recommendations : - Discharge patient to home. - Resume previous diet. - Continue present medications. - Await pathology results. - MRCP - CT scan pancreatic protocol -CA 19-9 , AFP, IgG4, HERMELINDO comprehensive My findings are described in the full procedure note, which is enclosed. If I can be of further assistance, please feel free to contact me at . Sincerely, Leonel Siddiqi, 08/06/2024 4:36:59 PM This report has been signed electronically.
--- NOTE | 2024-08-06 16:41 | OP.CCLET_ITS ---
08/06/2024 Claudette Alexandra Re : Colonoscopy procedure for Nedra Alexandra This procedure was performed on Tuesday, August 06, 2024. My impressions and recommendations are as follows: Impressions : - Preparation of the colon was poor. - Melanosis in the colon. Biopsied. - Stool in the recto-sigmoid colon, in the sigmoid colon, in the descending colon, in the ascending colon and in the cecum. Recommendations : - Discharge patient to home. - Resume previous diet. - Continue present medications. - Repeat colonoscopy in 6 months because the bowel preparation was poor. My findings are described in the full procedure note, which is enclosed. If I can be of further assistance, please feel free to contact me at . Sincerely, Leonel Siddiqi, 08/06/2024 4:40:44 PM This report has been signed electronically.
--- NOTE | 2024-08-06 16:41 | OP.COLON_ITS ---
Patient Name: Nedra Wilcox Procedure Date: 08/06/2024 4:09 PM Date of : 1975 Age: 49 Procedure: Colonoscopy Indications: Generalized abdominal pain Providers: Leonel Siddiqi DO Medicines: Monitored Anesthesia Care Patient Profile: This is a 49 year old female. Refer to note in patient chart for documentation of history and physical. Patient has symptoms of acute epigastric abdominal pain, chronic epigastric abdominal pain and chronic dyspepsia. Last Colonoscopy: none. The patient's first colonoscopy is today. Complications: No immediate complications. Procedure: Pre-Anesthesia Assessment: - Prior to the procedure, a History and Physical was performed, and patient medications and allergies were reviewed. The patient is competent. The risks and benefits of the procedure and the sedation options and risks were discussed with the patient. All questions were answered and informed consent was obtained. Patient identification and proposed procedure were verified by the physician in the pre-procedure area. Mental Status Examination: alert and oriented. Airway Examination: normal oropharyngeal airway and neck mobility. Respiratory Examination: clear to auscultation. CV Examination: normal. Prophylactic Antibiotics: The patient does not require prophylactic antibiotics. Prior Anticoagulants: The patient has taken no anticoagulant or antiplatelet agents except for NSAID medication. ASA Grade Assessment: II - A patient with mild systemic disease. After reviewing the risks and benefits, the patient was deemed in satisfactory condition to undergo the procedure. The anesthesia plan was to use monitored anesthesia care (MAC). Immediately prior to administration of medications, the patient was re-assessed for adequacy to receive sedatives. The heart rate, respiratory rate, oxygen saturations, blood pressure, adequacy of pulmonary ventilation, and response to care were monitored throughout the procedure. The physical status of the patient was re-assessed after the procedure. After I obtained informed consent, the scope was passed under direct vision. Throughout the procedure, the patient's blood pressure, pulse, and oxygen saturations were monitored continuously. The pediatric colonoscope was introduced through the anus and advanced to the cecum, identified by appendiceal orifice and ileocecal valve. The colonoscopy was performed without difficulty. The patient tolerated the procedure well. The quality of the bowel preparation was poor. The ileocecal valve, appendiceal orifice, and rectum were photographed. Scope In: 4:10:46 PM Scope Withdrawal Time 0 hours 5 minutes 10 seconds Scope Out: 4:22:26 PM Total Procedure Duration Time 0 hours 11 minutes 40 seconds Findings: The perianal and digital rectal examinations were normal. A diffuse area of mild melanosis was found in the entire colon. Biopsies were taken with a cold forceps for histology. Verification of patient identification for the specimen was done. Estimated blood loss was minimal. Stool was found in the recto-sigmoid colon, in the sigmoid colon, in the descending colon, in the ascending colon and in the cecum. Impression: - Preparation of the colon was poor. - Melanosis in the colon. Biopsied. - Stool in the recto-sigmoid colon, in the sigmoid colon, in the descending colon, in the ascending colon and in the cecum. Recommendation: - Discharge patient to home. - Resume previous diet. - Continue present medications. - Repeat colonoscopy in 6 months because the bowel preparation was poor. Procedure Code(s): --- Professional --- 31328, Colonoscopy, flexible; with biopsy, single or multiple CPT copyright 2021 [employer]. All rights reserved. The codes documented in this report are preliminary and upon nut feeder review may be revised to meet current compliance requirements. Leonel Siddiqi DO 08/06/2024 4:40:44 PM This report has been signed electronically. Number of Addenda: 0 Note Initiated On: 08/06/2024 4:09 PM
--- NOTE | 2024-08-06 16:42 | PCM.POSTANE2 ---
Anesthesia Postop Eval I Sum Postop Eval Completion status Anesthesia document: Postop Eval 1 completed: Yes Anesthesia Postop Eval I Summary Anesthesia Postop Eval I Summary: Anesthesia Postop Eval I: Assessment Summary Airway patent Yes 08/06/24 16:31 [email or web address] Spontaneous unlabored Yes 08/06/24 16:31 [email or web address] respirations Mental status Awake,Calm 08/06/24 16:31 [email or web address] nausea No 08/06/24 16:31 [email or web address] Vomiting No 08/06/24 16:31 [email or web address] Anesthesia Postop Eval I: Fluid Summary Crystalloid volume administer 60 08/06/24 16:31 [email or web address] (ml) Colloids volume administered ( ml) Blood Product volume administered (ml) Total IV fluid infused 60 08/06/24 16:31 [email or web address] Anesthesia Postop Eval I: Summary Notes Anesthesia Complication No 08/06/24 16:31 [email or web address] Anesthesia Complication Comment: Post-operative progress note Anesthesia: Postop Eval II Evaluation Mental status: Awake Pain Level: 0 nausea: No Vomiting: No
[2024-08-06 17:45] LABS: Absolute Lymphocyte Count 1.33 X10^3/uL (0.83-4.51); Absolute Neutrophil Count 6.7 X10^3/uL (2.0-7.7); Basophil# 0.07 X10^3/uL; Basophil% 0.8 % (0-1); Eosinophil# 0.27 X10^3/uL; Hematocrit 37.1 % (37-47); Hemoglobin 11.7 g/dL (12.0-15.0); Lymphocyte # 1.33 X10^3/ul (0.83-4.51); Lymphocyte % 14.6 % (19-41); Mean Corp Hgb Conc 31.5 g/dL (32-36); Mean Corpuscular Hgb 27.6 pg (27.0-32.0); Mean Corpuscular Volume 87.5 fL (81-99); Mean Platelet Vol. 9.3 fl (6.2-12.0); Monocyte# 0.62 X10^3/uL; Monocyte% 6.8 % (0-10); NRBC Flagged by Analyzer 0 % (0-5); Neutrophil # 6.74 X10^3/uL (2.7-7.7); Neutrophil % 73.6 % (47-70); Platelet Count 353 K/mm3 (150-450); RBC Distribution Width CV 12.8 % (11.6-14.6); Red Blood Count 4.24 M/mm3 (4.2-5.4); White Blood Count 9.1 K/mm3 (4.4-11.0)
[2024-08-06 18:07] LABS: AST(SGOT) 74 U/L (15-37); Alanine Aminotransfer ALT/SGPT 70 U/L (13-56); Albumin, Serum 3.1 g/dL (3.2-5.0); Alkaline Phosphatase 447 U/L (45-117); Bilirubin, Direct 0.17 mg/dL (0.00-0.30); Globulin 4.2 g/dL (2.2-4.2); Protein, Total 7.3 g/dL (6.4-8.2)
[2024-08-06 18:45] LABS: Hepatitis B Surface Antibody Non-Reactive; Hepatitis B Surface Antigen Non-Reactive (Nonreactive); Hepatitis C Antibody Non-Reactive (Nonreactive)
[2024-08-09 14:08] LABS: ANTINUCLEAR ANTIBODIES DIRECT Negative (Negative); Anti-Mitochondrial AB <20.0 Units (0.0-20.0); Anti-Smooth Muscle ABS 22 Units (0-19); Hepatitis A IgM Antibody Negative (Negative); Hepatitis B Core AB IgM Negative (Negative)
== END 2024-08-06 17:09 | disposition home or self-care (01) ==
LOC: EN 13:56 → AC 13:57
PROVIDERS: Nurse Practitioner Acute Care; PCP Physician Assistant; Referring Provider Physician Assistant; Visit Provider Internal Medicine Gastroenterology
PROC: 0DJD8ZZ Inspection of Lower Intestinal Tract, Via Natural or Artificial Opening Endoscopic (ICD-10-PCS; CPT 45378; principal; 2024-08-06 15:10)
DX: R10.31 Right lower quadrant pain (principal); K76.6 Portal hypertension; R11.2 Nausea with vomiting, unspecified; R19.7 Diarrhea, unspecified; Z68.34 Body mass index [BMI] 34.0-34.9, adult; E03.9 Hypothyroidism, unspecified; F41.9 Anxiety disorder, unspecified; R50.9 Fever, unspecified; E66.811 Obesity, class 1; F32.A Depression, unspecified; Z79.899 Other long term (current) drug therapy; Z90.710 Acquired absence of both cervix and uterus; Z90.49 Acquired absence of other specified parts of digestive tract; R74.8 Abnormal levels of other serum enzymes; Z79.890 Hormone replacement therapy; K31.89 Other diseases of stomach and duodenum; K63.89 Other specified diseases of intestine; K29.70 Gastritis, unspecified, without bleeding
CPT/HCPCS: 45380; 43239; 36415; 80076; 83516; 85025; 85610; 86038; 86225; 86235; 86705; 86706; 86709; 86803; 87340; 88305; 88342; A4216; J2405

== ENCOUNTER 2024-08-27 07:55 | Outpatient (CLI) | payer SELFPAY, OTHER ==
--- NOTE | 2024-08-27 08:00 | PET_ITS ---
EXAMINATION: FDG-PET/CT ? INDICATIONS: 49-year-old female with a history of cervical carcinoma, presenting for restaging examination. ? COMPARISON EXAMINATION: ? TECHNIQUE: Following the intravenous administration of approximately 12.5 mCi of F-18 deoxyglucose, multiplanar image acquisitions of the head, neck, chest, abdomen and pelvis to the level of the midthigh, obtained at one-hour post radiopharmaceutical administration contemporaneously interpreted with the current CT of the chest, abdomen and pelvis dated 08/27/2024 via coregistration reveal: ? HEIGHT:?? 63 inches WEIGHT:?? 194 pounds ? FINDINGS: ? HEAD/NECK:? There is no evidence of abnormal increased glucose metabolism in the pharyngeal mucosal space, parapharyngeal space, oropharynx, bilateral-lateral and anterior neck, hypopharynx and distribution of the larynx. Prominent uptake noted in the paramidline neck associated with cricopharyngeus musculature is most consistent with muscle tension artifact. ? The visualized portion of the cerebral cortical-subcortical structures demonstrate symmetric and preserved glucose metabolism. ? CHEST:? There is no quantitative scintigraphic evidence of abnormal increased glucose metabolism within the context of the bilateral hemithorax pulmonary parenchyma, right and left hemithorax at the pleural interface, mediastinal structures, and left-right thoracic perihilum. The left ventricular myocardium visualization is consistent with the [place]. ? CT of the chest demonstrates the following anatomic characteristics: Mediastinal and bilateral axillary soft tissue densities are ametabolic. There are no parenchymal densities-nodules defined in the right and left hemithorax with quantitatively significant increased FDG uptake. ? ABDOMEN/PELVIS:? Normal physiologic distribution of the radiopharmaceutical is identified in the hepatic and splenic parenchyma, both renal units, urinary bladder, and visualized intestinal tract. ? CT of the abdomen and pelvis is remarkable for the following: The gallbladder is surgically absent. Calcified phlebolith formation is noted in the bilateral lower hemipelvis.? Apparent postprocedural change is noted in the right lower pelvic mesentery anteriorly. Calcification is noted in the bilateral adnexal regions. Right and left inguinal soft tissue densities are nonglucose avid. ? SKELETAL:? There is no evidence of quantitatively significant enhanced glucose metabolism on meticulous inspection of the appendicular and axial skeletal structures. ? Degenerative changes defined in the thoracic and lumbar spine demonstrate no evidence of increased glucose metabolism. There are no sclerotic, mixed sclerotic-lytic, or primarily lytic changes defined in the axial skeletal structures with evidence of increased FDG uptake. ? PET/PET/CT Tumor Base -Thigh Init IMPRESSION: 1. NEGATIVE EXAMINATION. There is no definitive quantitative scintigraphic evidence of recurrent-viable neoplasm. 2. There is no metabolic evidence of defined viable neoplastic disease. Accurate Quantification of SUVs for this report are calculated using the exclusive [employer]. ([place]. Patent No. [id number] [id number] [phone] B2 [phone] [place] patent [id number] [phone]). Standardization and correction of the FDG SUV metric via [employer] technology allow for vendor non-specific objective quantitative examination comparison and optimization of the sensitivity and specificity of the FDG PET-CT examination. [email or web address] Electronically Signed: Gwyn العلي DO at 22:14 EST ,
== END 2024-08-27 23:59 | disposition home or self-care (01) ==
LOC: ONC 07:56 → RAO 10:20
PROVIDERS: PCP Physician Assistant; Referring Provider Obstetrics & Gynecology; Visit Provider Obstetrics & Gynecology
DX: C53.0 Malignant neoplasm of endocervix (principal)
CPT/HCPCS: 78815; A9552

== ENCOUNTER 2024-09-11 09:09 | Day surgery (SDC) | payer SELFPAY, OTHER ==
[2024-09-11] VITALS (8 sets, daily range): BP systolic 97–122; BP diastolic 70–76; PULSE 58–69; RESP 14–16; TEMP 35.9–36.8; O2SAT 96–100; BMI 34.0
--- NOTE | 2024-09-11 09:39 | PCM.PRE.AN2 ---
ASA Classification* ASA Classification ASA Classification: 2 Assessment & Plan Anesthesia* Anesthesia Assessment Anesthesia Assessment: Discussed sedation and/or anesthesia options, risks, benefits, and alternatives with patient/parents/legal guardian/POA. Questions invited. The patient/parents/legal guardian/POA seems to understand and agrees to proceed with anesthesia plan. Reviewed the physical assessment, medical history, allergy history and patient home medications list prior to surgery/procedure/anesthetic and documented any changes. Performed airway and anesthesia risk assessments. Anesthesia Type Anesthesia Type: MAC Anesthesia Focused Assessment* Airway Assessment Mouth opens: >3 cm Mallampati Score: II Focused Labs Anesthesia Preop lab: CBC WBC 6.5 K/mm3 (4.4-11.0) 09/05/24 10:21 09/05/24 RBC 4.32 M/mm3 (4.2-5.4) 09/05/24 10:09/05/24 Hgb 12.0 g/dL (12.0-15.0) 09/05/24 10:09/05/24 Hct 36.3 % (37-47) L 09/05/24 10:21 09/05/24 Plt Count 291 K/mm3 (150-450) 09/05/24 10:21 09/05/24 CHEMISTRY Potassium 4.0 mmol/L (3.5-5.1) 09/05/24 10:21 09/05/24 Sodium 136 mmol/L (136-145) 09/05/24 10:09/05/24 Magnesium 2.4 mg/dL (1.6-2.6) 09/05/24 10:09/05/24 Phosphorus 3.1 mg/dL (2.5-4.9) 09/05/24 10:21 09/05/24 BUN 13 mg/dL (7-18) 09/05/24 10:21 09/05/24 Creatinine 0.70 mg/dL (0.55-1.02) 09/05/24 10:21 09/05/24 Glucose 89 mg/dL (74-106) 09/05/24 10:21 09/05/24 TSH 3.620 uIU/mL (0.358-3.740) 07/25/24 12:56 07/25/24 COAG PT 13.0 SECONDS (11.7-14.9) 08/06/24 17:15 08/06/24 Urine Test Negative Negative 07/16/24 06:05 07/16/24 Pre-Assessment Diagnosis/Proposed Procedure Planned Operative Procedure(s): (L) Insertion, Vascular Port left poss right Anesthesia History Anesthesia History - emergency care tech: Anesthesia History - emergency care tech Hx Hospitalization Yes: 07/2025 FEVER 09/09/24 10:08 Any Problems With Anesthesia No 09/09/24 10:08 Cholinesterase deficiency No 09/09/24 10:08 You/Your Family Experience No 09/09/24 10:08 fever (hyperthermia) with Relationship Recent Exposure to Contagious No 08/06/24 14:22 Disease Does patient have nerve No 09/09/24 10:08 stimulator Patient instructed to have device shut off --Does patient have Pacemaker or ICD? When Was Last Pacemaker Check QUESTION #4 FULL TEXT: You/Your Family Experience fever (hyperthermia) with Anesthesia Last Oral Intake Last Oral intake: Last Oral Intake NPO since Meds taken in AM with sips of water? Meds patient instructed to take am of surgery PONV PONV - emergency care tech: PONV - emergency care tech Female Yes 09/09/24 10:08 HX of Motion Sickness No 09/09/24 10:08 HX of N/V After Surgery Yes 09/09/24 10:08 Non-Smoker Yes 09/09/24 10:08 Duration of Surgery greater Yes 09/09/24 10:08 than 60 minutes Number of Risk Factors 4 09/09/24 10:08 PONV Score Severe Risk 09/09/24 10:08 Height & Weight Height & Weight: Anesthesia: Height & Weight Height 5 ft 3 in 09/11/24 07:52 Respiratory Assessment Respiratory Assessment - emergency care tech: Respiratory Tract Infection Hx - emergency care tech Hx Respiratory Tract Infection No 09/09/24 10:08 STOP Sleep Apnea STOP Sleep Apnea - emergency care tech: STOP Sleep Apnea - emergency care tech Hx Hypertension No 09/09/24 10:08 Hx Sleep Apnea No 09/09/24 10:08 CPAP BIPAP Do you snore loudly (louder No 09/09/24 10:08 than talking or can be heard Do you often feel tired/ No 09/09/24 10:08 fatigued/ sleepy during daytime? Has anyone observed you stop No 09/09/24 10:08 breathing during sleep? STOP Results Negative 09/09/24 10:08 QUESTION #5 FULL TEXT : Do you snore loudly (louder than talking or can be heard through closed doors)? 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 Specify any problems Hx of Preganancy in last 3 No 09/09/24 10:08 Months Nurse Filling Out Transfusion MGRIFFITH 09/09/24 10:08 & Questions: Date: 09/09/24 09/09/24 10:08 Time: 10:11 09/09/24 10:08 Patient unable to answer at this time (ie. confused, unrespo /Reproduction History /Reproductive History - emergency care tech: /Reproductive Hx- emergency care tech Hx Now No 09/09/24 10:08 Gestational Age (in weeks): EDC: Hx Hx Para Hx Section SAB No 09/09/24 10:08 Active Medications Active Medications: Current Medications Generic Name Dose Route Start Last Admin Trade Name Freq PRN Reason Stop Dose Admin Clindamycin Phosphate 900 mg in 50 mls @ 75 mls/hr 09/11/24 10:30 Cleocin IV 09/11/24 11:09 PREOP ONE [facility] Medical History Encounter for education Anxiety History of steroid therapy Cervix cancer IBS (irritable bowel syndrome) Depression PONV (postoperative nausea and vomiting) Wears glasses Wears dentures Thyroid disease Arthritis Anemia Restless legs Syncope History of IBS Non-smoker History of edema History of rheumatic fever Home Medications ?Medication ?Instructions ?Recorded ?Last Taken ?Type cholecalciferol (vitamin D3) 50 50 mcg PO DAILY bone 11/05/21 Unknown History mcg (2,000 unit) capsule (Vitamin D3) vitamin A 2,400 mcg capsule 2,400 mcg PO DAILY health 11/05/21 Unknown History escitalopram oxalate 20 mg tablet 20 mg PO QDAY anxiety 04/18/24 07/16/24 04:30 History (Lexapro) levothyroxine 50 mcg tablet 50 mcg PO DAILY thyroid 07/25/24 Unknown History oxycodone 10 mg tablet 10 mg PO Q6H PRN pain 09/03/24 Unknown History lidocaine-prilocaine 2.5 %-2.5 % 1 applic topical ONCE PRN port 09/11/24 Unknown Rx topical cream access 30 days #30 grams ondansetron 8 mg disintegrating 8 mg PO Q8H PRN nausea and 09/11/24 Unknown Rx tablet vomiting #30 tabs prochlorperazine maleate 10 mg 10 mg PO Q6H PRN nausea and 09/11/24 Unknown Rx tablet vomiting #30 tabs Allergy/AdvReac Type Severity Reaction Status Date / Time codeine Allergy Mild Nausea Verified 09/11/24 07:54 adhesive tape (surgical tape) Allergy Rash Verified 09/11/24 07:54 amoxicillin (From Augmentin) AdvReac Severe drug Verified 09/11/24 07:54 induced liver injury clavulanic acid (From AdvReac Severe drug Verified 09/11/24 07:54 Augmentin) induced liver injury Family History Father Cancer Throat Surgical History History of colonoscopy History of esophagogastroduodenoscopy (EGD) History of hysterectomy S/P endometrial ablation History of mandibular surgery S/P knee surgery History of back surgery Hx laparoscopic cholecystectomy History of Social History household members: spouse current occupational status: unemployed Smoking Status: Never smoker alcohol intake: never substance use type: does not use seatbelt use: always do you feel safe at home: Yes 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
--- NOTE | 2024-09-11 10:27 | PCM.HP.STD ---
HPI - General General Date of Admission: 09/11/24 Date of Service: 09/11/24 Chief Complaint: Need for Mediport HPI Narrative The patient is a 49-year-old female who was recently discovered to have cervical cancer. Her treating oncology team is recommending chemotherapy. She was referred to general surgery to discuss Mediport placement to help facilitate the chemotherapy process. She denies any complaints today. We did discuss the advantages of having a port placed. She presents today to have the port placed [facility] Medical History Encounter for education Anxiety History of steroid therapy Cervix cancer IBS (irritable bowel syndrome) Depression PONV (postoperative nausea and vomiting) Wears glasses Wears dentures Thyroid disease Arthritis Anemia Restless legs Syncope History of IBS Non-smoker History of edema History of rheumatic fever Home Medications ?Medication ?Instructions ?Recorded ?Last Taken ?Type cholecalciferol (vitamin D3) 50 50 mcg PO DAILY bone 11/05/21 09/10/24 History mcg (2,000 unit) capsule (Vitamin D3) vitamin A 2,400 mcg capsule 2,400 mcg PO DAILY health 11/05/21 09/10/24 History escitalopram oxalate 20 mg tablet 20 mg PO QDAY anxiety 04/18/24 09/10/24 History (Lexapro) levothyroxine 50 mcg tablet 50 mcg PO DAILY thyroid 07/25/24 09/11/24 History oxycodone 10 mg tablet 10 mg PO Q6H PRN pain 09/03/24 09/11/24 History lidocaine-prilocaine 2.5 %-2.5 % 1 applic topical ONCE PRN port 09/11/24 Unknown Rx topical cream access 30 days #30 grams ondansetron 8 mg disintegrating 8 mg PO Q8H PRN nausea and 09/11/24 Unknown Rx tablet vomiting #30 tabs prochlorperazine maleate 10 mg 10 mg PO Q6H PRN nausea and 09/11/24 Unknown Rx tablet vomiting #30 tabs Allergy/AdvReac Type Severity Reaction Status Date / Time codeine Allergy Mild Nausea Verified 09/11/24 09:43 adhesive tape (surgical tape) Allergy Rash Verified 09/11/24 09:43 amoxicillin (From Augmentin) AdvReac Severe drug Verified 09/11/24 09:43 induced liver injury clavulanic acid (From AdvReac Severe drug Verified 09/11/24 09:43 Augmentin) induced liver injury Family History Father Cancer Throat Surgical History History of colonoscopy History of esophagogastroduodenoscopy (EGD) History of hysterectomy S/P endometrial ablation History of mandibular surgery S/P knee surgery History of back surgery Hx laparoscopic cholecystectomy History of Social History household members: spouse current occupational status: unemployed Smoking Status: Never smoker alcohol intake: never substance use type: does not use seatbelt use: always do you feel safe at home: Yes 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
[2024-09-11] MEDS: Clindamycin 900 MG/50 ML BAG 75 MG IV (10:33)
[2024-09-11] MEDS: Bupivacaine Mpf 0.5% 30 ML VIAL (11:14)
[2024-09-11] MEDS: Lidocaine 1% /Epi 1:100 (20ml) 20 ML Vial (11:14)
--- NOTE | 2024-09-11 11:29 | EX.PCM.DISCH ---
Discharge Instructions Diet Discharge Diet: Light diet - advance as tolerated Activity Discharge Activity: Return to Normal Activity and May Shower May shower in (days): 1 Ice area for (Minutes): 30 Dressing / Incision Call your doctor if your incision/area has: Continuous Slow Oozing, Sudden Increased Bleeding, Increased Pain/ Swelling, Increased Redness, Foul Smelling Discharge and Swelling at the incision site Call your doctor if you observe: Fever of 101 or Higher Remove Dressing in: do not remove dressing Cleanse incision/area with: Soap & Water Follow Up Care Please Follow Up With: Franco Webb MD When: 2 weeks Test Results: Test results from this visit will be discussed in further detail at your follow-up appointment, if applicable. Discharge Plan Admission Primary Reason for Your Visit: port placement Attending Provider: Franco Webb Primary Care Provider: Claudette Alexandra Instructions Print Language: Finnish Discharge Orders/Prescriptions Prescriptions: New oxycodone-acetaminophen [Percocet] 5-325 mg tablet 1 tab PO Q8H PRN (Reason: pain) 3 Days Qty: 5 0RF Continued escitalopram oxalate [Lexapro] 20 mg tablet 20 mg PO QDAY oxycodone 10 mg tablet 10 mg PO Q6H PRN (Reason: pain) prochlorperazine maleate 10 mg tablet 10 mg PO Q6H PRN (Reason: nausea and vomiting) Qty: 30 2RF ondansetron 8 mg tablet,disintegrating 8 mg PO Q8H PRN (Reason: nausea and vomiting) Qty: 30 2RF lidocaine-prilocaine 2.5-2.5 % cream 1 applic topical ONCE PRN (Reason: port access) 30 Days Qty: 30 2RF vitamin A 2,400 mcg Capsule 2,400 mcg PO DAILY cholecalciferol (vitamin D3) [Vitamin D3] 50 mcg (2,000 unit) Capsule 50 mcg PO DAILY levothyroxine 50 mcg tablet 50 mcg PO DAILY Referrals / Follow Up: Claudette Alexandra PA [Primary Care Provider] - Disposition Disposition (needs filled in before D/C Order can be placed): Home, Self Care
--- NOTE | 2024-09-11 11:40 | RAD_ITS ---
EXAM: XR Chest, 1 View CLINICAL INDICATION: TECHNIQUE: Frontal view of the chest. COMPARISON: No relevant prior studies available. FINDINGS: LUNGS AND PLEURAL SPACES: See below. HEART: Unremarkable. No cardiomegaly. MEDIASTINUM: Unremarkable. Normal mediastinal contour. BONES/JOINTS: Unremarkable. No acute fracture. TUBES, LINES AND DEVICES: Status post left-sided PICC line with distal tip in the proximal SVC. No pneumothorax. RAD/CXR for Line Placement IMPRESSION: Status post left-sided PICC line with distal tip in the proximal SVC. No pneum othorax. Reading Location: [facility]
--- NOTE | 2024-09-11 11:40 | OP.PCM_ITS ---
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: No Type of Anesthesia: Local and MAC RN Documented Start/Stop Times: Operation Date: 09/11/24 10:30 Case Time Into Pre-Op 09/11/24 09:16 Anesthesia Start 09/11/24 10:33 Into Room 09/11/24 10:33 Out of Pre-Op 09/11/24 10:33 Procedure Start 09/11/24 10:53 Procedure End 09/11/24 11:23 Anesthesia End 09/11/24 11:25 Out of Room 09/11/24 11:25 Into Recovery 09/11/24 11:30 Procedure Start Time: 10:53 Procedure Stop Time: 11:23 Select all DRAINS/GRAFTS/IMPLANTS that apply: Implanted device Implanted device details: PowerPort MRI compatible Mediport Special Medications: Clindamycin preop Estimated Blood Loss: 5 mL Specimen collected: No Description of surgery: The patient is a 49-year-old female who was recently found to have cervical cancer. Her treating oncologist have recommended Mediport placement. She presents today to have port placed. After obtaining informed consent, she was placed supine on the operative table with arms outstretched on arm boards. MAC anesthesia was induced. The left upper chest and neck regions were then prepped and draped in the usual sterile manner. Local anesthetic was then injected into the left periclavicular area. Using the supplied needle and syringe, I was able to gain access to the left subclavian vein. The blood return was a dark red, nonpulsatile, venous appearing blood return. The guidewire was then threaded through the aperture and the needle. This was then secured to the drapes using a curved hemostat. C-arm was brought into confirm good placement of the wire. Next a subcutaneous pocket was created for the implantation of the port. Local anesthetic was then injected and then a #15 blade was then used to make about a 3 cm incision just below the clavicle. A subcutaneous pocket was then created. Another small incision was made near the entry point of the guidewire. The tubing and tunneler were then inserted into the larger incision and brought out through the smaller incision. This was trimmed to about 21 cm. This was then attached to the port itself. The port was then affixed to the underlying chest wall using Prolene suture. This laid nicely. The sheath and dilator were then advanced over the guidewire. The guidewire and dilator were then removed thus leaving the sheath in place. The free end of the tubing was then threaded down the sheath. The sheath was then extracted while the tubing was advanced. C arm was brought in and showed good positioning of the tip. The port ras and flushed easily with saline as well as heparin flush. The wound was then closed using 3- 0 Vicryl and 4-0 Vicryl. Skin glue as well as a Tegaderm were then applied as dressing. She was awakened from anesthesia and taken to recovery in good condition. Surgical Findings: See operative note Complications Complications: No Admit VTE Documentation VTE Present on Admission: No VTE Mechan Device Prophylaxis: SCD's VTE Pharm Prophylaxis ordered?: No Reason prophylaxis not ordered: Treatment Not Indicated
[2024-09-11] MEDS: Acetaminophen 325 MG Tablet PO (12:49)
[2024-09-11] MEDS: oxyCODONE 5 MG Tablet PO (12:49)
--- NOTE | 2024-09-11 13:10 | PCM.POST.ANE ---
Anesthesia: Postop Eval I Current Vital Signs Temperature: 98.2 F Pulse Rate: 58 Blood Pressure: 118/74 Respiratory Rate: 16 Pulse Ox: 96 Oxygen Delivery Method: Room Air Assessment Airway patent: Yes Spontaneous unlabored respirations: Yes nausea: No Vomiting: No Anesthesia Complication: No Fluid Hydration Crystalloid volume administer (ml): 200 Total IV fluid infused: 200 Progress Note Anesthesia document: Postop Eval 1 completed: Yes
--- NOTE | 2024-09-11 13:11 | PCM.POSTANE2 ---
Anesthesia Postop Eval I Sum Postop Eval Completion status Anesthesia document: Postop Eval 1 completed: Yes Anesthesia Postop Eval I Summary Anesthesia Postop Eval I Summary: Anesthesia Postop Eval I: Assessment Summary Airway patent Yes 09/11/24 13:11 Spontaneous unlabored Yes 09/11/24 13:11 respirations Mental status nausea No 09/11/24 13:11 Vomiting No 09/11/24 13:11 Anesthesia Postop Eval I: Fluid Summary Crystalloid volume administer 200 09/11/24 13:11 (ml) Colloids volume administered ( ml) Blood Product volume administered (ml) Total IV fluid infused 200 09/11/24 13:11 Anesthesia Postop Eval I: Summary Notes Anesthesia Complication No 09/11/24 13:11 Anesthesia Complication Comment: Post-operative progress note Anesthesia: Postop Eval II Evaluation Mental status: Awake Pain Level: 0 nausea: No Vomiting: No
== END 2024-09-11 13:06 | disposition home or self-care (01) ==
LOC: SDC 09:09 → AC 09:10
PROVIDERS: PCP Physician Assistant; Referring Provider Surgery; Visit Provider Surgery
PROC: (CPT 36561; principal; 2024-09-11 10:15)
DX: Z45.2 Encounter for adjustment and management of vascular access device (principal); C53.9 Malignant neoplasm of cervix uteri, unspecified
CPT/HCPCS: 36561; 00532; 71045; 77001; A4216; C1788; J2405

== ENCOUNTER 2024-10-21 19:07 | Inpatient (IN) | payer OTHER, SELFPAY ==
[2024-10-21] VITALS (16 sets, daily range): BP systolic 121–125; BP diastolic 63–83; PULSE 78–99; RESP 12–25; TEMP 36.2; O2SAT 89–98; BMI 32.2
[2024-10-21 21:02] LABS: Mucous, Urine 0 SEEN /hpf (<or=2+)
[2024-10-21 21:03] LABS: Color, Urine Amber (Yellow); Glucose, Dipstick Normal (Normal); Ketone-Dipstick Negative (Negative); Leukocyte Esterase-Dipstick 500 /ul (Negative); Nitrite-Dipstick Positive (Negative); Occult Blood-Urine 25 /ul (Negative); Protein-Dipstick 30 mg/dl (Negative); Specific Gravity, Urine 1.015 (1.002-1.030); Urine Clarity Sl. Cloudy (Clear); Urine Urobilinogen 8 mg/dl (Normal)
[2024-10-21] MEDS: 0.9% Normal Saline (1000mL) 1,000 ML 50 ML IV (21:04)
--- NOTE | 2024-10-21 21:10 | RAD_ITS ---
PROCEDURE: CHEST PA AND LATERAL 10/21/2024 REASON FOR EXAM: NEUTROPENIC FEVER TECHNIQUE: Frontal and lateral views of the chest. COMPARISON: 09/11/2019 FINDINGS: Stable left-sided port catheter. Cardiomediastinal silhouette is within normal limits. No focal consolidation. No pneumothorax. No pleural effusion. No acute osseous abnormality. Degenerative changes of the thoracic spine. RAD/Chest PA and Lateral IMPRESSION: NO ACUTE FINDINGS. Reading Location: [facility]
[2024-10-21 21:14] LABS: Absolute Lymphocyte Count 0.37 X10^3/uL (0.83-4.51); Absolute Neutrophil Count 1.5 X10^3/uL (2.0-7.7); Basophil# 0.01 X10^3/uL; Basophil% 0.5 % (0-1); Eosinophil# 0.05 X10^3/uL; Eosinophils% 2.4 % (0-5); Hematocrit 26.7 % (37-47); Hemoglobin 8.5 g/dL (12.0-15.0); Lymphocyte # 0.37 X10^3/ul (0.83-4.51); Lymphocyte % 17.8 % (19-41); Mean Corp Hgb Conc 31.8 g/dL (32-36); Mean Corpuscular Hgb 27.6 pg (27.0-32.0); Mean Corpuscular Volume 86.7 fL (81-99); Monocyte# 0.15 X10^3/uL; Monocyte% 7.2 % (0-10); NRBC Flagged by Analyzer 0 % (0-5); Neutrophil # 1.48 X10^3/uL (2.7-7.7); Neutrophil % 71.1 % (47-70); POSITIVE COUNT YES; POSITIVE DIFFERENTIAL YES; Platelet Count 77 K/mm3 (150-450); RBC Distribution Width CV 15.9 % (11.6-14.6); RBC Distribution Width SD 46.7 fl (35.1-43.9); Red Blood Count 3.08 M/mm3 (4.2-5.4); White Blood Count 2.1 K/mm3 (4.4-11.0)
[2024-10-21 21:25] LABS: Differential Indicated SCAN CRITERIA MET
[2024-10-21 21:30] LABS: Urine Bilirubin Dipstick 3 mg/dL (Negative)
[2024-10-21 21:52] LABS: Bacteria 1+ /hpf (None Seen); Red Blood Cells-Urine 5-10 SEEN /hpf (0-5); Squamous Epithelial Cells - UA 0-5 SEEN /hpf (5-10); White Blood Cells 10-25 SEEN /hpf (0-5)
[2024-10-21 21:57] LABS: ALB/GLOB Ratio 1.5 RATIO (0.9-2.4); AST(SGOT) 23 U/L (<=31); Alanine Aminotransfer ALT/SGPT 14 U/L (<=34); Albumin, Serum 3.6 g/dL (3.5-5.0); Alkaline Phosphatase 101 U/L (35-104); Anion Gap 8 (5-15); BUN 11 mg/dL (4-19); BUN/Creat Ratio 15.7 RATIO (10-20); Calcium,Total 8.4 mg/dL (7.6-11.0); Carbon Dioxide 22.8 mmol/L (21.0-32.0); Chloride 104 mmol/L (98-108); Creatinine, Serum 0.71 mg/dL (0.70-1.20); EST Glomerular Filtration Rate 103 (>60); Estimated Creatinine Clearance 95.39 ml/min (50-250); Globulin 2.3 g/dL (2.2-4.2); Glucose 98 mg/dL (70-99); Potassium 3.9 mmol/L (3.3-5.1); Protein, Total 5.9 g/dL (5.9-8.4); Sodium Level 135 mmol/L (133-145); Total Bilirubin 0.22 mg/dL (0.00-1.30)
[2024-10-21 21:59] LABS: Lactic Acid < 1.0 mmol/L (0.0-2.0)
[2024-10-21 22:01] LABS: International Normalized Ratio 0.9; Prothrombin Time (Protime)PT. 11.8 SECONDS (11.7-14.9)
--- NOTE | 2024-10-21 22:03 | CT_ITS ---
PROCEDURE: CTA CHEST W/WO CONTRAST REASON FOR EXAM: HYPOXIA TECHNIQUE: CTA imaging of the chest with intravenous contrast and 3D reconstructions.IV CONTRAST: COMPARISON: None. FINDINGS: CHEST CTA: Hardware: None. Lymph nodes: No mediastinal hilar or axillary lymphadenopathy. Heart: Normal heart size. No pericardial effusion. RV/LV Diameter Ratio: N/A Thoracic Aorta: No thoracic aortic aneurysm or dissection. Pulmonary Vessels: No evidence of acute pulmonary emboli through the major subsegmental branches. Most Proximal Level of Embolus (if embolus present): N/A Lungs and Airways: The lungs are normally expanded and clear. Pleura: No pleural effusion. No pneumothorax. Bones: Bone windows are unremarkable. Bones: Unremarkable. CT/CTA Chest W/WO Contrast IMPRESSION: No evidence of pulmonary embolism or acute findings in the thorax. One or more dose reduction techniques were used (e.g., Automated exposure contr ol, adjustment of the mA and/or kV according to patient size, use of iterative reconstruction technique). Reading Location: [facility]
--- NOTE | 2024-10-21 22:04 | EX.ED.DYSGE1 ---
HPI History of Present Illness Chief Complaint: Abn Labs Narrative Narrative: 49-year-old female past medical history of cervical carcinoma, finished chemotherapy last week but still undergoing radiation presents with generalized weakness that she has had for the last few days. Her symptoms started last ., Approximately 5 days ago. She states that she is sometimes nauseated but denies any vomiting. She has had diarrhea as well. She has had a low-grade fever of 99 degrees. She states that her urine is dark because she is taking Pyridium because of the radiation and she has pain and dysuria. She presents to the emergency department wanting to be admitted because of generalized weakness. Additionally, her family states that her pulse ox was low in the 80s at home. [facility] Medical History Dysuria Nausea Encounter for chemotherapy management Iron deficiency anemia due to chronic blood loss Encounter for education Anxiety History of steroid therapy Cervix cancer IBS (irritable bowel syndrome) Depression PONV (postoperative nausea and vomiting) Wears glasses Wears dentures Thyroid disease Arthritis Anemia Restless legs Syncope History of IBS Non-smoker History of edema History of rheumatic fever Home Medications ?Medication ?Instructions ?Recorded ?Last Taken ?Type cholecalciferol (vitamin D3) 50 50 mcg PO DAILY bone 11/05/21 09/10/24 History mcg (2,000 unit) capsule (Vitamin D3) vitamin A 2,400 mcg capsule 2,400 mcg PO DAILY health 11/05/21 09/10/24 History escitalopram oxalate 20 mg tablet 20 mg PO QDAY anxiety 04/18/24 09/10/24 History (Lexapro) levothyroxine 50 mcg tablet 50 mcg PO DAILY thyroid 07/25/24 09/11/24 History oxycodone 10 mg tablet 10 mg PO Q6H PRN pain 09/03/24 09/11/24 History lidocaine-prilocaine 2.5 %-2.5 % 1 applic topical ONCE PRN port 09/11/24 Unknown Rx topical cream access 30 days #30 grams ondansetron 8 mg disintegrating 8 mg PO Q8H PRN nausea and 09/11/24 Unknown Rx tablet vomiting #30 tabs prochlorperazine maleate 10 mg 10 mg PO Q6H PRN nausea and 09/11/24 Unknown Rx tablet vomiting #30 tabs phenazopyridine 200 mg tablet 200 mg PO TID PRN pain #60 tabs 10/08/24 Unknown Rx (Pyridium) hydrocortisone acetate 25 mg 25 mg ME BID proctitis #12 ea 10/09/24 Unknown Rx rectal suppository sulfamethoxazole 800 1 tab PO BID #10 tabs 10/16/24 Unknown Rx mg-trimethoprim 160 mg tablet (Bactrim DS) hydrocortisone acetate 30 mg 25 mg ME BID #12 ea 10/18/24 Unknown Rx rectal suppository oxycodone 10 mg tablet 10 mg PO Q6H PRN pain 3 weeks #60 10/18/24 Unknown Rx tabs Allergy/AdvReac Type Severity Reaction Status Date / Time codeine Allergy Mild Nausea Verified 10/21/24 19:10 adhesive tape (surgical tape) Allergy Rash Verified 10/21/24 19:10 amoxicillin (From Augmentin) AdvReac Severe drug Verified 10/21/24 19:10 induced liver injury clavulanic acid (From AdvReac Severe drug Verified 10/21/24 19:10 Augmentin) induced liver injury Family History Father Cancer Throat Surgical History History of colonoscopy History of esophagogastroduodenoscopy (EGD) History of hysterectomy S/P endometrial ablation History of mandibular surgery S/P knee surgery History of back surgery Hx laparoscopic cholecystectomy History of Social History household members: spouse current occupational status: unemployed Smoking Status: Never smoker alcohol intake: never substance use type: does not use seatbelt use: always do you feel safe at home: Yes additional social history: - Stephen GILLETTE ROS ED ROS Narrative Constitutional: Low-grade fever, no chills. Cardiovascular: No chest pain. No palpitations. No pedal edema. Respiratory: Occasional cough, no shortness of breath. However, low pulse ox in the 80s. Abdominal: No new abdominal pain. Positive nausea. No vomiting. Genitourinary: Positive dysuria. No hematuria. Musculoskeletal: No myalgias. No arthralgias. Neurologic: Positive headaches. No dizziness. No lightheadedness. EXAM Physical Exam Narrative Exam Narrative: Afebrile. Vital signs noted. HEENT: Normocephalic. Atraumatic. PERRL, EOMI. Neck soft and supple. No point tenderness or step off. Cardiovascular: Regular rate and rhythm. No murmurs, rubs, or gallops appreciated. Respiratory: No tachypnea. Lungs clear to auscultation bilaterally. No wheezing or rales. Gastrointestinal: Abdomen soft, nontender, with normoactive bowel sounds. No rebound or guarding. Neurological: Awake. Alert. Nonfocal, nonlateralizing. Skin: No rash. Normal color. No pallor. Musculoskeletal: No pedal edema. Full range of motion extremities. Const Vital Signs: 10/21/24 19:09 10/21/24 20:58 10/21/24 21:08 Temperature 97.2 F L Temperature Source Temporal Pulse Rate 99 Respiratory Rate 17 Blood Pressure 124/83 H Blood Pressure Mean 96 Pulse Ox 98 94 Oxygen Delivery Method Room Air Room Air Room Air Oxygen Flow Rate (L/min) 10/21/24 21:40 10/21/24 21:45 10/21/24 21:52 Temperature Temperature Source Pulse Rate Respiratory Rate Blood Pressure 125/77 H Blood Pressure Mean 93 Pulse Ox 89 93 Oxygen Delivery Method Nasal Cannula Oxygen Flow Rate (L/min) 2 10/21/24 22:08 10/21/24 22:18 10/21/24 22:30 Temperature Temperature Source Pulse Rate 96 83 Respiratory Rate 12 25 H 23 H Blood Pressure 124/63 H Blood Pressure Mean 78 Pulse Ox 92 98 Oxygen Delivery Method Oxygen Flow Rate (L/min) 10/21/24 22:45 10/21/24 22:57 10/21/24 23:00 Temperature Temperature Source Pulse Rate 83 78 79 Respiratory Rate 16 15 16 Blood Pressure 124/63 H Blood Pressure Mean 83 Pulse Ox 92 92 Oxygen Delivery Method Nasal Cannula Oxygen Flow Rate (L/min) 2 10/21/24 23:15 10/21/24 23:30 10/21/24 23:46 Temperature Temperature Source Pulse Rate 83 83 Respiratory Rate 18 12 Blood Pressure 121/76 H Blood Pressure Mean 90 Pulse Ox 92 Oxygen Delivery Method Oxygen Flow Rate (L/min) 10/21/24 23:54 10/22/24 00:00 10/22/24 00:18 Temperature Temperature Source Pulse Rate 82 93 Respiratory Rate 14 19 H Blood Pressure 123/78 H Blood Pressure Mean 92 Pulse Ox 93 91 91 Oxygen Delivery Method Room Air Room Air Nasal Cannula Oxygen Flow Rate (L/min) 2 10/22/24 00:30 10/22/24 00:45 10/22/24 01:00 Temperature Temperature Source Pulse Rate 96 93 90 Respiratory Rate 22 H 20 H 15 Blood Pressure 106/69 Blood Pressure Mean 80 Pulse Ox 92 93 92 Oxygen Delivery Method Nasal Cannula Oxygen Flow Rate (L/min) 2 10/22/24 01:08 10/22/24 01:09 Temperature 97.2 F L 97.2 F L Temperature Source Oral Pulse Rate 85 90 Respiratory Rate 19 H 15 Blood Pressure 106/69 106/69 Blood Pressure Mean 81 81 Pulse Ox 92 92 Oxygen Delivery Method Nasal Cannula Oxygen Flow Rate (L/min) 2 MDM MDM MDM Narrative Medical decision making narrative: Differential diagnosis includes but not limited to pneumonia versus UTI versus anemia versus dehydration versus other electrolyte imbalance. I reviewed her laboratory work that was obtained through protocol and she is neutropenic with low white count of 2.1, but when compared to prior labs this is chronic. Hemoglobin is 8.5, and has been low in the past but seems to be dropping according to the family. Platelet count low at 77, chronic thrombocytopenia. Electrolyte panel was grossly unremarkable with a glucose 98, sodium 135, potassium 3.9, anion gap normal at 8, normal BUN of 11 and creatinine 0.71. Urinalysis is cloudy and negative for ketones. Is positive for nitrates and occult blood. There are 10-25 WBCs. Lactic acid is normal at less than 1.0 so I doubt sepsis. Chest x-ray in 1 view interpreted by myself independently shows no evidence of pneumonia, no pleural effusion. I reviewed the radiology report which confirms my independent interpretation. However, patient initially was not hypoxic, but became hypoxic here with a pulse ox in the 80s/high 80s. In order to rule out pulmonary embolism, CTA of the chest was obtained to look for a reason for her hypoxia. I reviewed the radiology report of the CTA of the chest. There is no pneumonia, pneumothorax, or pulmonary embolism. I discussed the findings with the patient and her family. I have no cause for her generalized weakness, as even with review of her urinalysis, she has positive nitrites, and 10-25 WBCs, but states she has just completed 5 days of Bactrim, taking the last dose tonight for UTI. She will be started on Rocephin. She has tolerated cephalosporins/cefazolin previously in review of her medication list. Patient was ambulated, and she had oxygen desaturation to 85% does not wear oxygen at home. Patient will be discussed with [facility] on-call, as well as the hospitalist for observation versus admission. I was able to discuss the patient with Dixie Cook the [facility] for oncology. She was informed of the need for admission for hypoxia and does not recommend transfusion. Disposition is admit in stable condition. History & Record Review Discussion w/independent historian: Patient Additional record(s) reviewed:: Prior labs Lab Data Attestation: I reviewed the patient's lab results. Labs: Laboratory Results - last 24 hr 10/21/24 10/21/24 20:35 20:45 WBC 2.1 L RBC 3.08 L Hgb 8.5 L Hct 26.7 L MCV 86.7 MCH 27.6 MCHC 31.8 L RDW Std Deviation 46.7 H RDW Coeff of Willie 15.9 H Plt Count 77 L MPV 10.0 Immature Gran % (Auto) 1.000 H Neut % (Auto) 71.1 H Lymph % (Auto) 17.8 L [place] % (Auto) 7.2 Eos % (Auto) 2.4 Baso % (Auto) 0.5 Absolute Neuts (auto) 1.5 L Absolute Lymphs (auto) 0.37 L Nucleated RBC % 0 Differential Comment SCANNED Diff Path Review May foll Platelet Estimate MOD DEC Anisocytosis 1+ Ovalocytes 1+ Acanthocytes (Spur) RARE Schistocytes RARE PT 11.8 INR 0.9 APTT TNP Sodium 135 Potassium 3.9 Chloride 104 Carbon Dioxide 22.8 Anion Gap 8 BUN 11 Creatinine 0.71 Estim Creat Clear Calc 95.39 Est GFR (MDRD) Non-Af 103 BUN/Creatinine Ratio 15.7 Glucose 98 Lactic Acid < 1.0 Calcium 8.4 Total Bilirubin 0.22 AST 23 ALT 14 Alkaline Phosphatase 101 Total Protein 5.9 Albumin 3.6 Globulin 2.3 Albumin/Globulin Ratio 1.5 Urine Color Tori Urine Clarity Sl. Cloudy Urine pH 6.0 Ur Specific [place] 1.015 Urine Protein 30 H Urine Glucose (UA) Normal Urine Ketones Negative Urine Occult Blood 25 H Urine Nitrite Positive H Urine Bilirubin 3 H Urine Urobilinogen 8 H Ur Leukocyte Esterase 500 H Urine RBC 5-10 SEEN Urine WBC 10-25 SEEN Ur Squamous Epith Cells 0-5 SEEN Urine Bacteria 1+ Urine Mucus 0 SEEN Radiography Diagnostic Testing: Clinical Impression(s) from Imaging Studies Chest X-Ray 10/21/24 21:10 IMPRESSION: NO ACUTE FINDINGS. [facility]A 10/21/24 22:03 IMPRESSION: No evidence of pulmonary embolism or acute findings in the thorax. One or more dose reduction techniques were used (e.g., Automated exposure control, adjustment of the mA and/or kV according to patient size, use of iterative reconstruction technique). Reading [facility] Discussion w/another healthcare provider: Hospitalist (Dr. Bangura) Discharge Plan Dx/Rx/DC Orders Clinical Impression: Generalized weakness, Oxygen desaturation, Cervix cancer, Pancytopenia, UTI (urinary tract infection) Disposition Disposition: Acute Care [facility]
[2024-10-21 23:10] LABS: Differential Comment SCANNED
[2024-10-21 23:11] LABS: Acanthocytes RARE; Anisocytosis 1+; Ovalocyte 1+; Pathologist Review May foll; Platelet Estimate MOD DEC (ADEQ); Schistocytes RARE
[2024-10-21] MEDS: Ondansetron 4 MG/2 ML Vial IV (23:32)
[2024-10-22] VITALS (13 sets, daily range): BP systolic 103–127; BP diastolic 59–78; PULSE 68–96; RESP 14–22; TEMP 36.2–36.8; O2SAT 91–95; BMI 33.0
--- NOTE | 2024-10-22 01:06 | PCM.HP.STD ---
HPI - General General Date of Admission: 10/22/24 Date of Service: 10/22/24 Chief Complaint: Fatigue, malaise, recent N/D 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, gastric type) s/p BEN/BSO 07/16/2024 with associated Chronic pancytopenia on continued adjuvant radiation therapy with chemosensitization with low-dose weekly cisplatin ending this month secondary to increasing pelvic pain with follow-up weekly secondary to continued close monitoring from acute treatment related toxicity, recent hold on oral iron secondary to constipation on oral narcotics during radiation phase with planned resumption once radiation complete who presents to the [facility] ED on 10/22/2024 with history of her last chemotherapy the week prior with ongoing radiation with generalized weakness and fatigue with symptoms progressing since the prior with occasional nausea without emesis, decreased appetite, diarrhea with low-grade temperatures and darkening urine with persistent self ministration of Pyridium secondary to chronic dysuria with radiation as well as decreased pulse oximeter at home per family report prompting eventual ED evaluation to be cautious. Patient reports recently completing 5 days of Bactrim antibiotic therapy with her last dose tonight for urinary tract infection. Labs outpatient included CBC with WBC 2.2, hemoglobin 8.7, MCV 87, platelets 68 with ANC 1.6 and lymphopenia with most recent CBC prior to this 10/14/2024 with WBC 2.5, hemoglobin 10.2, MCV 84.6, platelets 98 with ANC at that time 1.7, BMP with sodium 134, potassium 4.1, chloride 102, carbon oxide 22.1, anion gap 10, BUN/creatinine 14/0.64 similar to baseline, glucose 89, calcium 8.5, phosphorus 2.8, magnesium 2.0, iron 131, TIBC 339, iron saturation 39%, ferritin 362 of note also obtained on the same day. Current ED evaluation workup included T97.2, heart rate 99, BP 124/83, respiratory rate 17, 98% on room air eventually desaturating to 89% on room air at rest and 85% with ambulation attempts with improvement to 92% on 2 L nasal cannula, most recently 93% on room air, most recent repeat vitals heart rate 78, BP 124/63, respiratory rate 15, CBC with WBC 2.1, hemoglobin 8.5, platelets 77 with increased immature granulocytes with ANC 1.5, absolute lymphs 0.37, unremarkable coags, CMP unremarkable, lactic acid less than 1, urinalysis noted be cloudy, specific raphe 1.015, protein 30, occult blood 25, positive nitrite, leukocyte esterase 500 with urine WBCs 10-25, urine RBCs 5-10 with 1+ urine bacteria, urine culture pending per ED, blood culture pending per ED, chest x-ray with no acute cardiopulmonary findings, chest CTPA with no acute cardiopulmonary findings and no evidence of PE. In the ED patient administered judicious IV fluids and Zofran 4 mg IV x 1. ED discussed case with Oncology/hematology TELLER MANAGER Dixie Cook who recommended admission for further evaluation, recommended against transfusions at this time. Discussed UA findings and pending UCx with ED and patient will be administered IV Rocephin as previously tolerated cephalosporins. [facility] Medical History Dysuria Nausea Encounter for chemotherapy management Iron deficiency anemia due to chronic blood loss Encounter for education Anxiety History of steroid therapy Cervix cancer IBS (irritable bowel syndrome) Depression PONV (postoperative nausea and vomiting) Wears glasses Wears dentures Thyroid disease Arthritis Anemia Restless legs Syncope History of IBS Non-smoker History of edema History of rheumatic fever Home Medications ?Medication ?Instructions ?Recorded ?Last Taken ?Type cholecalciferol (vitamin D3) 50 50 mcg PO DAILY bone 11/05/21 09/10/24 History mcg (2,000 unit) capsule (Vitamin D3) vitamin A 2,400 mcg capsule 2,400 mcg PO DAILY health 11/05/21 09/10/24 History escitalopram oxalate 20 mg tablet 20 mg PO QDAY anxiety 04/18/24 09/10/24 History (Lexapro) levothyroxine 50 mcg tablet 50 mcg PO DAILY thyroid 07/25/24 09/11/24 History oxycodone 10 mg tablet 10 mg PO Q6H PRN pain 09/03/24 09/11/24 History lidocaine-prilocaine 2.5 %-2.5 % 1 applic topical ONCE PRN port 09/11/24 Unknown Rx topical cream access 30 days #30 grams ondansetron 8 mg disintegrating 8 mg PO Q8H PRN nausea and 09/11/24 Unknown Rx tablet vomiting #30 tabs prochlorperazine maleate 10 mg 10 mg PO Q6H PRN nausea and 09/11/24 Unknown Rx tablet vomiting #30 tabs phenazopyridine 200 mg tablet 200 mg PO TID PRN pain #60 tabs 10/08/24 Unknown Rx (Pyridium) hydrocortisone acetate 25 mg 25 mg GA BID proctitis #12 ea 10/09/24 Unknown Rx rectal suppository sulfamethoxazole 800 1 tab PO BID #10 tabs 10/16/24 Unknown Rx mg-trimethoprim 160 mg tablet (Bactrim DS) hydrocortisone acetate 30 mg 25 mg GA BID #12 ea 10/18/24 Unknown Rx rectal suppository oxycodone 10 mg tablet 10 mg PO Q6H PRN pain 3 weeks #60 10/18/24 Unknown Rx tabs Allergy/AdvReac Type Severity Reaction Status Date / Time codeine Allergy Mild Nausea Verified 10/21/24 19:10 adhesive tape (surgical tape) Allergy Rash Verified 10/21/24 19:10 amoxicillin (From Augmentin) AdvReac Severe drug Verified 10/21/24 19:10 induced liver injury clavulanic acid (From AdvReac Severe drug Verified 10/21/24 19:10 Augmentin) induced liver injury Family History Father Cancer Throat Mother No problems noted. Surgical History History of colonoscopy History of esophagogastroduodenoscopy (EGD) History of hysterectomy S/P endometrial ablation History of mandibular surgery S/P knee surgery History of back surgery Hx laparoscopic cholecystectomy History of Social History household members: spouse current occupational status: unemployed Smoking Status: Never smoker alcohol intake: never substance use type: does not use seatbelt use: always do you feel safe at home: Yes additional social history: - Bryan- Mir[place] ROS ROS Narrative Admission Review of Systems: CONSTITUTIONAL: No weight loss, + low-grade temperatures, weakness or fatigue. HEENT: Eyes: No visual loss, blurred vision, double vision or yellow sclerae. Ears, Nose, Throat: No hearing loss, sneezing, congestion, runny nose or sore throat. SKIN: No rash or itching, lesions, wounds. CARDIOVASCULAR: No chest pain, chest pressure or chest discomfort, palpitations, edema, orthopnea, syncopal events. RESPIRATORY: + Hypoxia noted outpatient but no associated marked dyspnea nor recent cough, productive sputum, wheezing or hemoptysis. GASTROINTESTINAL: + anorexia, nausea, diarrhea. No vomiting, abdominal pain, melena, BRBPR. GENITOURINARY: + Dysuria, frequency. No urgency or retention. NEUROLOGICAL: No headache, dizziness, syncope, paralysis, ataxia, numbness or tingling in the extremities, focal weakness, change in bowel or bladder control, seizure. MUSCULOSKELETAL:+muscle, back pain, joint pain or stiffness. HEMATOLOGIC: + Chronic anemia, easy bleeding/bruising. LYMPHATICS: No enlarged nodes. No history of splenectomy. PSYCHIATRIC: + History of anxiety and depression. ENDOCRINOLOGIC: No reports of sweating, cold or heat intolerance. No polyuria or polydipsia. ALLERGIES: No history of asthma, hives, eczema or rhinitis. Vital Signs Vital Signs Vital Signs: 10/21/24 19:09 10/21/24 20:58 10/21/24 21:08 Temperature 97.2 F L Temperature Source Temporal Pulse Rate 99 Respiratory Rate 17 Blood Pressure 124/83 H Blood Pressure Mean 96 Pulse Ox 98 94 Oxygen Delivery Method Room Air Room Air Room Air Oxygen Flow Rate (L/min) 10/21/24 21:40 10/21/24 21:45 10/21/24 21:52 Temperature Temperature Source Pulse Rate Respiratory Rate Blood Pressure 125/77 H Blood Pressure Mean 93 Pulse Ox 89 93 Oxygen Delivery Method Nasal Cannula Oxygen Flow Rate (L/min) 2 10/21/24 22:08 10/21/24 22:18 10/21/24 22:30 Temperature Temperature Source Pulse Rate 96 83 Respiratory Rate 12 25 H 23 H Blood Pressure 124/63 H Blood Pressure Mean 78 Pulse Ox 92 98 Oxygen Delivery Method Oxygen Flow Rate (L/min) 10/21/24 22:45 10/21/24 22:57 10/21/24 23:00 Temperature Temperature Source Pulse Rate 83 78 79 Respiratory Rate 16 15 16 Blood Pressure 124/63 H Blood Pressure Mean 83 Pulse Ox 92 92 Oxygen Delivery Method Nasal Cannula Oxygen Flow Rate (L/min) 2 10/21/24 23:15 10/21/24 23:30 10/21/24 23:46 Temperature Temperature Source Pulse Rate 83 83 Respiratory Rate 18 12 Blood Pressure 121/76 H Blood Pressure Mean 90 Pulse Ox 92 Oxygen Delivery Method Oxygen Flow Rate (L/min) 10/21/24 23:54 10/22/24 00:00 10/22/24 00:18 Temperature Temperature Source Pulse Rate 82 93 Respiratory Rate 14 19 H Blood Pressure 123/78 H Blood Pressure Mean 92 Pulse Ox 93 91 91 Oxygen Delivery Method Room Air Room Air Nasal Cannula Oxygen Flow Rate (L/min) 2 10/22/24 00:30 10/22/24 00:45 10/22/24 01:00 Temperature Temperature Source Pulse Rate 96 93 90 Respiratory Rate 22 H 20 H 15 Blood Pressure 106/69 Blood Pressure Mean 80 Pulse Ox 92 93 92 Oxygen Delivery Method Nasal Cannula Oxygen Flow Rate (L/min) 2 Weight Weight: 182 lb Body Mass Index (BMI) 32.2 Physical Exam Narrative Physical Examination: General: Awake, alert, oriented x 3 and cooperative, laying in the ED bed, fatigued and ill-appearing. Skin: Normal color, normal turgor, no icterus, no cyanosis except occasional stage ecchymoses. HEENT: AT/NC, EOMI, PERRLA, moderately dry MM, no carotid bruits or JVD noted. Lungs: Mildly diminished, greater bases, appropriate effort, no evidence of any distress, no rales, ronchi or wheezing. Heart: Improved, regular rate and rhythm; no gallop, rub audible. Abdomen: Soft, NTTP, ND, no marked suprapubic discomfort with palpation, distant normal BS, no appreciated HSM. Extremities: No cyanosis, clubbing, or edema. Neurological: Patient awake, alert, oriented as noted, cognitive function intact; pupils equally reactive to light and accommodation, cranial nerves gross normal, moving all 4 extremities, no focal deficits, strength moderately to severely globally decreased secondary to acute presentation preserved. Psychiatric: Affect appears flat, fatigued, ill-appearing, no acute evidence of depressive or anxiety feelings but does have underlying history. Results Lab / Micro Data 10/21/24 20:35 10/21/24 20:35 Labs: Laboratory Results - last 24 hr 10/21/24 20:35: WBC 2.1 L, RBC 3.08 L, Hgb 8.5 L, Hct 26.7 L, MCV 86.7, MCH 27.6, MCHC 31.8 L, RDW Std Deviation 46.7 H, RDW Coeff of Willie 15.9 H, Plt Count 77 L, MPV 10.0, Immature Gran % (Auto) 1.000 H, Neut % (Auto) 71.1 H, Lymph % (Auto) 17.8 L, Elliott % (Auto) 7.2, Eos % (Auto) 2.4, Baso % (Auto) 0.5, Absolute Neuts (auto) 1.5 L, Absolute Lymphs (auto) 0.37 L, Nucleated RBC % 0, Differential Comment SCANNED, Diff Path Review December, Platelet Estimate MOD DEC, Anisocytosis 1+, Ovalocytes 1+, Acanthocytes (Spur) RARE, Schistocytes RARE, PT 11.8, INR 0.9, APTT TNP, Sodium 135, Potassium 3.9, Chloride 104, Carbon Dioxide 22.8, Anion Gap 8, BUN 11, Creatinine 0.71, Estim Creat Clear Calc 95.39, Est GFR (MDRD) Non-Af 103, BUN/Creatinine Ratio 15.7, Glucose 98, Lactic Acid < 1.0, Calcium 8.4, Total Bilirubin 0.22, AST 23, ALT 14, Alkaline Phosphatase 101, Total Protein 5.9, Albumin 3.6, Globulin 2.3, Albumin/Globulin Ratio 1.5 10/21/24 20:45: Urine Color Tori, Urine Clarity Sl. Cloudy, Urine pH 6.0, Ur Specific [place] 1.015, Urine Protein 30 H, Urine Glucose (UA) Normal, Urine Ketones Negative, Urine Occult Blood 25 H, Urine Nitrite Positive H, Urine Bilirubin 3 H, Urine Urobilinogen 8 H, Ur Leukocyte Esterase 500 H, Urine RBC 5-10 SEEN, Urine WBC 10-25 SEEN, Ur Squamous Epith Cells 0-5 SEEN, Urine Bacteria 1+, Urine Mucus 0 SEEN Imaging Radiology Impression Chest X-Ray 10/21/24 21:10 IMPRESSION: NO ACUTE FINDINGS. Reading Location: [facility] Chest CTA 10/21/24 22:03 IMPRESSION: No evidence of pulmonary embolism or acute findings in the thorax. One or more dose reduction techniques were used (e.g., Automated exposure control, adjustment of the mA and/or kV according to patient size, use of iterative reconstruction technique). [facility] Assessment & Plan Assessment/Plan (1) UTI (urinary tract infection): PLAN: Plan The patient is a 49 y/o F w/ PMHx: CKD stage I per GFR trending, Chronic anemia/Fe deficiency anemia, Hypothyroidism, Chronic pain syndrome, Obesity, RLS, Anxiety and Depression, Carcinoma of the cervix at least stage IIA (moderately differentiated adenocarcinoma favoring cervical carcinoma HPV independent, gastric type) s/p BEN/BSO 07/16/2024 with associated Chronic pancytopenia on continued adjuvant radiation therapy and chemotherapy with last the week prior who presents to the [facility] ED on 10/22/2024 with generalized weakness and fatigue with symptoms progressing since the prior with occasional nausea without emesis, decreased appetite, diarrhea with low-grade temperatures and darkening urine with persistent self ministration of Pyridium secondary to chronic dysuria with radiation as well as decreased pulse oximeter at home per family report prompting eventual ED evaluation to be cautious. #1. Recent Acute Nausea, Diarrhea, possible gastroenteritis versus related with chemotherapy versus Acute Complicated UTI, failed recent abx therapy: Given stable vital signs will admit to medical surgical floor on telemetry, will continue judicious hydration, if recurrent diarrhea will obtain C. difficile and enteric pathogens to be cautious, notable recent community outbreaks of norovirus, diarrhea recently improved but still nausea and emesis, UA notable, UCx pending, will continue on IV Rocephin as his previously tolerated cephalosporins, will initiate at least on clears until nausea and emesis are improving with advancement of diet as tolerated, will maintain on IV PPI additionally in the interim. PT/OT/case management consulted for discharge planning. #2. Acute hypoxia of unclear etiology, potentially related with her acute presentation as noted #1 but uncertain: Admission chest x-ray and CTPA unremarkable, will obtain rapid COVID PCR as well as full respiratory viral panel, induce sputum if able, encourage aggressive incentive spirometry, will judiciously hydrate and repeat chest x-ray late am to ensure no developing pneumonia to be cautious. #3. Carcinoma of the cervix at least stage IIA (moderately differentiated adenocarcinoma favoring cervical carcinoma HPV independent, gastric type) with acute on chronic pancytopenia, neutropenia: Patient s/p BEN/BSO 07/16/2024 with associated Chronic pancytopenia on continued adjuvant radiation therapy with chemosensitization with low-dose weekly cisplatin ending this month secondary to increasing pelvic pain with follow-up weekly secondary to continued close monitoring from acute treatment related toxicity, admission CBC with WBC 2.1, hemoglobin 8.5 decreased from previous and platelet count 77 also decreasing, will continue evaluation and treatment as noted, maintain on neutropenic precautions, trend CBC, magnesium and phosphorus levels requested. Encourage continued outpatient follow-up with hematology/oncology as previously arranged. #4. Acute on chronic microcytic anemia: Admission hemoglobin 8.5, MCV 86.7, most recent previous to this 10/21/2024 hemoglobin 8.7, MCV 87 and previous to this 10/14/2024 hemoglobin 10.2, MCV 84.6, baseline previously has primarily been 10-12 range, known underlying history of iron deficiency anemia. Iron panel, ferritin as well as guaiac requested. #5. Chronic Kidney Disease Stage I per GFR trending: Admission BUN/Cr 11/0.71, GFR currently 103 with baseline primarily 90 range, baseline renal function primarily 0.6-0.7, repeat BMP in AM. #6. Obesity: Weight loss and lifestyle changes encouraged. #7. GERD: As noted above will maintain on IV PPI until nausea/emesis resolving. #8. Anxiety and depression: We will continue patient on escitalopram regimen. #9. DVT prophylaxis: SCDs given worsened anemia, thrombocytopenia. #10. CODE status: Patient CHULA is her who is present and living will is currently in place. Discussed CODE status at length including difference between FULL code, DNR-CCA and DNR-CC status. Following discussions about the differences in these status, requested Full Code status. Advanced Care Planning Face to Face Time: 16 minutes. Charges/Coding Visit Charges Inpatient E&M: 76221 Init Hosp L3 Procedures Hospitalists Procedures: 34527 Advncd Care Plan 30 Min
[2024-10-22] MEDS: Ceftriaxone 1 GM/50 ML BAG IV ×2 (01:40→22:08)
[2024-10-22 02:21] LABS: Ferritin 315 ng/mL (22-378); Iron 94 ug/dL (50-170); Iron Binding Capacity,Total 332 ug/dL (250-450); Iron Binding Capacity,Unsat 238 ug/dL (228-428)
[2024-10-22] MEDS: oxyCODONE 5 MG Tablet 10 MG PO ×4 (02:48→22:47)
[2024-10-22] MEDS: 0.9% Normal Saline (1000mL) 1,000 ML 100 ML IV (02:48)
[2024-10-22] MEDS: Pantoprazole Sodium 40 MG in 0.9% Normal Saline (100mL MB+) 100 ML 330 MG IV ×3 (02:48→21:26)
[2024-10-22] MEDS: Levothyroxine 50 MCG Tablet PO (05:43)
[2024-10-22] MEDS: Phenazopyridine 95 MG Tablet 190 MG PO ×2 (06:03→12:23)
[2024-10-22 07:21] LABS: Absolute Lymphocyte Count 0.38 X10^3/uL (0.83-4.51); Absolute Neutrophil Count 1.1 X10^3/uL (2.0-7.7); Basophil# 0.01 X10^3/uL; Basophil% 0.6 % (0-1); Eosinophil# 0.05 X10^3/uL; Eosinophils% 3.1 % (0-5); Hematocrit 23.2 % (37-47); Hemoglobin 7.5 g/dL (12.0-15.0); Lymphocyte # 0.38 X10^3/ul (0.83-4.51); Lymphocyte % 23.6 % (19-41); Mean Corp Hgb Conc 32.3 g/dL (32-36); Mean Corpuscular Hgb 28.4 pg (27.0-32.0); Mean Corpuscular Volume 87.9 fL (81-99); Mean Platelet Vol. 11.1 fl (6.2-12.0); Monocyte# 0.11 X10^3/uL; Monocyte% 6.8 % (0-10); NRBC Flagged by Analyzer 0 % (0-5); Neutrophil # 1.05 X10^3/uL (2.7-7.7); Neutrophil % 65.3 % (47-70); POSITIVE COUNT YES; POSITIVE DIFFERENTIAL YES; Platelet Count 66 K/mm3 (150-450); RBC Distribution Width CV 16.4 % (11.6-14.6); RBC Distribution Width SD 48.3 fl (35.1-43.9); Red Blood Count 2.64 M/mm3 (4.2-5.4); White Blood Count 1.6 K/mm3 (4.4-11.0)
[2024-10-22 07:23] LABS: Differential Indicated SCAN CRITERIA MET
[2024-10-22 08:09] LABS: ALB/GLOB Ratio 1.6 RATIO (0.9-2.4); AST(SGOT) 91 U/L (<=31); Alanine Aminotransfer ALT/SGPT 46 U/L (<=34); Albumin, Serum 3.1 g/dL (3.5-5.0); Alkaline Phosphatase 172 U/L (35-104); Anion Gap 8 (5-15); BUN 8 mg/dL (4-19); BUN/Creat Ratio 13.3 RATIO (10-20); Carbon Dioxide 21.9 mmol/L (21.0-32.0); Chloride 108 mmol/L (98-108); EST Glomerular Filtration Rate 109 (>60); Estimated Creatinine Clearance 114.39 ml/min (50-250); Glucose 91 mg/dL (70-99); Potassium 4.1 mmol/L (3.3-5.1); Protein, Total 5.1 g/dL (5.9-8.4); Sodium Level 138 mmol/L (133-145); Total Bilirubin 0.29 mg/dL (0.00-1.30)
[2024-10-22 08:55] LABS: Pathologist Review May foll; Platelet Estimate MOD DEC (ADEQ)
[2024-10-22] MEDS: Acetaminophen 325 MG Tablet 650 MG PO ×2 (09:00→15:01)
[2024-10-22] MEDS: Escitalopram Oxalate 20 MG Tablet PO (09:00)
[2024-10-22] MEDS: Hydrocortisone 25 MG Suppository RC ×2 (09:02→21:28)
--- NOTE | 2024-10-22 10:00 | RAD_ITS ---
PROCEDURE: CHEST PA AND LATERAL 10/22/2024 REASON FOR EXAM: HYPOXIA, DYSPNEA TECHNIQUE: Frontal and lateral views of the chest. COMPARISON: Comparison is made with prior study dated October 21, 2024. FINDINGS: A left-sided port a catheter is seen with the tip in the midportion of the superior vena cava. Lungs are clear. The patient is status post cholecystectomy. Degenerative changes of the visualized dorsal spine. RAD/Chest PA and Lateral IMPRESSION: NO ACUTE FINDINGS. Reading Location: [facility]
--- NOTE | 2024-10-22 12:02 | CASEMGMT ---
JOSE BELTRE Assessment Face to Face with patient for initial transition planning/care coordination assessment. JOSE BELTRE introduced self and role at [facility], pt voices understanding. Pt is A&Ox4 and is resting comfortably in bed and is calm. Pt at bedside. Care providers, pharmacy, and demographics verified. Admitting dx: UTI, N/V/D, Hypoxia, Pancytopenia LACE Strata: 3 PCP: Claudette Alexandra Specialists: Denies Preferred Pharmacy: [facility] Insurance: [facility] [employer] ([employer]) [facility] Prescription Benefit: Denies. 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 Pulse ox. Pt was recently requiring additional oxygen and may qualify for home oxygen use. A verbal list of local in-network DME companies were provided to the pt at this time. Pt prefers [facility] HHC/SNF: Denies Hx or needs Pt?s goal: Home Plan: Home with pt family once medically ready, anticipate no additional needs e/f potential oxygen. 6-Click score is 23. PT is ordered and pending. At this time, the pt denies the need for HHC or OP Tx. Pt states that she feels safe returning home with her family and denies further concerns at this time. Report given to COLLEGE PRESIDENT CM. Chung Wilcox RN, CM
--- NOTE | 2024-10-22 13:05 | PN_ITS ---
Subjective Subjective Patient seen and examined. She admits to burning with urination. She denied any fever, chills, cough, chest pain or any other symptoms. Review of systems is otherwise negative. Objective Data Objective Data Vital Signs: Vital Signs Temp Pulse Resp BP Pulse Ox O2 Del Method O2 Flow Rate 97.4 F L 70 18 117/59 L 95 Room Air 2 10/22/24 09:11 10/22/24 09:11 10/22/24 09:11 10/22/24 09:11 10/22/24 09:19 10/22/24 09:19 10/22/24 05:30 Oxygen Flow Rate (L/min) 2 Oxygen Delivery Method Room Air Weight: 186 lb 11.704 oz Body Mass Index (BMI) 33.0 Intake & Output: Intake and Output for Last 24 Hours 10/20/24 10/21/24 10/22/24 23:59 23:59 23:59 Intake Total 1477.5 / 1477.5 Balance 1477.5 / 1477.5 Lab / Micro Data 10/22/24 06:59 10/22/24 06:59 Labs: Laboratory Results - last 24 hr 10/21/24 20:35: WBC 2.1 L, RBC 3.08 L, Hgb 8.5 L, Hct 26.7 L, MCV 86.7, MCH 27.6, MCHC 31.8 L, RDW Std Deviation 46.7 H, RDW Coeff of Willie 15.9 H, Plt Count 77 L, MPV 10.0, Immature Gran % (Auto) 1.000 H, Neut % (Auto) 71.1 H, Lymph % (Auto) 17.8 L, [place] % (Auto) 7.2, Eos % (Auto) 2.4, Baso % (Auto) 0.5, Absolute Neuts (auto) 1.5 L, Absolute Lymphs (auto) 0.37 L, Nucleated RBC % 0, Differential Comment SCANNED, Diff Path Review May foll, Platelet Estimate MOD DEC, Anisocytosis 1+, Ovalocytes 1+, Acanthocytes (Spur) RARE, Schistocytes RARE, PT 11.8, INR 0.9, APTT TNP, Sodium 135, Potassium 3.9, Chloride 104, Carbon Dioxide 22.8, Anion Gap 8, BUN 11, Creatinine 0.71, Estim Creat Clear Calc 95.39, Est GFR (MDRD) Non-Af 103, BUN/Creatinine Ratio 15.7, Glucose 98, Lactic Acid < 1.0, Calcium 8.4, Phosphorus 3.0, Magnesium 2.0, Iron 94, TIBC 332, Iron Saturation 28.0, Unsaturated IBC 238, Ferritin 315, Total Bilirubin 0.22, AST 23, ALT 14, Alkaline Phosphatase 101, Total Protein 5.9, Albumin 3.6, Globulin 2.3, Albumin/Globulin Ratio 1.5 10/21/24 20:45: Urine Color Tori, Urine Clarity Sl. Cloudy, Urine pH 6.0, Ur Specific [place] 1.015, Urine Protein 30 H, Urine Glucose (UA) Normal, Urine Ketones Negative, Urine Occult Blood 25 H, Urine Nitrite Positive H, Urine Bilirubin 3 H, Urine Urobilinogen 8 H, Ur Leukocyte Esterase 500 H, Urine RBC 5- 10 SEEN, Urine WBC 10-25 SEEN, Ur Squamous Epith Cells 0-5 SEEN, Urine Bacteria 1+, Urine Mucus 0 SEEN 10/22/24 06:59: WBC 1.6 L, RBC 2.64 L, Hgb 7.5 L, Hct 23.2 L, MCV 87.9, MCH 28.4, MCHC 32.3, RDW Std Deviation 48.3 H, RDW Coeff of Willie 16.4 H, Plt Count 66 L, MPV 11.1, Immature Gran % (Auto) 0.600, Neut % (Auto) 65.3, Lymph % (Auto) 23.6, [place] % (Auto) 6.8, Eos % (Auto) 3.1, Baso % (Auto) 0.6, Absolute Neuts (auto) 1.1 L, Absolute Lymphs (auto) 0.38 L, Nucleated RBC % 0, Differential Comment COMMENT, Diff Path Review December foll, Platelet Estimate MOD DEC, Sodium 138, Potassium 4.1, Chloride 108, Carbon Dioxide 21.9, Anion Gap 8, BUN 8, C reatinine 0.60 L, Estim Creat Clear Calc 114.39, Est GFR (MDRD) Non-Af 109, BUN/Creatinine Ratio 13.3, Glucose 91, Calcium 8.0, Total Bilirubin 0.29, AST 91 H, ALT 46 H, Alkaline Phosphatase 172 H, Total Protein 5.1 L, Albumin 3.1 L, G lobulin 2.0 L, Albumin/Globulin Ratio 1.6 Micro: Microbiology 10/22/24 02:11 Mucosa - Nasopharyngeal Respiratory Panel (PCR) - Final 10/22/24 02:11 Mucosa - Nasopharyngeal Coronavirus COVID-19 PCR - Final Radiography Diagnostic Testing: Radiology Impression Chest X-Ray 10/21/24 21:10 IMPRESSION: NO ACUTE FINDINGS. Reading Location: [facility] [place] Chest CTA 10/21/24 22:03 IMPRESSION: No evidence of pulmonary embolism or acute findings in the thorax. One or more dose reduction techniques were used (e.g., Automated exposure control, adjustment of the mA and/or kV according to patient size, use of iterative reconstruction technique). Reading Location: [facility] Chest X-Ray 10/22/24 10:00 IMPRESSION: NO ACUTE FINDINGS. Reading Location: [facility] Physical Exam Const alert and oriented x3 General Appearance: cooperative HEENT normocephalic, head/scalp atraumatic and moist oral mucous membranes Eyes PERRL and EOMs intact bilaterally Neck no lymphadenopathy and supple Lymph Lymphatic: no lymphadenopathy noted Resp Resp Narrative: mildly diminished breath sounds bibasally, no wheezes or crackles. On room air. Cardio regular rate, regular rhythm, S1 normal heart sound, S2 normal heart sound and no murmurs GI normal to inspection, nondistended, normoactive bowel sounds, soft to palpation, non-tender and non-distended Extremity normal capillary refill, no clubbing, cyanosis or edema and no calf tenderness General Extremity: no tenderness to palpation of joints or extremities Neuro CN's II-XII intact bilaterally, no focal motor deficits and no sensory deficits noted Motor Exam: strength 5/5 throughout and general weakness Psych thought process normal and cooperative Appearance: appropriate Assessment & Plan Assessment/Plan (1) UTI (urinary tract infection): (2) Pancytopenia: (3) Generalized weakness: PLAN: Plan #Acute complicated UTI * failed outpatient antibiotic therapy. * being hydrated with iVF * had diarrhea on admission also. C Diff and enteric pathogen panel ordered. * urine culture pending * on IV ceftriaxone. * #Hypoxia * etiology unclear. * respiratory panel negative. * check BNP * breathing treatment with bronchodilators * titrate oxygen to maintain sats >90% * currently on room air. * #Adenocarcinoma of the cervix (stage IIA) * s/p BEN and BSO on 07/16/2024 with associated chronic pancytopenia. * on adjuvant radiation therapy with chemosensitization and low dose weekly cisplatin chemotherapy * had radiation today * #Acute on chronic pancytopenia * Hb is 7.5 and 1.6, with platelets of 66. indices have dropped relative to yesterday. * likely due to cervical carcinoma * #Elevated liver enzymes * AST and ALT are elevated at 91 and 46, with ALP of 172. * Liver ultrasound from August 06, 2024 showed normal homogenous liver with no intrahepatic biliary duct dilatation and evidence of prior cholecystectomy. * May be due to cancer and the chemoradiation she had received. * Will trend. * #GERD: on PPI #Anxiety and depression: on escitalopram. #Depression: on escitalopram #Hypothyroidism: on synthroid. DVT prophylaxis: SCDs. Charges/Coding Visit Charges Inpatient E&M: 44816 Subs Hosp L2
[2024-10-22] MEDS: Ondansetron 4 MG/2 ML Vial IV (17:07)
[2024-10-23] VITALS (11 sets, daily range): BP systolic 104–155; BP diastolic 62–93; PULSE 75–99; RESP 18; TEMP 36.1–36.8; O2SAT 91–96; BMI 33.1
[2024-10-23] MEDS: Levothyroxine 50 MCG Tablet PO (05:01)
[2024-10-23 06:27] LABS: Absolute Lymphocyte Count 0.29 X10^3/uL (0.83-4.51); Absolute Neutrophil Count 0.9 X10^3/uL (2.0-7.7); Basophil# 0.01 X10^3/uL; Basophil% 0.7 % (0-1); Eosinophil# 0.03 X10^3/uL; Eosinophils% 2.2 % (0-5); Hematocrit 21.5 % (37-47); Hemoglobin 6.9 g/dL (12.0-15.0); Lymphocyte # 0.29 X10^3/ul (0.83-4.51); Lymphocyte % 21.3 % (19-41); Mean Corp Hgb Conc 32.1 g/dL (32-36); Mean Corpuscular Hgb 28.2 pg (27.0-32.0); Mean Corpuscular Volume 87.8 fL (81-99); Mean Platelet Vol. 10.5 fl (6.2-12.0); Monocyte# 0.08 X10^3/uL; Monocyte% 5.9 % (0-10); NRBC Flagged by Analyzer 0 % (0-5); Neutrophil # 0.93 X10^3/uL (2.7-7.7); Neutrophil % 68.4 % (47-70); POSITIVE COUNT YES; POSITIVE DIFFERENTIAL YES; Platelet Count 70 K/mm3 (150-450); RBC Distribution Width CV 16.8 % (11.6-14.6); RBC Distribution Width SD 48.6 fl (35.1-43.9); Red Blood Count 2.45 M/mm3 (4.2-5.4)
[2024-10-23 06:51] LABS: ALB/GLOB Ratio 1.5 RATIO (0.9-2.4); AST(SGOT) 34 U/L (<=31); Alanine Aminotransfer ALT/SGPT 36 U/L (<=34); Alkaline Phosphatase 169 U/L (35-104); Anion Gap 6 (5-15); BUN 8 mg/dL (4-19); BUN/Creat Ratio 13.7 RATIO (10-20); Calcium,Total 8.1 mg/dL (7.6-11.0); Carbon Dioxide 23.7 mmol/L (21.0-32.0); Chloride 107 mmol/L (98-108); Creatinine, Serum 0.57 mg/dL (0.70-1.20); EST Glomerular Filtration Rate 110 (>60); Estimated Creatinine Clearance 120.55 ml/min (50-250); Glucose 94 mg/dL (70-99); Potassium 4.1 mmol/L (3.3-5.1); Sodium Level 136 mmol/L (133-145); Total Bilirubin 0.21 mg/dL (0.00-1.30)
[2024-10-23 07:03] LABS: Differential Indicated SCAN CRITERIA MET; White Blood Count 1.4 K/mm3 (4.4-11.0)
[2024-10-23] MEDS: Ondansetron 4 MG/2 ML Vial IV (07:48)
[2024-10-23] MEDS: Phenazopyridine 95 MG Tablet 190 MG PO ×2 (07:48→18:06)
[2024-10-23] MEDS: oxyCODONE 5 MG Tablet 10 MG PO ×3 (07:48→22:14)
[2024-10-23] MEDS: Acetaminophen 325 MG Tablet 650 MG PO ×3 (07:49→22:13)
[2024-10-23] MEDS: Pantoprazole Sodium 40 MG in 0.9% Normal Saline (100mL MB+) 100 ML 330 MG IV ×2 (07:49→21:18)
[2024-10-23 07:59] LABS: Anisocytosis 1+; Pathologist Review May foll
[2024-10-23] MEDS: Escitalopram Oxalate 20 MG Tablet PO (10:42)
[2024-10-23] MEDS: Hydrocortisone 25 MG Suppository RC ×2 (10:42→21:18)
--- NOTE | 2024-10-23 11:17 | PN_ITS ---
Subjective Subjective Patient seen and examined. Her is by her bedside. She had no active complaints. She had radiation yesterday. WBC is down to 1.4 hemoglobin is down to 6.9 today. Review of systems otherwise negative. Objective Data Objective Data Vital Signs: Vital Signs Temp Pulse Resp BP Pulse Ox O2 Del Method O2 Flow Rate 97.8 F 85 18 136/73 H 91 Room Air 2 10/23/24 10:50 10/23/24 10:50 10/23/24 10:50 10/23/24 10:50 10/23/24 10:50 10/23/24 10:50 10/22/24 05:30 Oxygen Flow Rate (L/min) 2 Oxygen Delivery Method Room Air Weight: 187 lb 2.759 oz Body Mass Index (BMI) 33.1 Intake & Output: Intake and Output for Last 24 Hours 10/21/24 10/22/24 10/23/24 23:59 23:59 23:59 Intake Total 2917.5 / 3037.5 350 / 350 Balance 2917.5 / 3037.5 350 / 350 Lab / Micro Data 10/23/24 06:09 10/23/24 06:09 Labs: Laboratory Results - last 24 hr 10/21/24 09:54: Blood Type A POSITIVE, Antibody Screen NEGATIVE, Crossmatch See Detail 10/23/24 06:09: WBC 1.4 L*, RBC 2.45 L, Hgb 6.9 L, Hct 21.5 L, MCV 87.8, MCH 28.2, MCHC 32.1, RDW Std Deviation 48.6 H, RDW Coeff of Wilile 16.8 H, Plt Count 70 L, MPV 10.5, Immature Gran % (Auto) 1.500 H, Neut % (Auto) 68.4, Lymph % (Auto) 21.3, [place] % (Auto) 5.9, Eos % (Auto) 2.2, Baso % (Auto) 0.7, Absolute Neuts (auto) 0.9 L, Absolute Lymphs (auto) 0.29 L, Nucleated RBC % 0, Diff Path Review May foll, Anisocytosis 1+, Sodium 136, Potassium 4.1, Chloride 107, Carbon Dioxide 23.7, Anion Gap 6, BUN 8, Creatinine 0.57 L, Estim Creat Clear Calc 120.55, Est GFR (MDRD) Non-Af 110, BUN/Creatinine Ratio 13.7, Glucose 94, Calcium 8.1, Total Bilirubin 0.21, AST 34 H, ALT 36 H, Alkaline Phosphatase 169 H, Total Protein 5.0 L, Albumin 3.0 L, Globulin 2.0 L, Albumin/Globulin Ratio 1.5 Micro: Microbiology 10/22/24 02:11 Mucosa - Nasopharyngeal Respiratory Panel (PCR) - Final 10/22/24 02:11 Mucosa - Nasopharyngeal Coronavirus COVID-19 PCR - Final Physical Exam Const alert and oriented x3 General Appearance: cooperative HEENT normocephalic, head/scalp atraumatic and moist oral mucous membranes Eyes PERRL and EOMs intact bilaterally Neck no lymphadenopathy and supple Lymph Lymphatic: no lymphadenopathy noted Resp Resp Narrative: mildly diminished breath sounds bibasally, no wheezes or crackles. On room air. Cardio regular rate, regular rhythm, S1 normal heart sound, S2 normal heart sound and no murmurs GI normal to inspection, nondistended, normoactive bowel sounds, soft to palpation, non-tender and non-distended Extremity normal capillary refill, no clubbing, cyanosis or edema and no calf tenderness General Extremity: no tenderness to palpation of joints or extremities Neuro CN's II-XII intact bilaterally, no focal motor deficits and no sensory deficits noted Motor Exam: strength 5/5 throughout and general weakness Psych thought process normal and cooperative Appearance: appropriate Assessment & Plan Assessment/Plan (1) UTI (urinary tract infection): (2) Pancytopenia: (3) Generalized weakness: PLAN: Plan #Acute complicated UTI * failed outpatient antibiotic therapy. * being hydrated with iVF * had diarrhea on admission also. C Diff and enteric pathogen panel ordered. * urine culture pending * on IV ceftriaxone. * #Hypoxia * resolved * respiratory panel negative. * check BNP * breathing treatment with bronchodilators * titrate oxygen to maintain sats >90% * currently on room air. * #Adenocarcinoma of the cervix (stage IIA) * s/p BEN and BSO on 07/16/2024 with associated chronic pancytopenia. * on adjuvant radiation therapy with chemosensitization and low dose weekly cisplatin chemotherapy * had radiation today * #Acute on chronic pancytopenia * Hemoglobin today is 6.9 with WBC being 1.4 and platelets of 70. * Likely due to the chemotherapy she recently had for the cervical cancer. * Will transfuse 1 unit of packed red blood cells. Absolute neutrophil count is 0.9. * Hb is 7.5 and 1.6, with platelets of 66. indices have dropped relative to yesterday. * likely due to cervical carcinoma * Will transfuse with a unit of packed red blood cells today. Patient asked if she could have blood transfusion with blood that did not contain any vaccines. I informed patient that this was not possible. She also asked if his sister could come to donate blood for her. I explained to her that this was an acute situation and waiting for her sister to come in and get typed and screened to make sure she was a match for her as well as her sisters blood being screened by the blood bank would be quite a lengthy process. She was counseled to discuss this option with her PCP and oncologist so that they could start the process of having assisted screening to see if she could donate blood for her. * #Elevated liver enzymes * liver enzymes still remain elevated. * Liver ultrasound from August 06, 2024 showed normal homogenous liver with no intrahepatic biliary duct dilatation and evidence of prior cholecystectomy. * May be due to cancer and the chemoradiation she had received. * Will trend. * #GERD: on PPI #Anxiety and depression: on escitalopram. #Depression: on escitalopram #Hypothyroidism: on synthroid. DVT prophylaxis: SCDs. Charges/Coding Visit Charges Inpatient E&M: 13993 Subs Hosp L2
--- NOTE | 2024-10-23 18:13 | NURSING ---
Attempted to access port per patient request. Unable to access port.
[2024-10-23] MEDS: Ceftriaxone 1 GM/50 ML BAG IV (22:18)
[2024-10-24 02:53] VITALS: BP 91/61; PULSE 78; RESP 18; TEMP 36.7; O2SAT 91
[2024-10-24 03:58] VITALS: BMI 33.6
[2024-10-24 05:00] VITALS: BP 113/67; PULSE 72; RESP 18; TEMP 36.7; O2SAT 91
[2024-10-24] MEDS: Levothyroxine 50 MCG Tablet PO (05:15)
[2024-10-24 06:04] LABS: Absolute Lymphocyte Count 0.27 X10^3/uL (0.83-4.51); Absolute Neutrophil Count 0.8 X10^3/uL (2.0-7.7); Basophil# 0.01 X10^3/uL; Basophil% 0.8 % (0-1); Eosinophil# 0.05 X10^3/uL; Eosinophils% 3.9 % (0-5); Hematocrit 24.2 % (37-47); Hemoglobin 7.9 g/dL (12.0-15.0); Lymphocyte # 0.27 X10^3/ul (0.83-4.51); Lymphocyte % 21.1 % (19-41); Mean Corp Hgb Conc 32.6 g/dL (32-36); Mean Corpuscular Hgb 28.6 pg (27.0-32.0); Mean Corpuscular Volume 87.7 fL (81-99); Monocyte# 0.11 X10^3/uL; Monocyte% 8.6 % (0-10); NRBC Flagged by Analyzer 0 % (0-5); Neutrophil # 0.83 X10^3/uL (2.7-7.7); Neutrophil % 64.8 % (47-70); POSITIVE COUNT YES; POSITIVE DIFFERENTIAL YES; Platelet Count 75 K/mm3 (150-450); RBC Distribution Width CV 17.1 % (11.6-14.6); RBC Distribution Width SD 48.5 fl (35.1-43.9); Red Blood Count 2.76 M/mm3 (4.2-5.4)
[2024-10-24 06:43] LABS: Differential Indicated SCAN CRITERIA MET; White Blood Count 1.3 K/mm3 (4.4-11.0)
[2024-10-24 07:00] VITALS: BP 116/69; PULSE 73; RESP 18; TEMP 36.7; O2SAT 92
[2024-10-24 07:08] LABS: ALB/GLOB Ratio 1.5 RATIO (0.9-2.4); AST(SGOT) 23 U/L (<=31); Alanine Aminotransfer ALT/SGPT 30 U/L (<=34); Albumin, Serum 3.2 g/dL (3.5-5.0); Alkaline Phosphatase 164 U/L (35-104); Anion Gap 8 (5-15); BUN 6 mg/dL (4-19); BUN/Creat Ratio 11.5 RATIO (10-20); Calcium,Total 8.2 mg/dL (7.6-11.0); Carbon Dioxide 24.8 mmol/L (21.0-32.0); Chloride 106 mmol/L (98-108); Creatinine, Serum 0.56 mg/dL (0.70-1.20); EST Glomerular Filtration Rate 110 (>60); Estimated Creatinine Clearance 123.61 ml/min (50-250); Globulin 2.1 g/dL (2.2-4.2); Glucose 99 mg/dL (70-99); Potassium 3.7 mmol/L (3.3-5.1); Protein, Total 5.2 g/dL (5.9-8.4); Sodium Level 139 mmol/L (133-145); Total Bilirubin 0.24 mg/dL (0.00-1.30)
[2024-10-24 07:31] VITALS: O2SAT 96
[2024-10-24 07:46] VITALS: BP 112/72; PULSE 78; RESP 18; TEMP 36.7; O2SAT 91
[2024-10-24] MEDS: oxyCODONE 5 MG Tablet 10 MG PO ×2 (07:46→14:15)
[2024-10-24] MEDS: Acetaminophen 325 MG Tablet 650 MG PO (07:46)
[2024-10-24] MEDS: Pantoprazole Sodium 40 MG in 0.9% Normal Saline (100mL MB+) 100 ML 330 MG IV (08:42)
[2024-10-24 09:14] LABS: Platelet Estimate MOD DEC (ADEQ)
[2024-10-24 09:15] LABS: Pathologist Review May foll
[2024-10-24] MEDS: Escitalopram Oxalate 20 MG Tablet PO (10:46)
[2024-10-24] MEDS: Hydrocortisone 25 MG Suppository RC (10:46)
--- NOTE | 2024-10-24 11:42 | DCINST_ITS ---
Discharge Instructions Follow Up Care Test Results: Test results from this visit will be discussed in further detail at your follow- up appointment, if applicable. Discharge Plan Admission Admit Date/Time: 10/22/24 01:08 Attending Provider: Lauro Mckenna Primary Care Provider: Claudette Alexandra Consulting Providers: Arleen Bangura; Denise Hall Discharge Orders/Prescriptions Prescriptions: No Action escitalopram oxalate [Lexapro] 20 mg tablet 20 mg PO QDAY oxycodone 10 mg tablet 10 mg PO Q6H PRN (Reason: pain) prochlorperazine maleate 10 mg tablet 10 mg PO Q6H PRN (Reason: nausea and vomiting) Qty: 30 2RF ondansetron 8 mg tablet,disintegrating 8 mg PO Q8H PRN (Reason: nausea and vomiting) Qty: 30 2RF lidocaine-prilocaine 2.5-2.5 % cream 1 applic topical ONCE PRN (Reason: port access) 30 Days Qty: 30 2RF phenazopyridine [Pyridium] 200 mg tablet 200 mg PO TID PRN (Reason: pain) Qty: 60 1RF Rx Instructions: take one tab PO tid hydrocortisone acetate 25 mg suppository 25 mg ME BID Qty: 12 0RF Rx Instructions: use twice daily as directed sulfamethoxazole-trimethoprim [Bactrim DS] 800-160 mg tablet 1 tab PO BID Qty: 10 0RF Patient Comments: LAST DOSE SHOULD BE THE NIGHT OF 10/21/24 (1 dose left) Rx Instructions: take one tab PO bid vitamin A 2,400 mcg Capsule 2,400 mcg PO DAILY cholecalciferol (vitamin D3) [Vitamin D3] 50 mcg (2,000 unit) Capsule 50 mcg PO DAILY levothyroxine 50 mcg tablet 50 mcg PO DAILY oxycodone 10 mg tablet 10 mg PO Q6H PRN (Reason: pain) 21 Days Qty: 60 0RF Rx Instructions: take one tab PO q6 hrs prn pain hydrocortisone acetate 30 mg suppository 25 mg ME BID Qty: 12 0RF Rx Instructions: take twice per day as directed Referrals / Follow Up: Claudette Alexandra PA [Primary Care Provider] -
--- NOTE | 2024-10-24 11:42 | PCM.DC.SUM ---
Providers Date of Admission: 10/22/24 Date of Discharge: 10/24/24 Primary Care Physician: RONI Robertson Reason For Visit: UTI, N/V/D, HYPOXIA, PANCYTOPENIA Diagnosis Discharge Diagnosis (1) UTI (urinary tract infection): Status: Acute Code(s): N39.0 - Urinary tract infection, site not specified (2) Pancytopenia: Status: Acute Code(s): D61.818 - Other pancytopenia (3) Generalized weakness: Status: Acute Code(s): R53.1 - Weakness Medications at Discharge Home Medications cholecalciferol (vitamin D3) 50 mcg (2,000 unit) capsule (Vitamin D3) 50 mcg PO DAILY bone 11/05/21 vitamin A 2,400 mcg capsule 2,400 mcg PO DAILY health 11/05/21 escitalopram oxalate 20 mg tablet (Lexapro) 20 mg PO QDAY anxiety 04/18/24 levothyroxine 50 mcg tablet 50 mcg PO DAILY thyroid 07/25/24 oxycodone 10 mg tablet 10 mg PO Q6H PRN pain 09/03/24 lidocaine-prilocaine 2.5 %-2.5 % topical cream 1 applic topical ONCE PRN port access 30 days #30 grams 09/11/24 ondansetron 8 mg disintegrating tablet 8 mg PO Q8H PRN nausea and vomiting #30 tabs 09/11/24 prochlorperazine maleate 10 mg tablet 10 mg PO Q6H PRN nausea and vomiting #30 tabs 09/11/24 phenazopyridine 200 mg tablet (Pyridium) 200 mg PO TID PRN pain #60 tabs 10/08/24 hydrocortisone acetate 25 mg rectal suppository 25 mg MN BID proctitis #12 ea 10/09/24 nitrofurantoin monohydrate/macrocrystals 100 mg capsule (Macrobid) 100 mg PO BID 2 days #4 caps 10/24/24 Hospital Course Operations None Procedures Blood transfusion and - (Chest x-ray x 2, CTA chest) Summary of Care Provided Minutes Spent on Discharge: 35 Hospital Course: Patient is a 49-year-old female who presented to [facility] [place] ED on 10/22/2024 with worsening weakness and concern for UTI. 1. Concern for acute UTI ? UA infectious appearing on admission with positive nitrates and 500 leukocyte esterase with 1+ bacteria. However, urine culture had no growth. Treated with IV ceftriaxone here and discharged on Macrobid to complete 5-day course of antibiotics total. 2. Acute on chronic anemia with pancytopenia ? Hemoglobin 8.7 on admit, slowly downtrended to 6.9 by 10/23. Given 1 unit of blood with repeat hemoglobin 7.9 on 10/24. Notably with downtrending WBC count and platelet counts as well. Presume worsened anemia is primarily due to recent chemotherapy. Stool occult test was positive but patient notably was recently diagnosed with radiation proctitis and is being treated as noted below so no need for further GI evaluation. Recommend repeat CBC in 5 to 7 days to ensure blood counts remain stable. 3. Adenocarcinoma of the cervix (stage IIa) with radiation proctitis ? Follows with Dr. Romero and Dr. Wu, see the recent office notes for further details. Patient did have radiation x 2 done while admitted here. Was recently diagnosed with radiation proctitis and has been on hydrocortisone suppositories twice daily. Will continue these on discharge. No further inpatient needs, continue close outpatient follow-up. 4. Hypoxia, resolved ? Unclear etiology. Chest x-ray and CTA chest both unremarkable. Respiratory panel negative and BNP unremarkable. Had improvement of oxygen level back to the mid 90s on room air by discharge. No further needs at this time. 5. Elevated liver enzymes ? Liver enzymes elevated during hospitalization. Liver ultrasound from 08/06/2024 showed normal homogenous liver with no intrahepatic ductal dilation and evidence of prior cholecystectomy. Suspect this may be due to cancer in the chemoradiation therapy she has recently received. Continue to monitor in the outpatient setting. Chronic medical conditions: ? Class I obesity: BMI 33 on admit. Complicates hospital course, care and prognosis. ? GERD: Continue home PPI. ? Anxiety/depression: Continue home escitalopram. ? Hypothyroidism: Continue home Synthroid. Total clinical time spent by myself addressing the patient's medical issues, reviewing all the data, and collaborating with patient's care team: 35 minutes. Physical Exam Const alert and oriented x3 General Appearance: cooperative HEENT normocephalic, head/scalp atraumatic and moist oral mucous membranes Eyes PERRL and EOMs intact bilaterally Neck no lymphadenopathy and supple Lymph Lymphatic: no lymphadenopathy noted Resp Resp Narrative: mildly diminished breath sounds bibasally, no wheezes or crackles. On room air. Cardio regular rate, regular rhythm, S1 normal heart sound, S2 normal heart sound and no murmurs GI normal to inspection, nondistended, normoactive bowel sounds, soft to palpation, non-tender and non-distended Extremity normal capillary refill, no clubbing, cyanosis or edema and no calf tenderness General Extremity: no tenderness to palpation of joints or extremities Neuro CN's II-XII intact bilaterally, no focal motor deficits and no sensory deficits noted Motor Exam: strength 5/5 throughout and general weakness Psych thought process normal and cooperative Appearance: appropriate Weight / BMI Weight Weight: 86.1 kg Body Mass Index (BMI) 33.6 ABG / Lab / Microbiology Data 10/24/24 05:42 10/24/24 05:42 Laboratory: Laboratory Results - last 24 hr 10/21/24 09:54: Crossmatch See Detail 10/24/24 05:42: WBC 1.3 L*, RBC 2.76 L, Hgb 7.9 L, Hct 24.2 L, MCV 87.7, MCH 28.6, MCHC 32.6, RDW Std Deviation 48.5 H, RDW Coeff of Willie 17.1 H, Plt Count 75 L, MPV 11.0, Immature Gran % (Auto) 0.800, Neut % (Auto) 64.8, Lymph % (Auto) 21.1, [place] % (Auto) 8.6, Eos % (Auto) 3.9, Baso % (Auto) 0.8, Absolute Neuts (auto) 0.8 L, Absolute Lymphs (auto) 0.27 L, Nucleated RBC % 0, Differential Comment COMMENT, Diff Path Review December foll, Platelet Estimate MOD DEC, Sodium 139, Potassium 3.7, Chloride 106, Carbon Dioxide 24.8, Anion Gap 8, BUN 6, Creatinine 0.56 L, Estim Creat Clear Calc 123.61, Est GFR (MDRD) Non-Af 110, BUN/Creatinine Ratio 11.5, Glucose 99, Calcium 8.2, Total Bilirubin 0.24, AST 23, ALT 30, Alkaline Phosphatase 164 H, Total Protein 5.2 L, Albumin 3.2 L, Globulin 2.1 L, Albumin/Globulin Ratio 1.5 Microbiology: Microbiology 10/23/24 15:00 Stool Stool Occult Blood (GUTIERREZ) - Final Occult Blood Positive 10/21/24 20:45 Urine, Clean Catch Urine Culture - Final Culture exhibits no growth. 10/21/24 20:35 Blood Culture (Wb) - Anticubital Left Blood Culture - Preliminary No growth in 48 hours. 10/23/24 15:00 Stool Enteric Bacteriology - Final 10/23/24 15:00 Stool Clostridioides difficile (PCR) - Final 10/22/24 02:11 Mucosa - Nasopharyngeal Respiratory Panel (PCR) - Final 10/22/24 02:11 Mucosa - Nasopharyngeal Coronavirus COVID-19 PCR - Final D/C Instructions DC O2, CPAP, BIPAP Needs Home O2 Discharge instructions: No Meaningful Use Info Meaningful Use Meaningful Use Diagnoses (Choose all that apply): None applicable Ischemic Stroke Statin Dosing Therapy Reference: STATIN DOSE THERAPY REFERENCE: * Patients > 75 years receive moderate or high dose statin therapy. * Patients 75 years or YOUNGER should receive HIGH intensity statin dose unless contraindicated. You will be required to document reason for non-treatment if statin daily dose does not meet guidelines. HIGH DOSE STATIN THERAPY DAILY Atorvastatin > than or = to 40 mg Rosuvastatin > than or = to 20 mg Amlodipine + Atorvastatin > than or = to 2.5/40 mg Ezetimibe + Simvastatin 10/80 mg Simvastatin 80mg Discharge Plan Admission Admit Date/Time: 10/22/24 01:08 Primary Reason for Your Visit: UTI w/ weakness Attending Provider: Lauro Mckenna Primary Care Provider: Claudette Alexandra Consulting Providers: Arleen Bangura; Denise Hall Instructions Additional Instructions / Restrictions: Please take 2 more days of Macrobid to complete 5-day course of antibiotics total for UTI. Please have a repeat CBC drawn in 5 to 7 days to ensure that your blood counts remain stable. Discharge Orders/Prescriptions Prescriptions: New nitrofurantoin monohyd/m-cryst [Macrobid] 100 mg capsule 100 mg PO BID 2 Days Qty: 4 0RF Rx Instructions: must administer with a meal/food Continued escitalopram oxalate [Lexapro] 20 mg tablet 20 mg PO QDAY oxycodone 10 mg tablet 10 mg PO Q6H PRN (Reason: pain) prochlorperazine maleate 10 mg tablet 10 mg PO Q6H PRN (Reason: nausea and vomiting) Qty: 30 2RF ondansetron 8 mg tablet,disintegrating 8 mg PO Q8H PRN (Reason: nausea and vomiting) Qty: 30 2RF lidocaine-prilocaine 2.5-2.5 % cream 1 applic topical ONCE PRN (Reason: port access) 30 Days Qty: 30 2RF phenazopyridine [Pyridium] 200 mg tablet 200 mg PO TID PRN (Reason: pain) Qty: 60 1RF Rx Instructions: take one tab PO tid hydrocortisone acetate 25 mg suppository 25 mg MN BID Qty: 12 0RF Rx Instructions: use twice daily as directed vitamin A 2,400 mcg Capsule 2,400 mcg PO DAILY cholecalciferol (vitamin D3) [Vitamin D3] 50 mcg (2,000 unit) Capsule 50 mcg PO DAILY levothyroxine 50 mcg tablet 50 mcg PO DAILY Discontinued sulfamethoxazole-trimethoprim [Bactrim DS] 800-160 mg tablet 1 tab PO BID Qty: 10 0RF Patient Comments: LAST DOSE SHOULD BE THE NIGHT OF 10/21/24 (1 dose left) Rx Instructions: take one tab PO bid oxycodone 10 mg tablet 10 mg PO Q6H PRN (Reason: pain) 21 Days Qty: 60 0RF Rx Instructions: take one tab PO q6 hrs prn pain hydrocortisone acetate 30 mg suppository 25 mg MN BID Qty: 12 0RF Rx Instructions: take twice per day as directed Other Ambulatory Orders: CBC W/Diff, Automated (Routine) Timeframe: 5 Days Facility: [facility] [place] - Location: Laboratory Ordered By: Dr. Lauro Mckenna Referrals / Follow Up: Claudette Alexandra PA [Primary Care Provider] - 11/04/24 9:30 am Disposition Disposition (needs filled in before D/C Order can be placed): Home, Self Care Charges/Coding Visit Charges Inpatient E&M: 63805 Disch Hosp >30min
[2024-10-24 13:45] VITALS: BP 107/67; PULSE 80; RESP 16; TEMP 36.7; O2SAT 92
--- NOTE | 2024-10-24 14:46 | CASEMGMT ---
Patient has order for discharge. RN CM in to discuss needs at discharge, at bedside. Patient denies needs or help at discharge. Patient had no further questions or concerns.
== END 2024-10-24 15:05 | disposition home or self-care (01) | DRG 689 ==
LOC: ED 10-22 00:08 → PCU 10-22 01:30
PROVIDERS: Student in an Organized Health Care Education/Training Program; Admitting Provider Family Medicine; Emergency Provider Emergency Medicine; PCP Physician Assistant; Visit Provider Hospitalist
DX: N39.0 Urinary tract infection, site not specified (principal); D61.810 Antineoplastic chemotherapy induced pancytopenia; C53.9 Malignant neoplasm of cervix uteri, unspecified; E03.9 Hypothyroidism, unspecified; E66.811 Obesity, class 1; D64.81 Anemia due to antineoplastic chemotherapy; F32.A Depression, unspecified; N18.1 Chronic kidney disease, stage 1; K21.9 Gastro-esophageal reflux disease without esophagitis; K62.7 Radiation proctitis; F41.9 Anxiety disorder, unspecified; R09.02 Hypoxemia; Z68.33 Body mass index [BMI] 33.0-33.9, adult; T45.1X5A Adverse effect of antineoplastic and immunosuppressive drugs, initial encounter; R74.01 Elevation of levels of liver transaminase levels; Z90.710 Acquired absence of both cervix and uterus; Z79.52 Long term (current) use of systemic steroids; Z79.890 Hormone replacement therapy; Z79.899 Other long term (current) drug therapy
CPT/HCPCS: 36415; 71046; 71275; 77386; 80053; 81001; 82274; 82728; 83540; 83550; 83605; 83735; 84100; 85025; 85610; 86850; 86900; 86901; 87040; 87086; 87493; 87506; 87633; 87635; 94668; 97802; 99285; P9016; Q9967; A4216; J2405

== ENCOUNTER 2024-10-25 19:32 | Inpatient (IN) | payer OTHER, SELFPAY ==
[2024-10-25] VITALS (7 sets, daily range): BP systolic 105–112; BP diastolic 68–83; PULSE 71–91; RESP 12–22; TEMP 36.2–36.6; O2SAT 86–94; BMI 34.0; BMI 32.8
--- NOTE | 2024-10-25 19:40 | EDS_ITS ---
HPI History of Present Illness Chief Complaint: Shortness of Breath Informant: patient Onset/Context/Timing Onset: Today Context: Gradual Onset Timing: Continuous Quality: Tired Location: Generalized Worsened by: Activity Relieved by: Nothing Narrative Narrative: Patient presents with low oxygen levels today. Patient states she has been feeling tired all day today. Patient states she was recently admitted to the hospital and transfused a unit of blood for anemia. Patient states she feels similar to the symptoms she had with her anemia. Patient denies any melena or hematochezia. Patient states she was also treated for urinary tract infection. Patient admits to some burning with urination but denies any urinary frequency or hematuria. Patient denies any fevers or chills. [facility] Medical History Dysuria Nausea Encounter for chemotherapy management Iron deficiency anemia due to chronic blood loss Encounter for education Anxiety History of steroid therapy Cervix cancer IBS (irritable bowel syndrome) Depression PONV (postoperative nausea and vomiting) Wears glasses Wears dentures Thyroid disease Arthritis Anemia Restless legs Syncope History of IBS Non-smoker History of edema History of rheumatic fever Home Medications ?Medication ?Instructions ?Recorded ?Last Taken ?Type cholecalciferol (vitamin D3) 50 50 mcg PO DAILY bone 0 11/05/21 10/21/24 08:03 History mcg (2,000 unit) capsule (Vitamin D3) vitamin A 2,400 mcg capsule 2,400 mcg PO DAILY health 11/05/21 10/21/24 08:06 History escitalopram oxalate 20 mg tablet 20 mg PO QDAY anxiet y 04/18/24 10/21/24 08:03 History (Lexapro) levothyroxine 50 mcg tablet 50 mcg PO DAILY thyroid 10/21/24 08:04 History oxycodone 10 mg tablet 10 mg PO Q6H PRN pain 10/21/24 17:05 History lidocaine-prilocaine 2.5 %-2.5 % 1 applic topical ONCE PRN port 09/11/24 Unknown Rx topical cream access 30 days #30 grams ondansetron 8 mg disintegrating 8 mg PO Q8H PRN nausea and 09/11/24 Unknown Rx tablet vomiting #30 tabs prochlorperazine maleate 10 mg 10 mg PO Q6H PRN nausea and 09/11/24 Unknown Rx tablet vomiting #30 tabs phenazopyridine 200 mg tablet 200 mg PO TID PRN pain # 60 tabs 10/08/24 10/21/24 17:05 Rx (Pyridium) hydrocortisone acetate 25 mg 25 mg NJ BID proctitis #1 2 ea 10/09/24 10/21/24 12:03 Rx rectal suppository nitrofurantoin 100 mg PO BID 2 days #4 caps 10/24/24 Unknown Rx monohydrate/macrocrystals 100 mg capsule (Macrobid) Allergy/AdvReac Type Severity Reaction Status Date / Time codeine Allergy Mild Nausea Verified 10/25/24 19:33 adhesive tape (surgical tape) Allergy Rash Verified 10/25/24 19:33 amoxicillin (From Augmentin) AdvReac Severe drug Verified 10/25/24 19:33 induced liver injury clavulanic acid (From AdvReac Severe drug Verified 10/25/24 19:33 Augmentin) induced liver injury Family History Father Cancer Throat Mother No problems noted. Surgical History History of colonoscopy History of esophagogastroduodenoscopy (EGD) History of hysterectomy S/P endometrial ablation History of mandibular surgery S/P knee surgery History of back surgery Hx laparoscopic cholecystectomy History of Social History household members: spouse current occupational status: unemployed Smoking Status: Never smoker alcohol intake: never substance use type: does not use seatbelt use: always do you feel safe at home: Yes additional social history: - Stephen GILLETTE ROS ED Constitutional Constitutional ED: Denies chills or fever(s) Eyes Eyes: Denies blurry vision or change in vision ENT ENT ED: Denies rhinorrhea or sore throat Cardiovascular Cardiovascular: Reports chest pain; Denies palpitations Respiratory/Chest Respiratory/Chest: Reports dyspnea; Denies cough Gastrointestinal Gastrointestinal: Denies nausea or vomiting Genitourinary Genitourinary ED: Reports dysuria; Denies hematuria Musculoskeletal Musculoskeletal: Reports back pain; Denies neck pain Integumentary Denies abscess or rash Neurologic Neurologic: Reports headache(s); Denies weakness Allergic/Immunologic Allergic/Immunologic ED: Denies mouth swelling or urticaria EXAM Physical Exam Const Vital Signs: 10/25/24 19:33 10/25/24 19:33 10/25/24 20:29 Temperature 97.2 F L Temperature Source Temporal Pulse Rate 91 Respiratory Rate 22 H Respiratory Effort Short of Breath Respiratory Depth Normal Respiratory Pattern Normal Blood Pressure 111/83 H Blood Pressure Mean 92 Pulse Ox 86 92 Oxygen Delivery Method Room Air Nasal Cannula Room Air Oxygen Flow Rate (L/min) 2 10/25/24 20:48 10/25/24 21:53 10/25/24 22:38 Temperature 97.2 F L Temperature Source Pulse Rate 75 71 74 Respiratory Rate 18 17 16 Respiratory Effort Respiratory Depth Respiratory Pattern Blood Pressure 105/69 112/71 111/72 Blood Pressure Mean 81 84 85 Pulse Ox 92 92 93 Oxygen Delivery Method Nasal Cannula Nasal Cannula Oxygen Flow Rate (L/min) 2 2 10/25/24 22:38 10/25/24 22:39 Temperature 97.3 F L Temperature Source Oral Pulse Rate 74 76 Respiratory Rate 13 12 Respiratory Effort Respiratory Depth Respiratory Pattern Blood Pressure 111/72 111/72 Blood Pressure Mean 85 85 Pulse Ox 93 93 Oxygen Delivery Method Nasal Cannula Nasal Cannula Oxygen Flow Rate (L/min) 2 2 Positive well nourished and well developed General Appearance ED: well developed and NAD HEENT Reports moist mucous membranes Eyes EOMs intact bilaterally Neck supple and no JVD Resp normal respiratory effort and clear to auscultation bilaterally Cardio regular rate and regular rhythm GI non-tender and non-distended Palpation: soft Neuro oriented x3, CN's II-XII intact bilaterally and no sensory deficits noted Sensorium / Orientation: alert Motor Exam: strength 5/5 throughout Psych mental status grossly normal MDM MDM MDM Narrative Medical decision making narrative: Differential diagnosis includes anemia, urinary tract infection, pneumonia, bronchitis, dehydration, and viral illness. CBC will be obtained to assess for leukocytosis and anemia. Comprehensive metabolic profile will be obtained to assess for hepatic function, renal function, and electrolyte abnormality. Urinalysis will be obtained to assess for urinary tract infection and hematuria. Chest x-ray will be obtained to assess for pneumonia and bronchitis. Lab Data Attestation: I reviewed the patient's lab results. Lab results narrative: CBC was reviewed. White blood cell count was low at 1.2. Hemoglobin was 8.1 and hematocrit was 24.8. These are stable compared to previous results. Platelets were 127. Comprehensive metabolic profile was reviewed. Potassium is low at 3.1. Alkaline phosphatase was mildly elevated at 175. The remainder is within normal limits. Urinalysis was reviewed. Leukocyte esterase was 500 with greater than 100 white blood cells and 1+ bacteria. Nitrites were positive. Urine bilirubin was 6 and urine urobilinogen was 8. Labs: Laboratory Results - last 24 hr 10/25/24 10/25/24 20:12 20:18 WBC 1.2 L* RBC 2.82 L Hgb 8.1 L Hct 24.8 L MCV 87.9 MCH 28.7 MCHC 32.7 RDW Std Deviation 50.2 H RDW Coeff of Willie 18.5 H Plt Count 127 L MPV 10.1 Immature Gran % (Auto) 1.700 H Neut % (Auto) 57.7 Lymph % (Auto) 24.6 [place] % (Auto) 11.0 H Eos % (Auto) 4.2 Baso % (Auto) 0.8 Absolute Neuts (auto) 0.7 L Absolute Lymphs (auto) 0.29 L Nucleated RBC % 0 Diff Path Review May foll Sodium 137 Potassium 3.1 L Chloride 101 Carbon Dioxide 26.1 Anion Gap 10 BUN 12 Creatinine 0.67 L Estim Creat Clear Calc 103.94 Est GFR (MDRD) Non-Af 106 BUN/Creatinine Ratio 18.3 Glucose 103 H Calcium 8.7 Total Bilirubin 0.31 AST 21 ALT 26 Alkaline Phosphatase 175 H Total Protein 6.2 Albumin 3.7 Globulin 2.5 Albumin/Globulin Ratio 1.5 Urine Color Tori Urine Clarity Sl. Cloudy Urine pH 6.0 Ur Specific Protection 1.015 Urine Protein 30 H Urine Glucose (UA) Normal Urine Ketones Negative Urine Occult Blood 25 H Urine Nitrite Positive H Urine Bilirubin 6 H Urine Urobilinogen 8 H Ur Leukocyte Esterase 500 H Urine RBC 5-10 SEEN Urine WBC >100 SEEN Ur Squamous Epith Cells 0-5 SEEN Urine Bacteria 1+ Urine Mucus 0 SEEN Radiography Chest X-Ray - ED: 2 View, Read by ED Physician, Read by Radiologist and No Acute Disease Diagnostic Testing: Clinical Impression(s) from Imaging Studies Chest X-Ray 10/25/24 20:35 IMPRESSION: NO ACUTE FINDINGS. Reading Location: [facility] PA and lateral chest x-ray was obtained. There are 2 views. On my independent interpretation, lung kenny are clear. There is normal cardiac silhouette. Bony thorax is normal. There is no acute process noted. Radiologist also interpreted the x-ray and agrees. Additional Tests and Interventions Additional Tests or Interventions: Urine culture was ordered. Treatment and Re-Evaluation :: Prior records were reviewed. Patient did have a recent CTA of her chest on 10/21/2024 which was negative for pulmonary embolism. Prior urine culture was reviewed. There is no gross on previous urine culture. Patient was given a dose of potassium. Patient was given a dose of Rocephin. Patient was advised of her findings. Patient still requires oxygen. Case was discussed with the hospitalist. She will admit the patient to her service. Patient understood and was agreeable with plan. All questions were answered. Discharge Plan Triage Chief Complaint: Shortness of Breath ED Provider: Jose Wolfe Dx/Rx/DC Orders Clinical Impression: UTI (urinary tract infection), Pancytopenia, Hypoxia Prescriptions: No Action escitalopram oxalate [Lexapro] 20 mg tablet 20 mg PO QDAY oxycodone 10 mg tablet 10 mg PO Q6H PRN (Reason: pain) prochlorperazine maleate 10 mg tablet 10 mg PO Q6H PRN (Reason: nausea and vomiting) Qty: 30 2RF ondansetron 8 mg tablet,disintegrating 8 mg PO Q8H PRN (Reason: nausea and vomiting) Qty: 30 2RF lidocaine-prilocaine 2.5-2.5 % cream 1 applic topical ONCE PRN (Reason: port access) 30 Days Qty: 30 2RF phenazopyridine [Pyridium] 200 mg tablet 200 mg PO TID PRN (Reason: pain) Qty: 60 1RF Rx Instructions: take one tab PO tid hydrocortisone acetate 25 mg suppository 25 mg [place] BID Qty: 12 0RF Rx Instructions: use twice daily as directed vitamin A 2,400 mcg Capsule 2,400 mcg PO DAILY cholecalciferol (vitamin D3) [Vitamin D3] 50 mcg (2,000 unit) Capsule 50 mcg PO DAILY levothyroxine 50 mcg tablet 50 mcg PO DAILY nitrofurantoin monohyd/m-cryst [Macrobid] 100 mg capsule 100 mg PO BID 2 Days Qty: 4 0RF Rx Instructions: must administer with a meal/food Primary Care Provider: Claudette Alexandra Referrals: Claudette Alexandra PA [Primary Care Provider] - Print Language: Vietnamese Disposition Disposition: Acute Care Hospital [facility]
[2024-10-25 20:18] LABS: Mucous, Urine 0 SEEN /hpf (<or=2+)
[2024-10-25 20:20] LABS: Color, Urine Amber (Yellow); Glucose, Dipstick Normal (Normal); Ketone-Dipstick Negative (Negative); Leukocyte Esterase-Dipstick 500 /ul (Negative); Nitrite-Dipstick Positive (Negative); Occult Blood-Urine 25 /ul (Negative); Protein-Dipstick 30 mg/dl (Negative); Specific Gravity, Urine 1.015 (1.002-1.030); Urine Clarity Sl. Cloudy (Clear); Urine Urobilinogen 8 mg/dl (Normal)
[2024-10-25 20:22] LABS: Urine Bilirubin Dipstick 6 mg/dL (Negative)
[2024-10-25 20:34] LABS: Bacteria 1+ /hpf (None Seen); Red Blood Cells-Urine 5-10 SEEN /hpf (0-5); Squamous Epithelial Cells - UA 0-5 SEEN /hpf (5-10); White Blood Cells >100 SEEN /hpf (0-5)
--- NOTE | 2024-10-25 20:35 | RAD_ITS ---
PROCEDURE: CHEST PA AND LATERAL 10/25/2024 REASON FOR EXAM: DYSPNEA TECHNIQUE: Frontal and lateral views of the chest. COMPARISON: Chest radiograph dated 10/22/2024 FINDINGS: Left-sided Port-A-Cath with its tip in the SVC. The heart size is normal. The mediastinal contour is unremarkable. The lungs are clear. Degenerative changes are identified within the thoracic spine. RAD/Chest PA and Lateral IMPRESSION: NO ACUTE FINDINGS. Reading Location: [facility]
[2024-10-25 20:40] LABS: Absolute Lymphocyte Count 0.29 X10^3/uL (0.83-4.51); Absolute Neutrophil Count 0.7 X10^3/uL (2.0-7.7); Basophil# 0.01 X10^3/uL; Basophil% 0.8 % (0-1); Eosinophil# 0.05 X10^3/uL; Eosinophils% 4.2 % (0-5); Hematocrit 24.8 % (37-47); Hemoglobin 8.1 g/dL (12.0-15.0); Lymphocyte # 0.29 X10^3/ul (0.83-4.51); Lymphocyte % 24.6 % (19-41); Mean Corp Hgb Conc 32.7 g/dL (32-36); Mean Corpuscular Hgb 28.7 pg (27.0-32.0); Mean Corpuscular Volume 87.9 fL (81-99); Mean Platelet Vol. 10.1 fl (6.2-12.0); Monocyte# 0.13 X10^3/uL; NRBC Flagged by Analyzer 0 % (0-5); Neutrophil # 0.68 X10^3/uL (2.7-7.7); Neutrophil % 57.7 % (47-70); POSITIVE COUNT YES; POSITIVE DIFFERENTIAL YES; Platelet Count 127 K/mm3 (150-450); RBC Distribution Width CV 18.5 % (11.6-14.6); RBC Distribution Width SD 50.2 fl (35.1-43.9); Red Blood Count 2.82 M/mm3 (4.2-5.4)
[2024-10-25 20:55] LABS: White Blood Count 1.2 K/mm3 (4.4-11.0)
[2024-10-25 20:56] LABS: Differential Indicated SCAN CRITERIA MET
[2024-10-25 21:05] LABS: ALB/GLOB Ratio 1.5 RATIO (0.9-2.4); AST(SGOT) 21 U/L (<=31); Alanine Aminotransfer ALT/SGPT 26 U/L (<=34); Albumin, Serum 3.7 g/dL (3.5-5.0); Alkaline Phosphatase 175 U/L (35-104); Anion Gap 10 (5-15); BUN 12 mg/dL (4-19); BUN/Creat Ratio 18.3 RATIO (10-20); Calcium,Total 8.7 mg/dL (7.6-11.0); Carbon Dioxide 26.1 mmol/L (21.0-32.0); Chloride 101 mmol/L (98-108); Creatinine, Serum 0.67 mg/dL (0.70-1.20); EST Glomerular Filtration Rate 106 (>60); Estimated Creatinine Clearance 103.94 ml/min (50-250); Globulin 2.5 g/dL (2.2-4.2); Glucose 103 mg/dL (70-99); Potassium 3.1 mmol/L (3.3-5.1); Protein, Total 6.2 g/dL (5.9-8.4); Sodium Level 137 mmol/L (133-145); Total Bilirubin 0.31 mg/dL (0.00-1.30)
[2024-10-25 22:18] LABS: Pathologist Review May foll
[2024-10-25] MEDS: Potassium Chloride Oral Tablet 20 MEQ 40 MEQ PO (22:35)
[2024-10-25] MEDS: Ceftriaxone 1 GM/50 ML BAG IV (22:35)
--- NOTE | 2024-10-25 22:45 | HP.PCM.HOS_ITS ---
HPI - General General Date of Admission: 10/25/24 Date of Service: 10/25/24 Chief Complaint: Dyspnea, fatigue. 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, gastric type) s/p BEN/BSO 07/16/2024 with associated Chronic pancytopenia on continued adjuvant radiation therapy with chemosensitization with low-dose weekly cisplatin ending this month secondary to increasing pelvic pain with follow-up weekly secondary to continued close monitoring from acute treatment related toxicity, recent hold on oral iron secondary to constipation on oral narcotics during radiation phase with planned resumption once radiation complete, recently discharged following evaluation and treatment/evaluation of initial concerns for complicated urinary tract infection with nausea, emesis, diarrhea, transient hypoxia and acute on chronic pancytopenia however urine culture demonstrated no growth however patient had positive nitrite/leukocyte esterase and 1+ bacteria treated in-house with IV Rocephin discharged on Macrobid to complete 5-day course, acute on chronic anemia with pancytopenia administered 1 unit PRBC on 10/24 and ongoing radiation x 2 while admitted with recent diagnosis radiation proctitis utilizing hydrocortisone s suppositories twice daily continued on discharge with transient hypoxia of unclear etiology at that time with chest x-ray, CTA chest unremarkable, negative respiratory panel, BNP unremarkable with improvement to mid 90s on room air by discharge, elevated liver enzymes with normal homogenous liver with no concerning findings on ultrasound suspected secondary to cancer with chemoradiation therapy received now re-presenting to the [facility] ED on 10/25/24 with increasing shortness of breath and debility referred her to her radiation oncologist. She notes she has had no fevers or chills and has no nausea or emesis, tolerating diet. She does states still some mildly loose stools but is markedly improved and some burning sensation from the proctitis. Workup in the ED included T97.2, heart rate 91, BP 111/83, respiratory rate 22, initially noted to be 86% on room air with improvement to 92% on 2 L nasal cannula, CBC with WBC 1.2, hemoglobin 8.1, MCV 87.9, platelet 127 with increased immature granulocytes with ANC 0.7 and lymphopenia, CMP with potassium 3.1, BUN//creatinine 12/0.67, GFR 106, glucose 103, alk phos 175 otherwise hepatic profile unremarkable, urinalysis noted to be cloudy, specific gravity 1.015, protein 30, occult blood 25, positive nitrite, leukocyte esterase 500, urine WBCs greater than 100 with 1+ urine bacteria, urine culture pending per ED. In the ED patient ministered potassium 40 mill equivalent p.o. x 1 and Rocephin 1 g IV x 1. PFSH Medical History Dysuria Nausea Encounter for chemotherapy management Iron deficiency anemia due to chronic blood loss Encounter for education Anxiety History of steroid therapy Cervix cancer IBS (irritable bowel syndrome) Depression PONV (postoperative nausea and vomiting) Wears glasses Wears dentures Thyroid disease Arthritis Anemia Restless legs Syncope History of IBS Non-smoker History of edema History of rheumatic fever Home Medications ?Medication ?Instructions ?Recorded ?Last Taken ?Type cholecalciferol (vitamin D3) 50 50 mcg PO DAILY bone 0 11/05/21 10/21/24 08:03 History mcg (2,000 unit) capsule (Vitamin D3) vitamin A 2,400 mcg capsule 2,400 mcg PO DAILY health 11/05/21 10/21/24 08:06 History escitalopram oxalate 20 mg tablet 20 mg PO QDAY anxiet y 04/18/24 10/21/24 08:03 History (Lexapro) levothyroxine 50 mcg tablet 50 mcg PO DAILY thyroid 10/21/24 08:04 History oxycodone 10 mg tablet 10 mg PO Q6H PRN pain 10/21/24 17:05 History lidocaine-prilocaine 2.5 %-2.5 % 1 applic topical ONCE PRN port 09/11/24 Unknown Rx topical cream access 30 days #30 grams ondansetron 8 mg disintegrating 8 mg PO Q8H PRN nausea and 09/11/24 Unknown Rx tablet vomiting #30 tabs prochlorperazine maleate 10 mg 10 mg PO Q6H PRN nausea and 09/11/24 Unknown Rx tablet vomiting #30 tabs phenazopyridine 200 mg tablet 200 mg PO TID PRN pain # 60 tabs 10/08/24 10/21/24 17:05 Rx (Pyridium) hydrocortisone acetate 25 mg 25 mg MD BID proctitis #1 2 ea 10/09/24 10/21/24 12:03 Rx rectal suppository nitrofurantoin 100 mg PO BID 2 days #4 caps 10/24/24 Unknown Rx monohydrate/macrocrystals 100 mg capsule (Macrobid) Allergy/AdvReac Type Severity Reaction Status Date / Time codeine Allergy Mild Nausea Verified 10/25/24 19:33 adhesive tape (surgical tape) Allergy Rash Verified 10/25/24 19:33 amoxicillin (From Augmentin) AdvReac Severe drug Verified 10/25/24 19:33 induced liver injury clavulanic acid (From AdvReac Severe drug Verified 10/25/24 19:33 Augmentin) induced liver injury Family History Father Cancer Throat Mother No problems noted. Surgical History History of colonoscopy History of esophagogastroduodenoscopy (EGD) History of hysterectomy S/P endometrial ablation History of mandibular surgery S/P knee surgery History of back surgery Hx laparoscopic cholecystectomy History of Social History household members: spouse current occupational status: unemployed Smoking Status: Never smoker alcohol intake: never substance use type: does not use seatbelt use: always do you feel safe at home: Yes additional social history: - Stephen GILLETTE Narrative Admission Review of Systems: CONSTITUTIONAL: No weight loss, fever, chills, + weakness or fatigue. HEENT: Eyes: No visual loss, blurred vision, double vision or yellow sclerae. Ears, Nose, Throat: No hearing loss, sneezing, congestion, runny nose or sore throat. SKIN: No rash or itching, lesions, wounds. CARDIOVASCULAR: No chest pain, chest pressure or chest discomfort, palpitations, edema, orthopnea, syncopal events. RESPIRATORY: + Dyspnea. No marked productive sputum, wheezing or hemoptysis. GASTROINTESTINAL: + Improved loose stools from prior. No anorexia, nausea, vomiting, abdominal pain, melena, BRBPR. GENITOURINARY: + Dysuria, frequency. No urgency or retention. NEUROLOGICAL: No headache, dizziness, syncope, paralysis, ataxia, numbness or tingling in the extremities, focal weakness, change in bowel or bladder control, seizure. MUSCULOSKELETAL:+ muscle, back pain, joint pain or stiffness. HEMATOLOGIC: + Chronic anemia, easy bleeding/bruising. LYMPHATICS: No enlarged nodes. No history of splenectomy. PSYCHIATRIC: + History of anxiety and depression. ENDOCRINOLOGIC: No reports of sweating, cold or heat intolerance. No polyuria or polydipsia. ALLERGIES: No history of asthma, hives, eczema or rhinitis. Vital Signs Vital Signs Vital Signs: 10/25/24 19:33 10/25/24 19:33 10/25/24 20:29 Temperature 97.2 F L Temperature Source Temporal Pulse Rate 91 Respiratory Rate 22 H Respiratory Effort Short of Breath Respiratory Depth Normal Respiratory Pattern Normal Blood Pressure 111/83 H Blood Pressure Mean 92 Pulse Ox 86 92 Oxygen Delivery Method Room Air Nasal Cannula Room Air Oxygen Flow Rate (L/min) 2 10/25/24 20:48 10/25/24 21:53 10/25/24 22:38 Temperature 97.2 F L Temperature Source Pulse Rate 75 71 74 Respiratory Rate 18 17 16 Respiratory Effort Respiratory Depth Respiratory Pattern Blood Pressure 105/69 112/71 111/72 Blood Pressure Mean 81 84 85 Pulse Ox 92 92 93 Oxygen Delivery Method Nasal Cannula Nasal Cannula Oxygen Flow Rate (L/min) 2 2 10/25/24 22:38 10/25/24 22:39 Temperature 97.3 F L Temperature Source Oral Pulse Rate 74 76 Respiratory Rate 13 12 Respiratory Effort Respiratory Depth Respiratory Pattern Blood Pressure 111/72 111/72 Blood Pressure Mean 85 85 Pulse Ox 93 93 Oxygen Delivery Method Nasal Cannula Nasal Cannula Oxygen Flow Rate (L/min) 2 2 Weight Weight: 192 lb 0.362 oz Body Mass Index (BMI) 34.0 Physical Exam Narrative Physical Examination: General: Awake, alert, oriented x 3 and cooperative, seated upright in ED, fatigued but improved appearance since previous ED admission evaluation. Skin: Normal color, normal turgor, no icterus, no cyanosis except occasional stage ecchymoses. HEENT: AT/NC, EOMI, PERRLA, mildly dry MMM, no carotid bruits or JVD noted. Lungs: Mildly diminished, greater bases, appropriate effort, no evidence of any distress, no rales, ronchi or wheezing. Heart: Regular rate and rhythm; no gallop, rub audible. Abdomen: Soft, NTTP, ND, no marked suprapubic discomfort with palpation, normal BS, no appreciated HSM. Extremities: No cyanosis, clubbing, or edema. Neurological: Patient awake, alert, oriented as noted, cognitive function intact; pupils equally reactive to light and accommodation, cranial nerves gross normal, moving all 4 extremities, no focal deficits, strength moderately globally decreased. Psychiatric: Affect appears mildly flat, fatigued, no acute evidence of depressive or anxiety feelings but does have underlying history. Results Lab / Micro Data 10/25/24 20:18 10/25/24 20:18 Labs: Laboratory Results - last 24 hr 10/25/24 20:12: Urine Color Tori, Urine Clarity Sl. Cloudy, Urine pH 6.0, Ur Specific [place] 1.015, Urine Protein 30 H, Urine Glucose (UA) Normal, Urine Ketones Negative, Urine Occult Blood 25 H, Urine Nitrite Positive H, Urine Bilirubin 6 H, Urine Urobilinogen 8 H, Ur Leukocyte Esterase 500 H, Urine RBC 5- 10 SEEN, Urine WBC >100 SEEN, Ur Squamous Epith Cells 0-5 SEEN, Urine Bacteria 1+, Urine Mucus 0 SEEN 10/25/24 20:18: WBC 1.2 L*, RBC 2.82 L, Hgb 8.1 L, Hct 24.8 L, MCV 87.9, MCH 28.7, MCHC 32.7, RDW Std Deviation 50.2 H, RDW Coeff of Willie 18.5 H, Plt Count 127 L, MPV 10.1, Immature Gran % (Auto) 1.700 H, Neut % (Auto) 57.7, Lymph % (Auto) 24.6, [place] % (Auto) 11.0 H, Eos % (Auto) 4.2, Baso % (Auto) 0.8, Absolute Neuts (auto) 0.7 L, Absolute Lymphs (auto) 0.29 L, Nucleated RBC % 0, Diff Path Review May , Sodium 137, Potassium 3.1 L, Chloride 101, Carbon Dioxide 26.1, Anion Gap 10, BUN 12, Creatinine 0.67 L, Estim Creat Clear Calc 103.94, Est GFR (MDRD) Non-Af 106, BUN/Creatinine Ratio 18.3, Glucose 103 H, Calcium 8.7, Total Bilirubin 0.31, AST 21, ALT 26, Alkaline Phosphatase 175 H, Total Protein 6.2, Albumin 3.7, Globulin 2.5, Albumin/Globulin Ratio 1.5 Imaging Radiology Impression Chest X-Ray 10/25/24 20:35 IMPRESSION: NO ACUTE FINDINGS. [facility] Assessment & Plan Assessment/Plan (1) UTI (urinary tract infection): (2) Hypoxia: PLAN: Plan The patient is a 49 y/o F w/ PMHx: CKD stage I per GFR trending, Chronic anemia/Fe deficiency anemia, Hypothyroidism, Chronic pain syndrome, Obesity, RLS, Anxiety and Depression, Carcinoma of the cervix at least stage IIA (moderately differentiated adenocarcinoma favoring cervical carcinoma HPV independent, gastric type) s/p BEN/BSO 07/16/2024 with associated Chronic pancytopenia on continued adjuvant radiation therapy with chemosensitization with low-dose weekly cisplatin, recently discharged w/ transient hypoxia of unclear etiology with negative imaging evaluation/respiratory assessment that resolved, initial concern UTI with unremarkable UCx with neutropenia, acute on chronic anemia s/p 1 u PRBC who now re-presenting to the [facility] ED on 10/25/24 with increasing shortness of breath and debility referred her to her radiation oncologist. #1. Acute recurrent hypoxia of unclear etiology, potentially secondary to #2: Admission chest x-ray and CTPA unremarkable, rapid COVID PCR as well as full respiratory viral pane recently obtained during recent admission and negative at that time, again requiring supplemental oxygen in the ED, recently present workup with again chest x-ray with no acute cardiopulmonary findings, urinalysis concerning as noted, urine culture pending, initiating treatment as noted #2, will encourage aggressive sense of spirometry, will maintain on trending pulse oximeter overnight as patient potentially could have underlying unknown sleep apnea as a component. #2. Recurrent abnormal urinalysis, concerning for acute complicated urinary tract infection: Urinalysis again concerning with positive gravity 1.015, occult blood 25, positive nitrite, leukocyte esterase 500 with urine WBCs greater than 100 with 1+ urine bacteria, will request repeat urine culture, at this time we will reinitiate IV Rocephin as had recently been discharged on Macrobid however as noted below the urine culture was not marked at that time. #3. Hypokalemia: Admission K+ 3.1, magnesium level requested as noted, supplementation given, repeat level in AM. #4. Recent Acute Nausea, Diarrhea, with initial concern for possible acute complicated urinary tract infection possibly failing recent antibiotic therapy however urine culture demonstrated no significant growth, suspected primarily secondary to radiation proctitis, N/V resolved, diarrhea improved w/ suppositories: Recent presentation with negative enteric pathogen's and negative C. difficile as well as negative full respiratory viral panel and negative COVID PCR with eventual urine culture unremarkable. Given patient treatment history likely secondary to ongoing treatments in addition to her underlying cancer. Will continue to monitor for I's and O's, as needed antiemetics if necessary, monitor stool output, continue supplemental Preparation H suppositories twice daily. As noted above urinalysis again concerning, more so than even previously, urine culture pending, holding Macrobid and transition back to IV Rocephin as noted above. #5. Carcinoma of the cervix at least stage IIA (moderately differentiated adenocarcinoma favoring cervical carcinoma HPV independent, gastric type) with chronic pancytopenia, neutropenia: Patient s/p BEN/BSO 07/16/2024 with associated Chronic pancytopenia on continued adjuvant radiation therapy with chemosensitization with low-dose weekly cisplatin ending this month secondary to increasing pelvic pain with follow-up weekly secondary to continued close monitoring from acute treatment related toxicity, will continue neutropenic precautions, magnesium phosphorus levels will again be requested to be cautious, trend CBC, continue to follow with radiation oncology as previously arranged as well as patient's oncologist. Presentation CBC again with recurrent pancytopenia, neutropenia, WBC 1.2, hemoglobin 8.1, platelet 127 with ANC 0.7. #6. Chronic normocytic anemia/iron deficiency anemia: Admission CBC with hemoglobin 8.1, MCV 87.9, recent admission previous to this with hemoglobin dropped down 10/23/2024 to hemoglobin 6.9 requiring 1 unit PRBC, discharged on 10/24/2024 with hemoglobin 7.9, remained stable, baseline previously had primarily been 10-12 range, known underlying history of iron deficiency anemia, continue to trend CBC. #7. Chronic Kidney Disease Stage I per GFR trending: Admission BUN/Cr 12/0.67, GFR 106, previous GFR is primarily consistent with stage I, baseline renal function primarily 0.6-0.7, repeat BMP in AM. #8. Obesity: Weight loss and lifestyle changes encouraged. #9. GERD: Continue home PPI. #10. Anxiety and depression: We will continue patient on escitalopram regimen. #11. DVT prophylaxis: SCDs, defer chemoprophylaxis given pancytopenia and recent acute on chronic anemia requiring 1 unit PRBC administration during prior admission. #12. CODE status: Patient CHULA is her who is present and living will is currently in place. Full Code status. Charges/Coding Visit Charges Inpatient E&M: 75641 Init Hosp L3
[2024-10-25] MEDS: 0.9% Normal Saline (1000mL) 1,000 ML 100 ML IV (23:52)
[2024-10-25] MEDS: oxyCODONE 5 MG Tablet 10 MG PO (23:55)
[2024-10-25] MEDS: Acetaminophen 325 MG Tablet 650 MG PO (23:55)
[2024-10-26] VITALS (10 sets, daily range): BP systolic 86–106; BP diastolic 52–67; PULSE 71–76; RESP 16–18; TEMP 36.1–36.7; O2SAT 91–98; BMI 32.8
[2024-10-26 00:09] LABS: Magnesium 1.9 mg/dL (1.5-2.2); Phosphorus 3.2 mg/dL (2.7-4.5)
[2024-10-26] MEDS: Levothyroxine 50 MCG Tablet PO (05:36)
[2024-10-26 06:00] LABS: Absolute Neutrophil Count 0.4 X10^3/uL (2.0-7.7); Basophil# 0.01 X10^3/uL; Eosinophil# 0.05 X10^3/uL; Hematocrit 22.2 % (37-47); Hemoglobin 7.2 g/dL (12.0-15.0); Lymphocyte # 0.34 X10^3/ul (0.83-4.51); Mean Corp Hgb Conc 32.4 g/dL (32-36); Mean Corpuscular Hgb 29.1 pg (27.0-32.0); Mean Corpuscular Volume 89.9 fL (81-99); Mean Platelet Vol. 10.4 fl (6.2-12.0); Monocyte# 0.15 X10^3/uL; Neutrophil # 0.38 X10^3/uL (2.7-7.7); POSITIVE COUNT YES; POSITIVE DIFFERENTIAL YES; POSITIVE MORPHOLOGY YES; Platelet Count 113 K/mm3 (150-450); RBC Distribution Width CV 18.9 % (11.6-14.6); RBC Distribution Width SD 52.1 fl (35.1-43.9); Red Blood Count 2.47 M/mm3 (4.2-5.4)
[2024-10-26 06:18] LABS: Differential Indicated SCAN CRITERIA MET
[2024-10-26 06:49] LABS: ALB/GLOB Ratio 1.6 RATIO (0.9-2.4); AST(SGOT) 28 U/L (<=31); Alanine Aminotransfer ALT/SGPT 24 U/L (<=34); Alkaline Phosphatase 149 U/L (35-104); Anion Gap 7 (5-15); BUN 9 mg/dL (4-19); BUN/Creat Ratio 17.8 RATIO (10-20); Calcium,Total 8.1 mg/dL (7.6-11.0); Carbon Dioxide 25.5 mmol/L (21.0-32.0); Chloride 108 mmol/L (98-108); Creatinine, Serum 0.53 mg/dL (0.70-1.20); EST Glomerular Filtration Rate 112 (>60); Estimated Creatinine Clearance 129.02 ml/min (50-250); Globulin 1.9 g/dL (2.2-4.2); Glucose 83 mg/dL (70-99); Potassium 4.1 mmol/L (3.3-5.1); Sodium Level 141 mmol/L (133-145); Total Bilirubin 0.32 mg/dL (0.00-1.30)
[2024-10-26] MEDS: Hydrocortisone 25 MG Suppository RC ×2 (08:03→22:30)
[2024-10-26] MEDS: Menthol/Lanolin/Calamine/Znox 113 GM Tube 1 APPLIC TOPICAL ×4 (08:03→22:31)
[2024-10-26] MEDS: Escitalopram Oxalate 20 MG Tablet PO (08:03)
[2024-10-26] MEDS: oxyCODONE 5 MG Tablet 10 MG PO ×2 (08:04→15:54)
[2024-10-26] MEDS: Acetaminophen 325 MG Tablet 650 MG PO ×2 (08:04→15:54)
[2024-10-26 09:20] LABS: Polychromasia 2+
[2024-10-26 09:41] LABS: Neutrophil-Segmented 43 % (47-70); Total Cells Counted 100 (MANUAL DIFF)
[2024-10-26 09:42] LABS: Atypical Lymphocyte 1+ %; Basophil 1 % (0-1); Eosinophil 11 % (0-5); Lymphocyte 40 % (19-41); Metamyelocyte 1 % (0-1); Monocyte 4 % (0-10); Platelet Morphology LARGE; Reactive Lymphocyte 1+
[2024-10-26 09:45] LABS: Anisocytosis 1+; Platelet Estimate ADEQUATE (ADEQ)
[2024-10-26 09:46] LABS: Scan Smear per Review Criteria MANUAL DIFF
[2024-10-26 09:48] LABS: Pathologist Review May foll
--- NOTE | 2024-10-26 09:49 | PN.HOSP_ITS ---
Reason for Visit Reason for Visit: Diagnoses Urinary tract infection, site not specified (10/25/24) Hypoxemia (10/25/24) Subjective Subjective Patient was seen and examined today, her hemoglobin was 7.2, absolute neutrophil count was 400. Patient complains of feeling fatigued, she is currently on 2 L oxygen via nasal cannula. I have elected to give the patient 1 unit of packed red blood cells-patient is wanting a blood transfusion. Objective Data Objective Data Vital Signs: Vital Signs Temp Pulse Resp BP Pulse Ox O2 Del Method O2 Flow Rate 97.7 F L 76 16 97/64 91 Nasal Cannula 2 10/26/24 07:48 10/26/24 07:48 10/26/24 07:48 10/26/24 07:48 10/26/24 07:48 10/26/24 09:36 10/26/24 09:36 Oxygen Flow Rate (L/min) 2 Oxygen Delivery Method Nasal Cannula Weight: 84.1 kg Body Mass Index (BMI) 32.8 Intake & Output: Intake and Output for Last 24 Hours 10/24/24 10/25/24 10/26/24 23:59 23:59 23:59 Intake Total 50 / 50 300 / 300 Balance 50 / 50 300 / 300 Lab / Micro Data 10/26/24 05:37 10/26/24 05:37 Labs: Laboratory Results - last 24 hr 10/25/24 20:12: Urine Color Tori, Urine Clarity Sl. Cloudy, Urine pH 6.0, Ur Specific [place] 1.015, Urine Protein 30 H, Urine Glucose (UA) Normal, Urine Ketones Negative, Urine Occult Blood 25 H, Urine Nitrite Positive H, Urine Bilirubin 6 H, Urine Urobilinogen 8 H, Ur Leukocyte Esterase 500 H, Urine RBC 5- 10 SEEN, Urine WBC >100 SEEN, Ur Squamous Epith Cells 0-5 SEEN, Urine Bacteria 1+, Urine Mucus 0 SEEN 10/25/24 20:18: WBC 1.2 L*, RBC 2.82 L, Hgb 8.1 L, Hct 24.8 L, MCV 87.9, MCH 28.7, MCHC 32.7, RDW Std Deviation 50.2 H, RDW Coeff of Willie 18.5 H, Plt Count 127 L, MPV 10.1, Immature Gran % (Auto) 1.700 H, Neut % (Auto) 57.7, Lymph % (Auto) 24.6, [place] % (Auto) 11.0 H, Eos % (Auto) 4.2, Baso % (Auto) 0.8, Absolute Neuts (auto) 0.7 L, Absolute Lymphs (auto) 0.29 L, Nucleated RBC % 0, Diff Path Review December foll, Sodium 137, Potassium 3.1 L, Chloride 101, Carbon Dioxide 26.1, Anion Gap 10, BUN 12, Creatinine 0.67 L, Estim Creat Clear Calc 103.94, Est GFR (MDRD) Non-Af 106, BUN/Creatinine Ratio 18.3, Glucose 103 H, Calcium 8.7, Phosphorus 3.2, Magnesium 1.9, Total Bilirubin 0.31, AST 21, ALT 26, Alkaline Phosphatase 175 H, Total Protein 6.2, Albumin 3.7, Globulin 2.5, Albumin/Globulin Ratio 1.5 10/26/24 05:37: WBC 1.0 L*, RBC 2.47 L, Hgb 7.2 L, Hct 22.2 L, MCV 89.9, MCH 29.1, MCHC 32.4, RDW Std Deviation 52.1 H, RDW Coeff of Willie 18.9 H, Plt Count 113 L, MPV 10.4, Immature Gran % (Auto) SURGICAL NURSE PRACTITIONER, Neut % (Auto) SURGICAL NURSE PRACTITIONER, Lymph % (Auto) SURGICAL NURSE PRACTITIONER, Hood % (Auto) SURGICAL NURSE PRACTITIONER, Eos % (Auto) SURGICAL NURSE PRACTITIONER, Baso % (Auto) SURGICAL NURSE PRACTITIONER, Absolute Neuts (auto) 0.4 L , Absolute Lymphs (auto) 0.40 L, Total Counted 100, Neutrophils % (Manual) 43 L, Lymphocytes % (Manual) 40, Monocytes % (Manual) 4, Eosinophils % (Manual) 11 H, Basophils % (Manual) 1, Metamyelocytes % 1, Nucleated RBC % 3.0, Diff Path Review December foll, Atypical Lymphocytes 1+, Reactive Lymphocytes 1+, Platelet Estimate ADEQUATE, Plt Morphology Comment LARGE, Polychromasia 2+, Anisocytosis 1+, Sodium 141, Potassium 4.1, Chloride 108, Carbon Dioxide 25.5, Anion Gap 7, BUN 9, Creatinine 0.53 L, Estim Creat Clear Calc 129.02, Est GFR (MDRD) Non-Af 112, BUN/Creatinine Ratio 17.8, Glucose 83, Calcium 8.1, Total Bilirubin 0.32, AST 28, ALT 24, Alkaline Phosphatase 149 H, Total Protein 5.0 L, Albumin 3.0 L, Globulin 1.9 L, Albumin/Globulin Ratio 1.6 Radiography Diagnostic Testing: Radiology Impression Chest X-Ray 10/25/24 20:35 IMPRESSION: NO ACUTE FINDINGS. [facility] Physical Exam Const alert, oriented x3 and no apparent distress General Appearance: cooperative, well kempt and well developed Orientation / Consciousness: awake, oriented to person, oriented to place and oriented to time HEENT normocephalic, head/scalp atraumatic and moist oral mucous membranes Eyes PERRL, EOMs intact bilaterally and conjunctivae normal Neck supple, no JVD, thyroid normal and no carotid bruits General: trachea midline Resp normal respiratory effort, no retractions, no use of accessory muscles and clear to auscultation bilaterally Auscultation: Negative for rales, rhonchi or wheezes Cardio regular rate, regular rhythm, S1 normal heart sound, S2 normal heart sound, no murmurs, no rub and no gallops GI normal to inspection, nondistended, normoactive bowel sounds, soft to palpation, non-tender and non-distended Extremity no clubbing, cyanosis or edema Skin no rashes or lesions noted General Skin Exam: no breakdown Neuro oriented x3, CN's II-XII intact bilaterally, no focal motor deficits and no sensory deficits noted Sensorium / Orientation: awake and alert Speech: speech normal Psych affect normal Assessment & Plan Assessment/Plan (1) Hypoxia: PLAN: Plan 1. Hypoxia-etiology unclear at this point, patient's pulse ox is being monitored, we will wean oxygen if possible #2 pancytopenia secondary to chemotherapy-again I will transfuse 1 unit of packed red blood cells today, repeat CBC tomorrow #3 acute cystitis-patient remains on IV Rocephin, cultures pending #4 cervical cancer-complicates care, management, recovery, and prognosis Total clinical time spent by myself addressing the patient's medical issues, reviewing all of her data, and collaborating with patient's care team: 35-minute Charges/Coding Visit Charges Inpatient E&M: 55362 Subs Hosp L2
--- NOTE | 2024-10-26 14:30 | CASEMGMT ---
JOSE BELTRE Readmission: Index admission dates:10/22/24-10/24/24 Index admission diagnosis:UTI, N/V/D, hypoxia, pancytopenia Index admission disposition:Home Current admission: Admitted 10/25/24 Current diagnosis:UTI, hypoxia Pt dc'd from index admission without needs. Pt dc'd on Macrobid for 5 more days. Pt had recent chemotherapy and worsened anemia from hospital stay and received 1 unit of blood with f/u CBC post dc. Pt hypoxia had resolved and pt did not require home oxygen. RN CM into pt room, pt sitting up in bed with dtr at bedside. Pt states she was home and weak and reported back to [facility] d/t hypoxia. Pt was taking her meds as ordered and has blood work and PCP appt set up. Pt reports being indep at home and denies any homegoing needs. Provided pt with a verbal local list of DME companies should she require oxygen at dc. Pt agreeable to [employer]. Green sheet on chart for this. DC Plan: Home, follow for oxygen.
[2024-10-26] MEDS: proCHLORPERazine 10 MG/2 ML Vial 5 MG IV (16:21)
[2024-10-26] MEDS: 0.9% Saline Lock 10 ML Syringe IV (16:21)
[2024-10-26] MEDS: Ceftriaxone 1 GM/50 ML BAG IV (22:30)
[2024-10-27 03:00] VITALS: BP 99/53; PULSE 86; RESP 16; TEMP 37; O2SAT 92
[2024-10-27] MEDS: Levothyroxine 50 MCG Tablet PO (04:56)
[2024-10-27 08:50] LABS: Hematocrit 26.5 % (37-47); Hemoglobin 8.7 g/dL (12.0-15.0); Mean Corp Hgb Conc 32.8 g/dL (32-36); Mean Corpuscular Hgb 29.1 pg (27.0-32.0); Mean Corpuscular Volume 88.6 fL (81-99); Mean Platelet Vol. 10.5 fl (6.2-12.0); POSITIVE COUNT YES; POSITIVE MORPHOLOGY YES; Platelet Count 137 K/mm3 (150-450); RBC Distribution Width CV 20.5 % (11.6-14.6); RBC Distribution Width SD 56.9 fl (35.1-43.9); Red Blood Count 2.99 M/mm3 (4.2-5.4); White Blood Count 1.4 K/mm3 (4.4-11.0)
[2024-10-27 09:00] VITALS: BP 126/80; PULSE 79; RESP 16; TEMP 36.7; O2SAT 94
[2024-10-27 09:14] LABS: Absolute Lymphocyte Count 0.37 X10^3/uL (0.83-4.51); Absolute Neutrophil Count 0.7 X10^3/uL (2.0-7.7); Basophil# 0.01 X10^3/uL; Basophil% 0.8 % (0-1); Eosinophil# 0.05 X10^3/uL; Eosinophils% 3.8 % (0-5); Lymphocyte # 0.37 X10^3/ul (0.83-4.51); Lymphocyte % 27.8 % (19-41); Monocyte# 0.19 X10^3/uL; Monocyte% 14.3 % (0-10); NRBC Flagged by Analyzer 2.3 % (0-5); Neutrophil # 0.68 X10^3/uL (2.7-7.7); POSITIVE DIFFERENTIAL YES
[2024-10-27 09:15] LABS: Differential Indicated SCAN CRITERIA MET
[2024-10-27] MEDS: Menthol/Lanolin/Calamine/Znox 113 GM Tube 1 APPLIC TOPICAL ×4 (09:16→20:51)
[2024-10-27] MEDS: Phenazopyridine 95 MG Tablet 190 MG PO (09:16)
[2024-10-27] MEDS: Escitalopram Oxalate 20 MG Tablet PO (09:16)
[2024-10-27] MEDS: Hydrocortisone 25 MG Suppository RC ×2 (09:16→20:50)
[2024-10-27 09:17] LABS: Anisocytosis 2+; Pathologist Review May foll; Polychromasia 1+
[2024-10-27] MEDS: oxyCODONE 5 MG Tablet 10 MG PO ×2 (09:17→17:48)
[2024-10-27] MEDS: Acetaminophen 325 MG Tablet 650 MG PO ×2 (09:17→17:48)
--- NOTE | 2024-10-27 10:23 | PN.HOSP_ITS ---
Reason for Visit Reason for Visit: Diagnoses Urinary tract infection, site not specified (10/25/24) Hypoxemia (10/25/24) Subjective Subjective Patient was seen and examined hemoglobin today was 8.7. Absolute white blood cell count was 700. Patient states that she is still having some dysuria. Urine culture grew out coag negative staph in low numbers. Objective Data Objective Data Vital Signs: Vital Signs Temp Pulse Resp BP Pulse Ox O2 Del Method O2 Flow Rate 98.0 F 79 16 126/80 H 94 Nasal Cannula 2 10/27/24 09:00 10/27/24 09:00 10/27/24 09:00 10/27/24 09:00 10/27/24 09:00 10/27/24 09:05 10/27/24 09:05 Oxygen Flow Rate (L/min) 2 Oxygen Delivery Method Nasal Cannula Weight: 84.1 kg Body Mass Index (BMI) 32.8 Intake & Output: Intake and Output for Last 24 Hours 10/25/24 10/26/24 10/27/24 23:59 23:59 23:59 Intake Total 50 / 50 2227 / 2477 400 / 400 Balance 50 / 50 2227 / 2477 400 / 400 Lab / Micro Data 10/27/24 08:24 10/26/24 05:37 Labs: Laboratory Results - last 24 hr 10/25/24 20:18: Blood Type A POSITIVE, Antibody Screen NEGATIVE, Crossmatch See Detail 10/27/24 08:24: WBC 1.4 L*, RBC 2.99 L, Hgb 8.7 L, Hct 26.5 L, MCV 88.6, MCH 29.1, MCHC 32.8, RDW Std Deviation 56.9 H, RDW Coeff of Willie 20.5 H, Plt Count 137 L, MPV 10.5, Immature Gran % (Auto) 2.300 H, Neut % (Auto) 51.0, Lymph % (Auto) 27.8, Rutherford % (Auto) 14.3 H, Eos % (Auto) 3.8, Baso % (Auto) 0.8, Absolute Neuts (auto) 0.7 L, Absolute Lymphs (auto) 0.37 L, Nucleated RBC % 2.3, Diff Path Review May , Polychromasia 1+, Anisocytosis 2+ Micro: Microbiology 03/21/25 20:12 Urine, Clean Catch Urine Culture - Preliminary Coag Negative Staph Physical Exam Narrative alert, oriented x3 and no apparent distress General Appearance: cooperative, well kempt and well developed Orientation / Consciousness: awake, oriented to person, oriented to place and oriented to time HEENT normocephalic, head/scalp atraumatic and moist oral mucous membranes Eyes PERRL, EOMs intact bilaterally and conjunctivae normal Neck supple, no JVD, thyroid normal and no carotid bruits General: trachea midline Resp normal respiratory effort, no retractions, no use of accessory muscles and clear to auscultation bilaterally Auscultation: Negative for rales, rhonchi or wheezes Cardio regular rate, regular rhythm, S1 normal heart sound, S2 normal heart sound, no murmurs, no rub and no gallops GI normal to inspection, nondistended, normoactive bowel sounds, soft to palpation, non-tender and non-distended Extremity no clubbing, cyanosis or edema Skin no rashes or lesions noted General Skin Exam: no breakdown Neuro oriented x3, CN's II-XII intact bilaterally, no focal motor deficits and no sensory deficits noted Sensorium / Orientation: awake and alert Speech: speech normal Psych affect normal Assessment & Plan Assessment/Plan (1) Hypoxia: PLAN: Plan 1. Hypoxia-etiology unclear at this point, patient's pulse ox is being monitored, we will wean oxygen if possible #2 pancytopenia secondary to chemotherapy-CBC will be repeated tomorrow #3 acute cystitis-patient remains on IV Rocephin, it appears there are low numbers of coag negative staph, await final culture result #4 cervical cancer-complicates care, management, recovery, and prognosis Total clinical time spent by myself addressing the patient's medical issues, reviewing all of her data, and collaborating with patient's care team: 35-minute Charges/Coding Visit Charges Inpatient E&M: 70902 Subs Hosp L2
[2024-10-27 14:32] VITALS: BP 117/67; PULSE 76; RESP 16; TEMP 36.7; O2SAT 93
[2024-10-27 20:40] VITALS: BP 129/80; PULSE 75; RESP 15; TEMP 36.7; O2SAT 92
[2024-10-27] MEDS: Ceftriaxone 1 GM/50 ML BAG IV (20:50)
[2024-10-27] MEDS: 0.9% Saline Lock 10 ML Syringe IV (20:50)
[2024-10-27 22:10] VITALS: PULSE 70; O2SAT 92
[2024-10-27 23:00] VITALS: O2SAT 92
[2024-10-28 03:00] VITALS: BP 138/86; PULSE 103; RESP 15; TEMP 36.9; O2SAT 100
[2024-10-28 04:28] VITALS: O2SAT 93
--- NOTE | 2024-10-28 05:30 | RAD_ITS ---
PROCEDURE: CHEST PA AND LATERAL 10/28/2024 REASON FOR EXAM: HYPOXIA TECHNIQUE: PA and lateral views of the chest. COMPARISON: 10/25/2024 FINDINGS: The lungs appear clear. Pulmonary vascularity appears within limits. No pleural effusion. Left port again noted. The cardiac and mediastinal contours appear within limits. Status post cholecystectomy again noted. Visualized osseous structures appear within limits. Mid to lower thoracic spine anterior osteophyte formation again noted. RAD/Chest PA and Lateral IMPRESSION: No evidence of acute disease. Reading Location: [id number]
[2024-10-28 05:47] VITALS: BMI 33.1
[2024-10-28] MEDS: Levothyroxine 50 MCG Tablet PO (06:25)
[2024-10-28] MEDS: Acetaminophen 325 MG Tablet 650 MG PO (06:55)
[2024-10-28] MEDS: oxyCODONE 5 MG Tablet 10 MG PO (06:56)
[2024-10-28 06:58] LABS: Hematocrit 26.9 % (37-47); Hemoglobin 8.8 g/dL (12.0-15.0); Mean Corp Hgb Conc 32.7 g/dL (32-36); Mean Corpuscular Hgb 29.4 pg (27.0-32.0); Mean Platelet Vol. 10.4 fl (6.2-12.0); POSITIVE COUNT YES; POSITIVE DIFFERENTIAL YES; POSITIVE MORPHOLOGY YES; Platelet Count 152 K/mm3 (150-450); RBC Distribution Width CV 21.2 % (11.6-14.6); RBC Distribution Width SD 59.4 fl (35.1-43.9); Red Blood Count 2.99 M/mm3 (4.2-5.4)
[2024-10-28 07:29] LABS: Differential Indicated MANUAL DIFF
--- NOTE | 2024-10-28 07:32 | WOUNDNOTE ---
Lab called with critical lab value WBC 1.4. JOSE Nicole aware. WBC same as yesterday and actually up from a couple days ago.
[2024-10-28 07:36] LABS: Eosinophil 2 % (0-5); Lymphocyte 41 % (19-41); Monocyte 6 % (0-10); Neutrophil-Band 5 % (0-5); Neutrophil-Segmented 46 % (47-70); Nucleated Red Bld Cells,Manual 2 % (0-5); Platelet Estimate ADEQUATE (ADEQ); Total Cells Counted 100 (MANUAL DIFF)
[2024-10-28 07:37] LABS: Anisocytosis 2+; Dohle Bodies RARE; Polychromasia 1+
[2024-10-28 07:38] LABS: Absolute Lymphocyte Count 0.57 X10^3/uL (0.83-4.51); Absolute Neutrophil Count 0.7 X10^3/uL (2.0-7.7); White Blood Count 1.4 K/mm3 (4.4-11.0)
[2024-10-28 07:39] LABS: Pathologist Review May foll
[2024-10-28 08:17] VITALS: RESP 18; O2SAT 96
--- NOTE | 2024-10-28 09:46 | DCINST_ITS ---
Discharge Instructions Diet Discharge Diet: No restrictions DC O2, CPAP, BIPAP needs Home O2 Discharge instructions: No Dressing / Incision Discharge Activity: Return to Normal Activity Weight Bearing Status: Full weight bearing Follow Up Care Test Results: Test results from this visit will be discussed in further detail at your follow- up appointment, if applicable. Discharge Plan Admission Admit Date/Time: 10/25/24 22:49 Primary Reason for Your Visit: Hypoxia-resolved, cystitis Attending Provider: Justin Powell Primary Care Provider: Claudette Alexandra Consulting Providers: Arleen Bangura Discharge Orders/Prescriptions Prescriptions: New cefdinir 300 mg capsule 300 mg PO BID Qty: 10 0RF Rx Instructions: Start on 10/29/2024 Continued escitalopram oxalate [Lexapro] 20 mg tablet 20 mg PO QDAY oxycodone 10 mg tablet 10 mg PO Q6H PRN (Reason: pain) prochlorperazine maleate 10 mg tablet 10 mg PO Q6H PRN (Reason: nausea and vomiting) Qty: 30 2RF ondansetron 8 mg tablet,disintegrating 8 mg PO Q8H PRN (Reason: nausea and vomiting) Qty: 30 2RF lidocaine-prilocaine 2.5-2.5 % cream 1 applic topical ONCE PRN (Reason: port access) 30 Days Qty: 30 2RF phenazopyridine [Pyridium] 200 mg tablet 200 mg PO TID PRN (Reason: pain) Qty: 60 1RF Rx Instructions: take one tab PO tid hydrocortisone acetate 25 mg suppository 25 mg [place] BID Qty: 12 0RF Rx Instructions: use twice daily as directed vitamin A 2,400 mcg Capsule 2,400 mcg PO DAILY cholecalciferol (vitamin D3) [Vitamin D3] 50 mcg (2,000 unit) Capsule 50 mcg PO DAILY levothyroxine 50 mcg tablet 50 mcg PO DAILY Discontinued nitrofurantoin monohyd/m-cryst [Macrobid] 100 mg capsule 100 mg PO BID 2 Days Qty: 4 0RF Rx Instructions: must administer with a meal/food Referrals / Follow Up: Katy Romero MD [Med Staff - Active Staff] - See Referral Note (As scheduled) Claudette Alexandra PA [Primary Care Provider] - Disposition Disposition (needs filled in before D/C Order can be placed): Home, Self Care
[2024-10-28 09:51] VITALS: O2SAT 91; O2SAT 95
--- NOTE | 2024-10-28 09:56 | CASEMGMT ---
Per the apartment community assistant manager, pt does not qualify for home oxygen.
--- NOTE | 2024-10-28 10:09 | PCM.DC.SUM ---
Providers Date of Admission: 10/25/24 Date of Discharge: 10/28/24 Primary Care Physician: RONI Robertson Reason For Visit: UTI, HYPOXIA Diagnosis Discharge Diagnosis (1) Hypoxia: Status: Acute Code(s): R09.02 - Hypoxemia Plan 1. Hypoxia-etiology unclear at this point, patient's pulse ox is being monitored, we will wean oxygen if possible #2 pancytopenia secondary to chemotherapy-CBC will be repeated tomorrow #3 acute cystitis-patient remains on IV Rocephin, it appears there are low numbers of coag negative staph, await final culture result #4 cervical cancer-complicates care, management, recovery, and prognosis Total clinical time spent by myself addressing the patient's medical issues, reviewing all of her data, and collaborating with patient's care team: 35-minute Medications at Discharge Home Medications cholecalciferol (vitamin D3) 50 mcg (2,000 unit) capsule (Vitamin D3) 50 mcg PO DAILY bone 11/05/21 vitamin A 2,400 mcg capsule 2,400 mcg PO DAILY health 11/05/21 escitalopram oxalate 20 mg tablet (Lexapro) 20 mg PO QDAY anxiety 04/18/24 levothyroxine 50 mcg tablet 50 mcg PO DAILY thyroid 07/25/24 oxycodone 10 mg tablet 10 mg PO Q6H PRN pain 09/03/24 lidocaine-prilocaine 2.5 %-2.5 % topical cream 1 applic topical ONCE PRN port access 30 days #30 grams 09/11/24 ondansetron 8 mg disintegrating tablet 8 mg PO Q8H PRN nausea and vomiting #30 tabs 09/11/24 prochlorperazine maleate 10 mg tablet 10 mg PO Q6H PRN nausea and vomiting #30 tabs 09/11/24 phenazopyridine 200 mg tablet (Pyridium) 200 mg PO TID PRN pain #60 tabs 10/08/24 hydrocortisone acetate 25 mg rectal suppository 25 mg [place] BID proctitis #12 ea 10/09/24 cefdinir 300 mg capsule 300 mg PO BID #10 caps 10/28/24 Hospital Course Operations None Procedures Blood transfusion Summary of Care Provided Minutes Spent on Discharge: 32 Hospital Course: This 49-year-old white female was seen in the emergency room at [facility] [place] with complaints of increased shortness of breath and weakness. Patient had been discharged in the hospital the day before after being treated for acute cystitis and a knee. Patient is undergoing chemotherapy for cervical cancer. Workup in the emergency room showed the patient's pulse ox to be low on room air she required 2 L of oxygen to maintain a pulse ox above 90%. Workup included a chest x-ray which was unremarkable, CBC showed a pancytopenia with an absolute neutrophil count of 700, hemoglobin of 8.1 and platelet count of 127. Patient was admitted to [place] [address] for hypoxia, anemia, and cystitis. Patient was treated with IV Rocephin, urine culture resulted in the low numbers of strep. Patient was transfused 1 unit of packed red blood cells due to complaints of fatigue from the patient and a low hemoglobin. I did talk to the patient's oncologist (Dr. Romero) by phone and he did not advise giving the patient Granix, he stated that her counts would come up eventually and he would follow-up with the patient in the office. Patient's oxygen was not able to be weaned, however, on her day of discharge 10/28/2024, her pulse oximeter was placed on her ear which gave a better reading and in fact the patient was walked and did not require oxygen either at rest or when walking at the time of discharge on 10/28/2024. On 10/28/2024, patient was seen and examined: On examination she appeared in good health and spirits, she does not appear to be in any distress. Vital signs as documented. Skin warm and dry and without overt rashes. Neck without JVD, thyroid appears normal, trachea is midline, neck is supple. Lungs clear, normal air movement was noted. Heart exam notable for regular rhythm, normal sounds and absence of murmurs, rubs or gallops. Abdomen unremarkable and without evidence of organomegaly, masses, or abdominal aortic enlargement, bowel sounds are present in all 4 quadrants, no abdominal tenderness was noted. Extremities nonedematous, no cyanosis was noted, no clubbing was noted. Neuro: Cranial nerves II through XII are grossly intact, no focal motor deficits were noted, sensation to light touch and pinprick is intact, motor exam 5/5 throughout. Psych: Patient is alert and oriented x3, she does not appear anxious or depressed, she does not appear agitated. Patient was discharged home in stable condition on 10/28/2024. Weight / BMI Weight Weight: 84.9 kg Body Mass Index (BMI) 33.1 ABG / Lab / Microbiology Data 10/28/24 06:30 10/26/24 05:37 Laboratory: Laboratory Results - last 24 hr 10/28/24 06:30: WBC 1.4 L*, RBC 2.99 L, Hgb 8.8 L, Hct 26.9 L, MCV 90.0, MCH 29.4, MCHC 32.7, RDW Std Deviation 59.4 H, RDW Coeff of Willie 21.2 H, Plt Count 152, MPV 10.4, Neut % (Auto) Not Reportable, Absolute Neuts (auto) 0.7 L, Absolute Lymphs (auto) 0.57 L, Total Counted 100, Neutrophils % (Manual) 46 L, Band Neutrophils % 5, Lymphocytes % (Manual) 41, Monocytes % (Manual) 6, Eosinophils % (Manual) 2, Nucleated RBCs/100 WBC 2, Diff Path Review May foll, Dohle Bodies RARE, Platelet Estimate ADEQUATE, Polychromasia 1+, Anisocytosis 2+ Microbiology: Microbiology 10/25/24 20:12 Urine, Clean Catch Urine Culture - Final Coag Negative Staph Radiography Diagnostic Testing: Radiology Impression Chest X-Ray 10/28/24 05:30 IMPRESSION: No evidence of acute disease. Reading Location: [facility] D/C Instructions Discharge Diet: No restrictions Weight Bearing Status: Full weight bearing DC O2, CPAP, BIPAP Needs Home O2 Discharge instructions: No Meaningful Use Info Meaningful Use Meaningful Use Diagnoses (Choose all that apply): None applicable Ischemic Stroke Statin Dosing Therapy Reference: STATIN DOSE THERAPY REFERENCE: * Patients > 75 years receive moderate or high dose statin therapy. * Patients 75 years or YOUNGER should receive HIGH intensity statin dose unless contraindicated. You will be required to document reason for non-treatment if statin daily dose does not meet guidelines. HIGH DOSE STATIN THERAPY DAILY Atorvastatin > than or = to 40 mg Rosuvastatin > than or = to 20 mg Amlodipine + Atorvastatin > than or = to 2.5/40 mg Ezetimibe + Simvastatin 10/80 mg Simvastatin 80mg Discharge Plan Admission Admit Date/Time: 10/25/24 22:49 Primary Reason for Your Visit: Hypoxia-resolved, cystitis Attending Provider: Justin Powell Primary Care Provider: Claudette Alexandra Consulting Providers: Arleen Bangura Discharge Orders/Prescriptions Prescriptions: New cefdinir 300 mg capsule 300 mg PO BID Qty: 10 0RF Rx Instructions: Start on 10/29/2024 Continued escitalopram oxalate [Lexapro] 20 mg tablet 20 mg PO QDAY oxycodone 10 mg tablet 10 mg PO Q6H PRN (Reason: pain) prochlorperazine maleate 10 mg tablet 10 mg PO Q6H PRN (Reason: nausea and vomiting) Qty: 30 2RF ondansetron 8 mg tablet,disintegrating 8 mg PO Q8H PRN (Reason: nausea and vomiting) Qty: 30 2RF lidocaine-prilocaine 2.5-2.5 % cream 1 applic topical ONCE PRN (Reason: port access) 30 Days Qty: 30 2RF phenazopyridine [Pyridium] 200 mg tablet 200 mg PO TID PRN (Reason: pain) Qty: 60 1RF Rx Instructions: take one tab PO tid hydrocortisone acetate 25 mg suppository 25 mg [place] BID Qty: 12 0RF Rx Instructions: use twice daily as directed vitamin A 2,400 mcg Capsule 2,400 mcg PO DAILY cholecalciferol (vitamin D3) [Vitamin D3] 50 mcg (2,000 unit) Capsule 50 mcg PO DAILY levothyroxine 50 mcg tablet 50 mcg PO DAILY Discontinued nitrofurantoin monohyd/m-cryst [Macrobid] 100 mg capsule 100 mg PO BID 2 Days Qty: 4 0RF Rx Instructions: must administer with a meal/food Referrals / Follow Up: Katy Romero MD [Med Staff - Active Staff] - See Referral Note (As scheduled) Claudette Alexandra PA [Primary Care Provider] - Disposition Disposition (needs filled in before D/C Order can be placed): Home, Self Care Charges/Coding Visit Charges Inpatient E&M: 64643 Disch Hosp >30min
--- NOTE | 2024-10-28 10:57 | PHA.DC.MC.R ---
Pharmacy [facility] has performed discharge medication reconciliation and counseling for this patient. 1. CEFDINIR 300MG PO BID X 5 DAYS 2. STOP MACROBID The patient's discharge medication list was reviewed for discrepancies and discrepancies were resolved. The patient was counseled on the following discharge medications and changes in medications for homegoing were reviewed. The Reason for Use, instructions for use, and potential side effects were reviewed for all new medications. The patient's questions regarding all of their medications were answered. The patient was able to verbally demonstrate an understanding of their discharge medications. Medications at Discharge Home Medications cholecalciferol (vitamin D3) 50 mcg (2,000 unit) capsule (Vitamin D3) 50 mcg PO DAILY bone 11/05/21 vitamin A 2,400 mcg capsule 2,400 mcg PO DAILY health 11/05/21 escitalopram oxalate 20 mg tablet (Lexapro) 20 mg PO QDAY anxiety 04/18/24 levothyroxine 50 mcg tablet 50 mcg PO DAILY thyroid 07/25/24 oxycodone 10 mg tablet 10 mg PO Q6H PRN pain 09/03/24 lidocaine-prilocaine 2.5 %-2.5 % topical cream 1 applic topical ONCE PRN port access 30 days #30 grams 09/11/24 ondansetron 8 mg disintegrating tablet 8 mg PO Q8H PRN nausea and vomiting #30 tabs 09/11/24 prochlorperazine maleate 10 mg tablet 10 mg PO Q6H PRN nausea and vomiting #30 tabs 09/11/24 phenazopyridine 200 mg tablet (Pyridium) 200 mg PO TID PRN pain #60 tabs 10/08/24 hydrocortisone acetate 25 mg rectal suppository 25 mg [place] BID proctitis #12 ea 10/09/24 cefdinir 300 mg capsule 300 mg PO BID #10 caps 10/28/24
== END 2024-10-28 12:13 | disposition home or self-care (01) | DRG 689 ==
LOC: ED 22:57 → MS3 23:04
PROVIDERS: Admitting Provider Family Medicine; Emergency Provider Emergency Medicine; PCP Physician Assistant; Referring Provider Family Medicine; Visit Provider Internal Medicine
DX: N30.00 Acute cystitis without hematuria (principal); D61.810 Antineoplastic chemotherapy induced pancytopenia; C53.9 Malignant neoplasm of cervix uteri, unspecified; D63.1 Anemia in chronic kidney disease; E03.9 Hypothyroidism, unspecified; E66.9 Obesity, unspecified; D50.9 Iron deficiency anemia, unspecified; N18.1 Chronic kidney disease, stage 1; K62.7 Radiation proctitis; K21.9 Gastro-esophageal reflux disease without esophagitis; E87.6 Hypokalemia; F41.8 Other specified anxiety disorders; D70.1 Agranulocytosis secondary to cancer chemotherapy; Z92.3 Personal history of irradiation; R09.02 Hypoxemia; Z90.710 Acquired absence of both cervix and uterus; Z79.890 Hormone replacement therapy; Z79.899 Other long term (current) drug therapy; Z92.21 Personal history of antineoplastic chemotherapy; Z90.49 Acquired absence of other specified parts of digestive tract; Z68.34 Body mass index [BMI] 34.0-34.9, adult; R53.83 Other fatigue
CPT/HCPCS: 36415; 71046; 80053; 81001; 83735; 84100; 85025; 86850; 86900; 86901; 87086; 87088; 94668; 97802; 99285; P9016; A4216

== ENCOUNTER → 2025-05-12 | Outpatient (CLI) | payer OTHER, SELFPAY | END | disposition home or self-care (01) | LOC: LABSPEC 12:10 | PROVIDERS: PCP Physician Assistant; Referring Provider Obstetrics & Gynecology; Visit Provider Obstetrics & Gynecology | DX: Z12.4 Encounter for screening for malignant neoplasm of cervix (principal); C53.9 Malignant neoplasm of cervix uteri, unspecified | CPT/HCPCS: 87624; 88175; G0145 ==

== ENCOUNTER → 2025-06-24 | Outpatient (CLI) | payer SELFPAY, OTHER ==
--- NOTE | 2025-06-24 15:31 | VDLE_ITS ---
Reason For Study Reason For Study: LLE Swelling Post Op RIGHT LEFT CFV is compressible, spontaneous, phasic, competent GSV is normal. and demonstrates normal augmentation. CFV is compressible, spontaneous, phasic, competent, Procedure and demonstrates normal augmentation. This is a venous duplex using B-mode, color flow and FV is compressible, spontaneous, phasic, competent spectral Doppler. and demonstrates normal augmentation. Exam performed in department. POP V is compressible, spontaneous, phasic, competent The exam was diagnostic. and demonstrates normal augmentation. A preliminary report was called and/or faxed to T/P Trunk is compressible. [facility] office. PTV is compressible. LT PerV is compressible. VL/Venous Duplex US, Unilateral Interpretation Summary Deep veins of the left lower extremity are patent and compressible segmentally. There is no evidence of left lower extremity deep vein thrombosis. Valvular competence appears intact within the p roximal deep venous system on the left . The left great saphenous vein appears patent and compressible segmentally. The right common femoral vein is patent and compressible . Ordering Physician: Pako Wilcox Referring Physician: Claudette Alexandra Performed By: Jack Jensen RVT
== END | disposition home or self-care (01) ==
PROVIDERS: PCP Physician Assistant; Referring Provider Orthopaedic Surgery; Visit Provider Orthopaedic Surgery
DX: R22.42 Localized swelling, mass and lump, left lower limb (principal)
CPT/HCPCS: 93971